=== PATIENT | female | born 1980 ===

== ENCOUNTER 2023-06-25 15:13 | Outpatient (AMB) | payer OTHER, SELFPAY ==
--- NOTE | 2023-06-25 15:15 | A.OFFVIS_ITS ---
Vital Signs 06/25/23 15:18 06/25/23 15:18 Height 5 ft 6 in 5 ft 6 in BP 106/74 Blood Pressure Location Rt brachial Position Sitting Pulse 99 Pulse Source Pulse Oximeter Pulse Oximetry (%) 100 Oxygen Delivery Method Room Air Intake Visit Reasons: ENP-Chronic Migraines-CONF Intake Note: Patient for chronic migraines. Patient has migraines every day she takes rizatriptan it goes away but headache comes back later on. Allergies penicillin V Allergy (Unknown, Verified 06/25/23 15:20) Rash Sulfa (Sulfonamide Antibiotics) Allergy (Unknown, Verified 06/25/23 15:20) Rash Medication List - Last Reconciled 06/25/23 by ESTELLA Moreno carisoprodol 350 mg PO BID-TID PRN cholecalciferol (vitamin D3) (Vitamin D3) 25 mcg PO DAILY cyanocobalamin (vitamin B-12) 1,000 mcg PO DAILY diclofenac sodium 1.5% 30 drps topical TID escitalopram oxalate mg PO ibuprofen (IBU) 800 mg PO TID linaclotide (Linzess) 145 mcg PO DAILY loratadine 10 mg PO DAILY lorazepam 1 mg PO BID oxycodone ER (OxyContin) 20 mg PO BID pregabalin 200 mg PO BID HPI Comments Details: Right handed 42-yr-old female presents for new pt evaluation of headache disorder. Pt reports she has a h/o migraine in [id number], which eventually subsided for years. Then after she had her 2nd Covid-19 infection in Feb 2020 which resulted in primarily neurological s/s including cognitive difficulties and excessive daytime sleepiness w/ long-hauler COVID 19 symptoms (1st Covid-19 May w/ resp s/s), the migraines returned. She wakes up every day with a migraine, which responds to Rizatriptan 1/2 - 1 tab but then the headache returns later in the day. Pt also endorses:? Musculoskeletal disorders or injury: 2009 spinal fusion d/t scoliosis. Has handed neck tightness. BUE right greater than left pins and needles and weakness and swelling anytime she wakes up even after a short nap. Has done OT has not helped. Cramps: leg cramps at rest Mood d/o: Anxiety, Depression Sleep d/o: sleep diff, patient states she is diagnosed herself with narcolepsy. Respiratory d/o: Asthma Clotting or hematology d/o: RUE DVT in 2021, s/p Eliquis x's 6 months. She did see her assistant manager pt at [place]- Dr Vogt. History of seizure, syncope, or drop attacks: She has passed out quite often - states d/t hypotension, not eating. GI d/o: IBS- Constipation. Pertinent denials include: History of concussion/head injury, Respiratory d/o, CV disease, Family history of migraine or other headache disorder Headache questionnaire:? Typical headache characteristics: Prodrome symptoms: none Aura: No preceding aura. During headache may have blurry vision, halos, flashing lights, weekly lines, floaters, difficulty focusing eyes. Difficulty speaking, stuttering speech, word-finding difficulty. Pain intensity: Severe Location, quality, characteristics: Throbbing in bilateral but more left-sided temples and frontal region, can also be on top of head. Associated symptoms? Severe photophobia, severe phonophobia, osmophobia, nausea and vomiting, severe dizziness, difficulty concentrating, teary eye, fatigue. Activity intolerance. Hand and finger weakness and tingling, occurs with and without headache, often upon waking up. Postdrome: Lingering headache Triggers: Poor sleep, strong smells from food, waking up from sleep and nap, skipping meals, stress. Standing up and bending over worsens headache. Menstrual triggers: headaches are worse. Time of day: No specific time of day Duration and Frequency: 2-3 days per week. With acute analgesic, her request hours. Without medication lasts all day. How does headache impact your life? Can not do daily activities. Current acute medication use/interventions: On carisoprodol, ibuprofen, OxyContin for chronic pain syndrome Current preventative medication use: None Non-pharmacological interventions: Rest Lifestyle considerations: Sleep routine: Bedtime: 3-6am. Wake-up time: 2-3 hours after falling asleep. Sleep difficulties: Endorses: Snoring- if very tired, Excessive daytime sleepiness, Fatigue, Leg Cramps- at rest. Extreme emotion- has caused dizziness where she has to sit down. Vivid dreams- and within seem very real upon awakenin g. No family h/o narcolepsy s/s. Caffeine use: None Substance use: None Exercise:? Stretching Employment:? On disability d/t chronic back pain Family planning: No current plans. [facility] Medical History (Updated 07/08/23 @ 07:43 by ESTELLA Moreno) Superficial venous thrombosis of right upper extremity Major depressive disorder Reactive airway disease Hematuria Fibromyalgia Fibroadenoma Esophageal dysmotility GODWIN (generalized anxiety disorder) Dry eye syndrome Chronic back pain Anemia Surgical History H/O lumbosacral spine surgery Family History Mother HTN (hypertension) Social History Patient Tobacco Use Status: Never used Tobacco Physical Exam Vital Signs: Last Vital Signs Pulse 99 06/25/23 15:18 BP 106/74 06/25/23 15:18 Pulse Ox 100 06/25/23 15:18 Oxygen Delivery Method Room Air 06/25/23 15:18 Const Orientation/consciousness: patient oriented x3 HEENT Other: No palpable scalp tenderness. Head: Yes normocephalic Resp Effort & Inspection: normal respiratory effort and able to speak in complete sentences Neuro Other: Photophobia Bilateral cervical tightness. General: patient oriented x3 Cranial nerves: Yes CN's II-XII intact bilaterally Cognition (Neuro): normal cognition Gait exam (Neuro): Normal gait present Deep tendon reflexes (DTR's): Right triceps reflex intensity grade: 2+, Left triceps reflex intensity grade: 2+, Rt Biceps (C5, C6): 2+, Left biceps reflex intensity grade: 2+, Right brachioradialis reflex intensity grade: 2+, Left brachioradialis reflex intensity grade: 2+, Right patellar reflex intensity grade: 2+ and Left patellar reflex intensity grade: 2+ Coordination: [id number] test normal and Romberg test negative Pupils: Normal pupillary reactivity/response: bilateral Psych Appearance: grossly normal Mental Status: mental status grossly normal Speech and movement: Normal speech and movement present Affect: normal affect Attitude: cooperative Thought process: Normal thought process present Results Reviewed Results Reviewed: 07/30/23, Brain MRI w/wo: COMPARISON: CT scan of the head 08/09/2017 FINDINGS: The visualized cervical marrow is mildly diminished in signal on the sagittal T1-weighted images. This may be due to red marrow transformation, which can be correlated with CBC. The ventricles are normal in size. The cervicomedullary junction and midline structures are unremarkable. There is no mass effect or extra-axial fluid collection. The flow voids through the muscogee of [place] are maintained, and there is no diffusion abnormality or abnormal susceptibility artifact. The brain parenchyma is normal in signal. The major dural venous sinuses are patent. No abnormal intracranial enhancement. The visualized extracranial soft tissues and orbital structures are unremarkable. IMPRESSION: 1. Unremarkable MRI examination of the brain with and without contrast. 2. The visualized the visualized cervical marrow is mildly diminished in signal on the sagittal T1-weighted images, which may be due to red marrow transformation. , CT Head Venogram COMPARISONS: CT head 08/09/2017. FINDINGS: The superior sagittal sinus and bilateral transverse sinuses, sigmoid sinuses, and jugular bulbs are patent and normal in caliber. The right transverse and sigmoid sinuses are dominant. The internal cerebral veins, basal veins of Vilma, vein of [place], and straight sinus are patent. Cavernous sinuses demonstrate symmetric contour and enhancement. No filling defect or occlusion in the visualized major cortical veins. Other findings: Major intracranial arteries are patent. Visualized intracranial structures are unremarkable. Extracranial soft tissues and bones are unremarkable. Paranasal sinuses and mastoids are clear. IMPRESSION: Normal CT venogram of head. No evidence of dural venous sinus thrombosis. 05/21/23, C-spine MRI w/o, COMPARISON: Cervical spine MRI performed 11/24/2018. FINDINGS: ALIGNMENT, VERTEBRAE, MARROW, AND DISCS: Cervical alignment is normal. Partially imaged thoracic scoliosis. Vertebral body heights are preserved. There is no significant marrow signal abnormality. Intervertebral disc heights are maintained. There is partially imaged artifact from upper thoracic posterior fusion hardware. POSTERIOR FOSSA AND CORD: Visualized posterior fossa is normal. The cervical cord is normal in signal and caliber. PARASPINAL TISSUES: Soft tissues of the neck are unremarkable. Major cervical flow voids are present. DETAILED FINDINGS BY LEVEL: C2-C3: Small right paracentral disc protrusion. No significant canal stenosis or neural foraminal narrowing. C3-C4: Small central disc protrusion. No significant canal stenosis or neural foraminal narrowing. C4-C5: Mild right neural foraminal narrowing due to uncovertebral joint spurring, new. No significant canal stenosis or neural foraminal narrowing. C5-C6: Uncovertebral joint spurring again resulting in mild right neural foraminal narrowing. No significant canal stenosis or left neural foraminal narrowing. C6-C7: There is again uncovertebral joint spurring causing mild right neural foraminal narrowing. No significant canal stenosis or left neural foraminal narrowing. C7-T1: No significant canal stenosis or neural foraminal narrowing. IMPRESSION: Mild degenerative changes of the cervical spine as described above. In addition to the existing mild neural foraminal stenosis on the right at C5-C6 and C6-C7, there is now also mild right neural foraminal narrowing at C4-C5 due to uncovertebral joint spurring. Assessment & Plan Assessment & Plan (1) Morning headache: Code(s): R51.9 - Headache, unspecified Category: Medical (2) Snoring: Code(s): R06.83 - Snoring Category: Medical (3) Excessive daytime sleepiness: Code(s): G47.19 - Other hypersomnia Category: Medical (4) Parasomnia: Code(s): G47.50 - Parasomnia, unspecified Category: Medical (5) Cervicalgia: Code(s): M54.2 - Cervicalgia Category: Medical (6) Insomnia: Code(s): G47.00 - Insomnia, unspecified Category: Medical (7) Migraine with aura: Code(s): G43.109 - Migraine with aura, not intractable, without status migrainosus Category: Medical Plan Pt advised to undergo: In-lab PSG to assess for sleep apnea, PLMS. In-lab PSG requested as patient is chronic opioid therapy. Will request previous EMG and had spine imaging. For overall headache management: Optimize good self-care, including but not limited to maintaining a healthy diet , adequate fluid intake, adequate sleep, and engaging in regular physical activity. For headache triggers: Track headaches, especially after any treatment regimen changes. [employer] is one of many headache tracking apps. Light sensitivity tips: Patient may try blue light filtering glasses, green glasses, green light therapy. Avoid wearing sunglasses inside. For acute headache treatment: Discussed importance of taking acute medications at the first sign of headache, however stressed importance of avoiding acute medication overuse (especially with combined headache medications). Trial Ubrogepant (Ubrelvy) 100mg tab, 1/2 - 1 tab (50-100mg) at onset of headache, may repeat in 2 hours. Max of 2 tabs (200mg) per 24 hours. May adjunct with OTC Tylenol 650mg q 4 hours, Ibuprofen 600mg q 6 hours, or Naproxen 440mg q 12 hrs prn. May continue rizatriptan 10 mg p.r.n., may take with Ubrelvy. Potential adverse effects of gepants, including but not limited to fatigue, nausea, dry mouth, constipation. Previous acute migraine medication trials: Sumatriptan- ineffective, drowsy. Zolmitriptan- ineffective. Acute migraine medication contraindications: None at this time For headache prevention medication: Preventative medications should be taken routinely as prescribed for best effect, it may take several weeks for full effect to take effect. Start Riboflavin 400mg qam Continue Magnesium 400-500mg qhs Start Emgality 240 mg subcu x1, followed by 120 mg subcu q.month. Potential adverse effects of Emgality, including but not limited to injection site reactions. Previous migraine prevention medication trials: Amitriptyline and Nortriptyline: not tolerated, Duloxetine- caused hallucinations, Venlafaxine- not tolerated, Indomethacin- unsure Migraine prevention medication contraindications: BBs and ant-HTN tx's d/t low BP and h/o syncope. f/b Dr Aguilera- PS&S. Information also given on non-pharmacological interventions, such as Cefaly or Nerivio neuromodulation devices. Case discussed with Dr Cintia Lua. Pt to follow-up in 2-3 months or sooner prn. Orders: Orders RT PSG in-lab sleep study 06/25/23 R51.9 - Headache, unspecified, R06.83 - Snoring, G47.19 - Other hypersomnia, G47.50 - Parasomnia, unspecified, F11.90 - Opioid use, unspecified, uncomplicated Medications: New ubrogepant (Ubrelvy) take at onset of migraine, may repeat in 2hrs 50 - 100 mg (0.5 - 1 x 100 mg) PO ONCE PRN 16 tabs 3RF migraine headache 30 days riboflavin (vitamin B2) 400 mg PO DAILY 30 tabs 6RF 30 days galcanezumab-gnlm (Emgality Pen) Loading dose: 120 mg subcu injection x2 in alternate sites (total 240 mg). To be followed by maintenance dose of 120 mg subcu q.month. 240 mg (2 mL) subcut ONCE 2 mL 0RF 30 days Coding Level of Care Code New Pt Level 4 (02669) Diagnoses Morning headache R51.9 Snoring R06.83 Excessive daytime sleepiness G47.19 Parasomnia G47.50 Cervicalgia M54.2 Insomnia G47.00 Migraine with aura G43.109 Miracle Sleepiness Scale Questions Sitting and reading: high chance of dozing Watching TV: high chance of dozing Sitting inactive in a theater, movie etc.: high chance of dozing As a passenger in a car for an hour without break: high chance of dozing Lying down in the afternoon when circumstances permit: high chance of dozing Sitting and talking to someone: slight chance of dozing Sitting quietly after lunch without alcohol: high chance of dozing In a car, while stopped for a few minutes in the traffic: slight chance of dozing ESS < 10: normal, ESS > 12: pathologic: 20
[2023-06-25 15:18] VITALS: BP 106/74; PULSE 99; O2SAT 100
== END 2023-06-25 16:30 | disposition home or self-care (01) ==
PROVIDERS: PCP Internal Medicine; Visit Provider Nurse Practitioner Family
DX: R51.9 Headache, unspecified (principal); R06.83 Snoring; G47.19 Other hypersomnia; G47.50 Parasomnia, unspecified; M54.2 Cervicalgia; G47.00 Insomnia, unspecified; G43.109 Migraine with aura, not intractable, without status migrainosus
CPT/HCPCS: 99204

== ENCOUNTER → 2023-06-25 15:13 | Outpatient (BNVA) | payer OTHER, SELFPAY | PROVIDERS: PCP Internal Medicine; Visit Provider Nurse Practitioner Family | DX: G47.50 Parasomnia, unspecified (principal); G47.19 Other hypersomnia; G47.00 Insomnia, unspecified; G43.109 Migraine with aura, not intractable, without status migrainosus; M54.2 Cervicalgia; R06.83 Snoring; Z79.891 Long term (current) use of opiate analgesic | CPT/HCPCS: 99202 ==

== ENCOUNTER → 2023-08-11 20:30 | Outpatient (REF) | payer OTHER, SELFPAY | LOC: HO.SL 20:30 | PROVIDERS: PCP Nurse Practitioner; Visit Provider Nurse Practitioner Family | DX: G47.19 Other hypersomnia (principal); G47.50 Parasomnia, unspecified; R06.83 Snoring; R51.9 Headache, unspecified | CPT/HCPCS: 95810 ==

== ENCOUNTER → 2023-08-11 22:04 | Outpatient (BNV) | payer OTHER, SELFPAY | PROVIDERS: PCP Nurse Practitioner; Visit Provider Psychiatry & Neurology Neurology | DX: R06.83 Snoring (principal) | CPT/HCPCS: 95810 ==

== ENCOUNTER 2023-09-29 07:32 | Outpatient (AMB) | payer OTHER, SELFPAY ==
--- NOTE | 2023-09-29 07:32 | MHC.OFFVIS ---
Intake Visit Reasons: 3 mo f/u Intake Note: Pt presents for 4 months via telehealth for follow up for migraines. Pt states she has seen slight improvement. Program Clinician Required: No Allergies penicillin V Allergy (Unknown, Verified 09/29/23 07:34) Rash Sulfa (Sulfonamide Antibiotics) Allergy (Unknown, Verified 09/29/23 07:34) Rash Medication List - Last Reconciled 09/29/23 by ESTELLA Moreno carisoprodol 350 mg PO BID-TID PRN cholecalciferol (vitamin D3) (Vitamin D3) 25 mcg PO DAILY cyanocobalamin (vitamin B-12) 1,000 mcg PO DAILY diclofenac sodium 1.5% 30 drps topical TID escitalopram oxalate mg PO galcanezumab-gnlm (Emgality Pen) 240 mg (2 mL) subcut ONCE 30 days ibuprofen (IBU) 800 mg PO TID linaclotide (Linzess) 145 mcg PO DAILY loratadine 10 mg PO DAILY lorazepam 1 mg PO BID modafinil 100 mg PO DAILY 30 days naloxegol (Movantik) 12.5 mg PO QAM oxycodone ER (OxyContin) 20 mg PO BID pregabalin 200 mg PO BID riboflavin (vitamin B2) 400 mg PO DAILY 30 days ubrogepant (Ubrelvy) 50 - 100 mg (0.5 - 1 x 100 mg) PO ONCE PRN 30 days HPI Comments Details: 43-yr-old female presents for f/u televisit via [employer]. Pt reports she had an interval steroid cervical injection, which has has helped a little. She has also been having increased constipation- working w/ GI. She states she is not having a daily headache, but she continues to have 1-2 migraines days per week. Notes that her migraines are typically better when the wetaher is warmer, and worse when the weather is colder. She is currently using Rizatriptan prn- takes the edge off and causes sleepiness. The Ubrelvy has not yet been approved or denied. Her Emgality was just approved by her insurance in late August. Unfortunately, she picked the Emgality up and did not refrigerate it- states the pharmacy did not tell her to refrigerate it. And she was nervous to take it so has not used it yet. Baseline headache characteristics: Aura: No preceding aura. During headache may have blurry vision, halos, flashing lights, weekly lines, floaters, difficulty focusing eyes. Difficulty speaking, stuttering speech, word-finding difficulty. Pain intensity: Severe Location, quality, characteristics: Throbbing in bilateral but more left-sided temples and frontal region, can also be on top of head. Associated symptoms? Severe photophobia, severe phonophobia, osmophobia, nausea and vomiting, severe dizziness, difficulty concentrating, teary eye, fatigue. Activity intolerance. Hand and finger weakness and tingling, occurs with and without headache, often upon waking up. Postdrome: Lingering headache The in-lab sleep study did not show any evidence of sleep apnea or PLMS. She continues to have excessive daytime. She states she has felt light headed- like she would fall over if she did not grab onto something- when laughing. She was tried on Methylphenidate a few years ago- when in school to help with her focus- which was helpful. COUNT INCLUDES THE [facility] Medical History (Updated 09/29/23 @ 18:17 by ESTELLA Moreno) Superficial venous thrombosis of right upper extremity Major depressive disorder Reactive airway disease Hematuria Fibromyalgia Fibroadenoma Esophageal dysmotility GODWIN (generalized anxiety disorder) Dry eye syndrome Chronic back pain Anemia Surgical History H/O lumbosacral spine surgery Family History Mother HTN (hypertension) Social History Patient Tobacco Use Status: Never used Tobacco Physical Exam Const General: cooperative and no acute distress Orientation/consciousness: patient oriented x3 Resp Effort & Inspection: normal respiratory effort and able to speak in complete sentences Neuro General: patient oriented x3 Cognition (Neuro): normal cognition Psych Appearance: grossly normal Mental Status: mental status grossly normal Speech and movement: Clear speech present Affect: normal affect Attitude: cooperative Telehealth Telehealth Telehealth Platform: [facility] Location of provider rendering services: practice address Location of patient: address on file Patient Identification confirmed using: Name, : Yes Telehealth method: video Patient verbally consented to treatment: Yes Patient verbally consented to billing insurance company: Yes Patient informed of any privacy concerns related to visit: Yes Minutes spent on Phone/Video with Pt.: 29 Assessment & Plan Assessment & Plan (1) Migraine with aura: Code(s): G43.109 - Migraine with aura, not intractable, without status migrainosus Category: Medical (2) Hypersomnia: Code(s): G47.10 - Hypersomnia, unspecified Category: Medical Plan For excessive daytime sleepiness/hypersomnia. Reviewed In-lab PSG- no evidence for sleep apnea or PLMS. Discussed f/u tetsing- in-lab PSG w/ MSLT- however pt would need to hold her lorazepam, escitalopram, pregbablin- and she is not currently comfortable doing this. I am not confident that pt's episode of lightheadedness is actually a catpley symptom, and pt is not comfortable undergoing LP to obtain CSF Orexin level. Thus, will pt w/ low dose Modafinil 100mg qam - in hope sthis helps her EDS/hypersomnia s/s. Will forward my note to Dr Aguilera- her pain managmenet provide. ? ? For overall headache management: Optimize good self-care, including but not limited to maintaining a healthy diet, adequate fluid intake, adequate sleep, and engaging in regular physical activity. ? For acute headache treatment: Discussed importance of taking acute medications at the first sign of headache, however stressed importance of avoiding acute medication overuse (especially with combined headache medications). Will f/u on prior auth status of Ubrelvy. When available, start Ubrogepant (Ubrelvy) 100mg tab, 1/2 - 1 tab (50-100mg) at onset of headache, may repeat in 2 hours. Max of 2 tabs (200mg) per 24 hours. May adjunct with OTC Tylenol 650mg q 4 hours, Ibuprofen 600mg q 6 hours, or Naproxen 440mg q 12 hrs prn. May continue rizatriptan 10 mg p.r.n., may take with Ubrelvy. Potential adverse effects of gepants, including but not limited to fatigue, nausea, dry mouth, constipation. Previous acute migraine medication trials: Sumatriptan- ineffective, drowsy. Zolmitriptan- ineffective. Acute migraine medication contraindications: None at this time ? For headache prevention medication: Preventative medications should be taken routinely as prescribed for best effect, it may take several weeks for full effect to take effect. Start Riboflavin 400mg qam Continue Magnesium 400-500mg qhs Again start Emgality 240 mg subcu x1, followed by 120 mg subcu q.month. Will arrange injection training appt w/ our RN- will provide a sample to replace the Emgality loading dose. Potential adverse effects of Emgality, including but not limited to injection site reactions. Previous migraine prevention medication trials: Amitriptyline and Nortriptyline: not tolerated, Duloxetine- caused hallucinations, Venlafaxine- not tolerated, Indomethacin- unsure Migraine prevention medication contraindications: BBs and ant-HTN tx's d/t low BP and h/o syncope. Caution w/ aimovig or qulipta as pt has constipation. ? ? Pt to follow-up in 3-6 months or sooner prn. Addendum- Pharmacy called- concenred that Modafinil would reduce effectiveness of pain medication, thus order for low dose methylphenidate was placed instead. Medications: New modafinil 100 mg PO DAILY 30 days 30 tabs 1RF Coding Level of Care Code Tele Est Pt Level 4 (42380) Diagnoses Migraine with aura G43.109 Hypersomnia G47.10
== END 2023-09-29 11:10 | disposition home or self-care (01) ==
LOC: HO.HSMS 07:32
PROVIDERS: PCP Internal Medicine; Visit Provider Nurse Practitioner Family
DX: G43.109 Migraine with aura, not intractable, without status migrainosus (principal); G47.10 Hypersomnia, unspecified
CPT/HCPCS: 99214

== ENCOUNTER → 2023-09-29 07:32 | Outpatient (BNVA) | payer OTHER, SELFPAY | PROVIDERS: PCP Internal Medicine; Visit Provider Nurse Practitioner Family ==

== ENCOUNTER → 2023-10-01 15:07 | Outpatient (BNVA) | payer OTHER, SELFPAY | PROVIDERS: PCP Internal Medicine; Visit Provider Nurse Practitioner Family ==

== ENCOUNTER → 2023-11-02 15:18 | Outpatient (BNVA) | payer OTHER, SELFPAY | PROVIDERS: PCP Internal Medicine; Visit Provider Nurse Practitioner Family ==

== ENCOUNTER → 2023-12-06 15:44 | Outpatient (BNVA) | payer OTHER, SELFPAY | PROVIDERS: PCP Internal Medicine; Visit Provider Nurse Practitioner Family ==

== ENCOUNTER → 2024-01-13 14:44 | Outpatient (BNVA) | payer OTHER, SELFPAY | PROVIDERS: PCP Internal Medicine; Visit Provider Nurse Practitioner Family ==

== ENCOUNTER → 2024-02-17 14:41 | Outpatient (BNVA) | payer OTHER, SELFPAY | PROVIDERS: PCP Internal Medicine; Visit Provider Nurse Practitioner Family ==

== ENCOUNTER 2024-04-18 14:09 | Outpatient (AMB) | payer OTHER, SELFPAY ==
--- NOTE | 2024-04-18 14:30 | MHC.OFFVIS ---
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 Patient reports, she was diagnosed with Left upper arm venous thrombosis approx 1-2 weeks ago. She was restarted on Eliquis. She previously took Eliquis for a RUE superficial thrombosis. She is f/b Dr Whitehead at [facility] heme/onc. Also states she was told she has a atypical form of anemia. Pt reports today she is most bothered by her BUE hand and finger dull aching pain and weakness. States this pain is triggered by anytime she falls asleep, and then lasts for hours. Her hand grasp feels weak. She continues to have neck pain and stiffness- states her last cervical nerve block was not helpful. Her PCP gave her a steroid course 2 weeks ago, which helped but no she is a not continue this for long. She recently saw [facility] rheumatology, where she had normal hand x-rays, and did not offer new treatment options. In the past, she did OT, wrist splints in the past, which did not help. Had a right elbow injection once, years ago, but caused right 1st finger numbness. She notes hse has joint pain and stiffness everywhere. 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 Pt reports the Emgality is helpful, but it wears off 7-10 days before her next dose is due. She is using Rizatriptan when home, as its onset is quicker but makes her sleepy. And uses Ubrelvy when outside of the home, as it helps but does not cause as much sleepiness. She states she is not having a daily headache, but she continues to have 1-2 migraines days per week. Notes that her migraines are typically better when the wetaher is warmer, and worse when the weather is colder. She is currently using Rizatriptan prn- takes the edge off and causes sleepiness. The Ubrelvy has not yet been approved or denied. Her Emgality was just approved by her insurance in late August. Unfortunately, she picked the Emgality up and did not refrigerate it- states the pharmacy did not tell her to refrigerate it. And she was nervous to take it so has not used it yet. Baseline headache characteristics: Aura: No preceding aura. During headache may have blurry vision, halos, flashing lights, weekly lines, floaters, difficulty focusing eyes. Difficulty speaking, stuttering speech, word-finding difficulty. Pain intensity: Severe Location, quality, characteristics: Throbbing in bilateral but more left-sided temples and frontal region, can also be on top of head. Associated symptoms? Severe photophobia, severe phonophobia, osmophobia, nausea and vomiting, severe dizziness, difficulty concentrating, teary eye, fatigue. Activity intolerance. Hand and finger weakness and tingling, occurs with and without headache, often upon waking up. Postdrome: Lingering headache The in-lab sleep study did not show any evidence of sleep apnea or PLMS. She continues to have excessive daytime. [facility] Medical History (Updated 04/18/24 @ 16:58 by ESTELLA Moreno) Superficial venous thrombosis of right upper extremity Major depressive disorder Reactive airway disease Hematuria Fibromyalgia Fibroadenoma Esophageal dysmotility GODWIN (generalized anxiety disorder) Dry eye syndrome Chronic back pain Anemia Surgical History H/O lumbosacral spine surgery Family History Mother HTN (hypertension) Social History Patient Tobacco Use Status: Never used Tobacco Physical Exam Vital Signs: Last Vital Signs BP 130/80 04/18/24 14:40 Const General: cooperative and no acute distress Orientation/consciousness: patient oriented x3 Resp Effort & Inspection: normal respiratory effort and able to speak in complete sentences Neuro Other: Photophobia BLE negative Tinel, Phalen, medial compression test. BLE we, symmetric hand grasp. General: patient oriented x3 Cognition (Neuro): normal cognition Psych Appearance: grossly normal Mental Status: mental status grossly normal Speech and movement: Clear speech present Affect: normal affect Attitude: cooperative Assessment & Plan Assessment & Plan (1) Migraine with aura: Code(s): G43.109 - Migraine with aura, not intractable, without status migrainosus Category: Medical (2) Hypersomnia: Code(s): G47.10 - Hypersomnia, unspecified Category: Medical (3) Stiffness of joint: Code(s): M25.60 - Stiffness of unspecified joint, not elsewhere classified Category: Medical Plan For hand and body pain, predominantly stiffness: We will request hematology notes and labs from Dr. Whitehead at [facility]. Upon review, consider additional lab work such as nutritional studies, autoimmune panel, anti godwin Ab. For excessive daytime sleepiness/hypersomnia. Previous In-lab PSG- no evidence for sleep apnea or PLMS. Continue methylphenidate 10 mg p.o. b.i.d. Patient can not take modafinil due to concurrent oxycodone use. ? For overall headache management: Optimize good self-care, including but not limited to maintaining a healthy diet, adequate fluid intake, adequate sleep, and engaging in regular physical activity. ? For acute headache treatment: Continue Ubrogepant (Ubrelvy) 100mg tab, 1/2 - 1 tab (50-100mg) at onset of headache, may repeat in 2 hours. Max of 2 tabs (200mg) per 24 hours. May adjunct with OTC Tylenol 650mg q 4 hours, Ibuprofen 600mg q 6 hours, or Naproxen 440mg q 12 hrs prn. May use Ubrogepant daily during last week of Emgality cycle, to minimize wearing off effects. May continue rizatriptan 10 mg p.r.n., may take with Ubrelvy. Potential adverse effects of gepants, including but not limited to fatigue, nausea, dry mouth, constipation. Previous acute migraine medication trials: Sumatriptan- ineffective, drowsy. Zolmitriptan- ineffective. Acute migraine medication contraindications: None at this time ? For headache prevention medication: Continue Riboflavin 400mg qam Continue Magnesium 400-500mg qhs Continue Emgality 120 mg subcu q.month- as patient has had good clinical effect from use. Previous migraine prevention medication trials: Amitriptyline and Nortriptyline: not tolerated, Duloxetine- caused hallucinations, Venlafaxine- not tolerated, Indomethacin- unsure Migraine prevention medication contraindications: BBs and ant-HTN tx's d/t low BP and h/o syncope. Caution w/ aimovig or qulipta as pt has constipation. ? Will follow-up upon review of above and patient to follow-up in clinic in 6 months or sooner prn. Coding Level of Care Code Est Pt Level 4 (80596) Complex EM visit Add On G2211 Diagnoses Migraine with aura G43.109 Hypersomnia G47.10 Stiffness of joint M25.60
[2024-04-18 14:40] VITALS: BP 130/80
== END 2024-04-18 15:37 | disposition home or self-care (01) ==
PROVIDERS: PCP Internal Medicine; Visit Provider Nurse Practitioner Family
DX: G43.109 Migraine with aura, not intractable, without status migrainosus (principal); G47.10 Hypersomnia, unspecified; M25.60 Stiffness of unspecified joint, not elsewhere classified
CPT/HCPCS: 99214; G2211

== ENCOUNTER → 2024-04-18 14:09 | Outpatient (BNVA) | payer OTHER, SELFPAY | PROVIDERS: PCP Internal Medicine; Visit Provider Nurse Practitioner Family | DX: G43.109 Migraine with aura, not intractable, without status migrainosus (principal); G47.10 Hypersomnia, unspecified; M25.60 Stiffness of unspecified joint, not elsewhere classified; Z79.01 Long term (current) use of anticoagulants | CPT/HCPCS: 99212 ==

== ENCOUNTER 2024-05-16 09:41 | Outpatient (REF) | payer OTHER, SELFPAY ==
[2024-05-16 18:40] LABS: Basophils Percent Auto 0.5 % (0-2); Eosinophils Absolute Auto 0.1 X10*3/uL (0.0-0.4); Eosinophils Percent Auto 1.6 % (0-4); Hemoglobin 8.3 g/dl (12.0-16.0); Mean Platelet Volume 13.1 fL (9.4-12.3); Red Cell Distribution Width 13.2 % (11.0-16.0); SCAN SMEAR FLAG 1
[2024-05-16 18:42] LABS: Hematocrit 26.6 % (37.0-47.0); Imm Gran Abs Auto 0.01 X10*3/uL (0.00-0.03); Imm Gran Pct Auto 0.3 % (0.0-0.4); Lymphocytes Absolute Auto 1.7 X10*3/uL (1.2-4.9); Lymphocytes Percent Auto 46.3 % (20-40); MANUAL DIFF FLAG SCAN; Mean Corpuscular HGB Conc 31.2 g/dl (31.0-35.0); Mean Corpuscular Hemoglobin 29.9 pg (27.0-33.0); Mean Corpuscular Volume 95.7 fL (80.0-98.0); Monocytes Absolute Auto 0.3 X10*3/uL (0.1-1.2); Monocytes Percent Auto 9.1 % (2-11); Neutrophils Absolute Auto 1.6 x10*3/uL (2.0-8.3); Neutrophils Percent Auto 42.2 % (45-73); PLT CLUMP 1; Red Blood Count 2.78 X10*6/uL (4.20-5.50)
[2024-05-16 18:50] LABS: PLT ABN DIST 1
[2024-05-16 18:51] LABS: White Blood Count 3.7 X10*3/uL (4.8-10.8)
[2024-05-16 19:23] LABS: Rheumatoid Factor < 13.0 IU/mL (<15.0)
[2024-05-16 19:56] LABS: Alanine Aminotransferase 12 U/L (0-31); Albumin Level 3.6 g/dL (3.5-5.0); Alkaline Phosphatase 56 U/L (39-117); Anion Gap 9 (12-20); Aspartate Amino Transferase 20 U/L (5-31); Bilirubin Total 0.1 mg/dL (0.0-1.0); Blood Urea Nitrogen 14 mg/dL (9-16); Calcium 8.4 mg/dL (8.4-10.2); Carbon Dioxide 24 mmol/L (22-29); Chloride 113 mmol/L (96-108); Estimated Glomerular Filt Rate > 60; Glucose Random 86 mg/dL (60-115); Iron 23 mcg/dL (30-160); Magnesium 1.8 mg/dL (1.6-2.6); Percent Iron Saturation 8 % (15-50); Potassium 4.1 mmol/L (3.3-5.1); Sodium 142 mmol/L (135-145); Total Iron Binding Capacity 293 mcg/dL (228-428); Total Protein 6.7 g/dL (6.5-8.0); Unsaturated Iron Binding 270 ug/dL
[2024-05-16 19:59] LABS: Vitamin B12 > 2000 pg/mL (200-900)
[2024-05-16 20:03] LABS: Platelet Count 173 X10*3/uL (160-400); SLIDE REVIEW VERIFIED
[2024-05-16 20:04] LABS: Ferritin 8 ng/mL (10-250)
[2024-05-19 16:23] LABS: Anti Nuclear Antibody Screen NEGATIVE (NEGATIVE)
[2024-05-19 18:53] LABS: Methylmalonic Acid 92 nmol/L (55-335)
[2024-05-20 13:20] LABS: Vitamin D 25-OH, D2 <4 ng/mL; Vitamin D 25-OH, D3 28 ng/mL; Vitamin D 25-OH, Total 28 ng/mL (30-100)
[2024-05-20 16:28] LABS: Vitamin B6 29.1 ng/mL (2.1-21.7)
[2024-05-24 15:33] LABS: Vitamin B1 16 nmol/L (8-30)
== END 2024-05-16 09:42 | disposition home or self-care (01) ==
LOC: HO.HKASLDS 09:41
PROVIDERS: PCP Internal Medicine; Visit Provider Nurse Practitioner Family
DX: M25.60 Stiffness of unspecified joint, not elsewhere classified (principal); R61 Generalized hyperhidrosis; E53.8 Deficiency of other specified B group vitamins; R79.0 Abnormal level of blood mineral; D64.9 Anemia, unspecified
CPT/HCPCS: 36415; 80053; 82306; 82607; 82728; 82746; 83540; 83735; 83921; 84207; 84425; 85025; 86038; 86431

== ENCOUNTER 2024-05-26 16:37 | Outpatient (REF) | payer OTHER, SELFPAY | END 2024-05-26 16:38 | disposition home or self-care (01) | LOC: HO.LAB 16:37 | PROVIDERS: PCP Internal Medicine; Visit Provider Nurse Practitioner Family | DX: M25.60 Stiffness of unspecified joint, not elsewhere classified (principal) | CPT/HCPCS: 36415; 82180; 83090 ==

== ENCOUNTER 2024-08-18 09:44 | Outpatient (AMB) | payer OTHER, SELFPAY ==
--- NOTE | 2024-08-18 09:38 | MHC.OFFVIS ---
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 Accompanied by: Self / Same As Patient Allergies penicillin V Allergy (Unknown, Verified 08/18/24 09:39) Rash Sulfa (Sulfonamide Antibiotics) Allergy (Unknown, Verified 08/18/24 09:39) Rash Medication List - Last Reconciled 08/18/24 by ESTELLA Moreno apixaban (Eliquis) 5 mg PO BID carisoprodol 350 mg PO BID-TID PRN cholecalciferol (vitamin D3) 1,250 mcg PO QWEEK 12 weeks cyanocobalamin (vitamin B-12) 1,000 mcg PO DAILY diclofenac sodium 1.5% 30 drps topical TID galcanezumab-gnlm (Emgality Pen) 120 mg subcut ONCE 30 days ibuprofen (IBU) 800 mg PO TID loratadine 10 mg PO DAILY lorazepam 1 mg PO BID methylphenidate HCl 10 mg PO BID 30 days oxycodone ER (OxyContin) 20 mg PO BID pregabalin 200 mg PO BID riboflavin (vitamin B2) 400 mg PO DAILY 30 days rizatriptan 5 - 10 mg (0.5 - 1 x 10 mg) PO Q2H PRN 21 days sertraline 50 mg PO DAILY ubrogepant (Ubrelvy) 50 - 100 mg (0.5 - 1 x 100 mg) PO ONCE PRN 30 days HPI Comments Details: 43-yr-old female presents for f/u of migraine and hypersomnia. Pt reports she continues to struggle. She notes she now realizes that she is fernanda-menopausal. She was started on depo-provera- notes she cannot take estrogen d/t h/o recurrent blood clots. She also notes her lexapro was changed to zoloft, which she is tolerating better- not causing any residual sleepiness as most antidepressants have caused her sleepiness. She also reports she is undergoing a cervical spinal cord stimulator trial placement next week for treatment of ongoing cervicalgia and next stiffness- by Dr Nelson at [facility]. She continues to have chronic lumbar pain as well- however Dr. Nelson wanted to address the cervical symptoms 1st. She is hoping to eventually reduce her chronic opioid pain tx- d/t her concern for her general health and chronic constipation. August 2023 in-lab sleep study did not show any evidence of sleep apnea or PLMS. She continues to have excessive daytime sleepiness- though methylphenidate dose in the morning is helpful. She recently had a [id number] clinic evaluation in [place]. She states they primarily addressed her chronic STM difficulties, forgetfulness, poor recall of the time when she was sick with Covid-19. Pt reports she was advised that the cognitive difficulties would take time to resolve. Advised her to pace her activities, and to increase the NAC 600mg from qd to 1200mg tid. Offered dx- Myalgic Encephalomyelitis/Chronic Fatigue Syndrome. Patient reports, she has completed her course of Eliquis- as the last blood clot was considered superficial thought to be triggered by a blood draw. She is still f/b Dr Whitehead at [facility] heme/onc- and she can f/u w/ him prn for her h/o anemia. Interval lab results showed persistent anemia with 05/16/2024 H&H 8.3/26.6 low, iron 33 low, % saturation the low, ferritin 8 low vitamin B6 29 high, vitamin B12 greater than 2000, vitamin-D 28 low, folate 7 within normal limits, normal rheumatoid factor and NICO screen. She is scheduled for [facility] rheumatology consult in Oct. Pt reports today she is most bothered by her BUE hand and finger dull aching pain and weakness. States this pain is triggered by anytime she falls asleep- which is worse upon waking in the am but can also occur after she falls asleep unintentionally after her am methylphenidate wears off, and then lasts for hours. Her hand grasp feels weak. She does not have wrist splints. She continues to have neck pain and stiffness- states her last cervical nerve block was not helpful. Her PCP previously gave her a course of steroid course 2 weeks ago, which helped but no she is a not continue this for long. She recently saw [facility] rheumatology, where she had normal hand x-rays, and did not offer new treatment options. In the past, she did OT, wrist splints in the past, which did not help. Had a right elbow injection once, years ago, but caused right 1st finger numbness. In regards to her migraines, she reports the Emgality continues to be helpful, but does wear off some at the end of the injection cycle. She notes that the breakthrough migraine attacks are not as severe or debilitating- and is more responsive to her prn Ubrelvy. She is using Rizatriptan when home, as its onset is quicker but makes her sleepy. Baseline headache characteristics: Aura: No preceding aura. During headache may have blurry vision, halos, flashing lights, weekly lines, floaters, difficulty focusing eyes. Difficulty speaking, stuttering speech, word-finding difficulty. Pain intensity: Severe Location, quality, characteristics: Throbbing in bilateral but more left-sided temples and frontal region, can also be on top of head. Associated symptoms? Severe photophobia, severe phonophobia, osmophobia, nausea and vomiting, severe dizziness, difficulty concentrating, teary eye, fatigue. Activity intolerance. Hand and finger weakness and tingling, occurs with and without headache, often upon waking up. Postdrome: Lingering headache [facility]SH Medical History (Updated 08/18/24 @ 11:57 by ESTELLA Moreno) Superficial venous thrombosis of right upper extremity Major depressive disorder Reactive airway disease Hematuria Fibromyalgia Fibroadenoma Esophageal dysmotility GODWIN (generalized anxiety disorder) Dry eye syndrome Chronic back pain Anemia Surgical History H/O lumbosacral spine surgery Family History Mother HTN (hypertension) Social History Patient Tobacco Use Status: Never used Tobacco Physical Exam Const General: cooperative and no acute distress Orientation/consciousness: patient oriented x3 Resp Effort & Inspection: normal respiratory effort and able to speak in complete sentences Neuro Other: Patient is more alert today than this provider has previously seen. General: patient oriented x3 Cognition (Neuro): normal cognition Psych Appearance: grossly normal Mental Status: mental status grossly normal Speech and movement: Normal speech and movement present Affect: normal affect Attitude: cooperative Telehealth Telehealth Telehealth Platform: [facility] Location of provider rendering services: practice address Location of patient: address on file Patient Identification confirmed using: Name, : Yes Telehealth method: video Patient verbally consented to treatment: Yes Patient verbally consented to billing insurance company: Yes Patient informed of any privacy concerns related to visit: Yes Minutes spent on Phone/Video with Pt.: 39 Assessment & Plan Assessment & Plan (1) Stiffness of joint: Code(s): M25.60 - Stiffness of unspecified joint, not elsewhere classified Category: Medical (2) Paresthesia and pain of both upper extremities: Code(s): R20.2 - Paresthesia of skin; M79.601 - Pain in right arm; M79.602 - Pain in left arm Category: Medical (3) Stiffness of joint: Code(s): M25.60 - Stiffness of unspecified joint, not elsewhere classified Category: Medical (4) Muscle cramps: Code(s): R25.2 - Cramp and spasm Category: Medical (5) Anemia: Code(s): D64.9 - Anemia, unspecified Category: Medical (6) 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 Continue vitamin-D supplement for now. We will adjust/increase magnesium from magnesium oxide 400 mg daily at bedtime to magnesium glycinate 500 mg daily at bedtime. Trial bilateral carpal tunnel splints at night while sleeping- prescription written, patient may take prescription to a medical supply store of her choosing. We will recheck labs, including nutritional studies, anti godwin Ab. Advised to follow-up with Dr. Whitehead regarding ongoing anemia. Rheumatology consult as ordered. Future consideration additional autoimmune workup. For excessive daytime sleepiness/hypersomnia and cognitive symptoms: Previous In-lab PSG- no evidence for sleep apnea or PLMS. Continue methylphenidate 10 mg p.o. b.i.d. Concur with increasing NAC supplement to 1200 mg t.i.d.. We will request OT cognitive eval and treat. Patient can not take modafinil due to concurrent oxycodone use. Future considerations increasing methylphenidate or adjusting to a extended-release formula- however would hold until after her upcoming spinal pain stimulator trial. ? For overall headache management: Optimize good self-care, including but not limited to maintaining a healthy diet, adequate fluid intake, adequate sleep, and engaging in regular physical activity. ? For acute headache treatment: Continue Ubrogepant (Ubrelvy) 100mg tab, 1/2 - 1 tab (50-100mg) at onset of headache, may repeat in 2 hours. Max of 2 tabs (200mg) per 24 hours. May adjunct with OTC Tylenol 650mg q 4 hours, Ibuprofen 600mg q 6 hours, or Naproxen 440mg q 12 hrs prn. May use Ubrogepant daily during last week of Emgality cycle, to minimize wearing off effects. May continue rizatriptan 10 mg p.r.n., may take with Ubrelvy. Previous acute migraine medication trials: Sumatriptan- ineffective, drowsy. Zolmitriptan- ineffective. Acute migraine medication contraindications: None at this time ? For headache prevention medication: Continue Riboflavin 400mg qam As above, discontinue Magnesium 400-500mg qhs. Start magnesium glycinate 500 mg daily at bedtime Continue Emgality 120 mg subcu q.month- as patient has had good clinical effect from use- of greater than 30% reduction in monthly migraine days. Previous migraine prevention medication trials: Amitriptyline and Nortriptyline: not tolerated, Duloxetine- caused hallucinations, Venlafaxine- not tolerated, Indomethacin- unsure Migraine prevention medication contraindications: BBs and ant-HTN tx's d/t low BP and h/o syncope. Caution w/ aimovig or qulipta as pt has constipation. ? Will follow-up upon review of above and patient to follow-up in clinic in 6 months or sooner prn. Orders: Orders Complete Blood Count Auto Diff Today D64.9 - Anemia, unspecified IRON PROFILE Today D64.9 - Anemia, unspecified Erythrocyte Sedimentation Rate Today D64.9 - Anemia, unspecified OT Evaluation and Treatment Today F06.70 - Mild neurocognitive disorder due to known physiological condition without behavioral disturbance, G43.109 - Migraine with aura, not intractable, without status migrainosus Other Ref Test - Misc Today M25.60 - Stiffness of unspecified joint, not elsewhere classified, R25.2 - Cramp and spasm Comprehensive Met. Panel Today D64.9 - Anemia, unspecified Ferritin Today D64.9 - Anemia, unspecified C Reactive Protein Today D64.9 - Anemia, unspecified Medications: New [Bilateral cocked-up carpal tunnel wrist splint, apply nightly when sleeping.] As directed 2 ea 0RF M25.60 - Stiffness of unspecified joint, not elsewhere classified, M79.601 - Pain in right arm, M79.602 - Pain in left arm, R20.2 - Paresthesia of skin acetylcysteine (NAC) 1,200 mg PO TID magnesium glycinate 500 mg (5 x 100 mg magnesium) PO BEDTIME 90 days 450 caps 3RF Refilled ubrogepant (Ubrelvy) take at onset of migraine, may repeat in 2hrs 50 - 100 mg (0.5 - 1 x 100 mg) PO ONCE 30 days PRN 16 tabs 11RF migraine headache cholecalciferol (vitamin D3) 1,250 mcg PO QWEEK 12 weeks 12 caps 1RF E55.9 - Vitamin D deficiency, unspecified methylphenidate HCl Partial Fill upon patient request. Last dose by 3pm. 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
--- OUTSIDE RECORDS SUMMARY | 2024-08-18 10:14 | XMS_ITS | Clinical Summary ---
Author Organization [facility] Address [address] [place] [address] Phone Care Team Providers Care Eyeletter Name Role Phone Bryan Estrella MD Primary Care Provider [phone] Allergies Active Allergy Reactions Criticality Noted Date Comments Bee Pollen 07/31/2020 Fentanyl 06/20/2024 Other 09/07/2017 Penicillins 04/01/2010 Sulfa (Sulfonamide Antibiotics) Hives High 11/07 Medications hydrocortisone (ANUSOL-HC) 2.5 % rectal cream Apply 1 Applicator topically 3 times daily. 2 Active triamcinolone (KENALOG) 0.1 % cream Apply to affected area BID x 2 weeks 0 Active pregabalin (LYRICA) 150 mg capsule Take 200 mg by mouth 2 (two) times a day. Max Daily Amount: 400 mg 1 Active magnesium oxide (MAG-OX) 400 mg magnesium tablet Take 1 tablet (400 mg total) by mouth 1 (one) time each day. 2 Active cholecalciferol (VITAMIN D-3) 25 mcg (1,000 unit) tablet Take 1 tablet (1,000 Units total) by mouth 1 (one) time each day. 1 Active ibuprofen (ADVIL,MOTRIN) 800 mg tablet Take 1 tablet (800 mg total) by mouth every 8 (eight) hours if needed for moderate pain or mild pain. 2 Active loratadine (CLARITIN) 10 mg tablet Take 1 tablet (10 mg total) by mouth 2 (two) times a day. 2 Active lidocaine (LIDODERM) 5 % patch Place 1 Patch onto the skin every 24 hours. 2 Active albuterol 2.5 mg /3 mL (0.083 %) nebulizer solution Inhale 3 mL (2.5 mg total) by mouth every 4 (four) hours if needed for wheezing. 2 Active albuterol HFA (PROAIR HFA ; PROVENTIL HFA ; VENTOLIN HFA) 90 mcg/actuation inhaler Inhale 2 puffs by mouth every 4 (four) hours if needed for wheezing (Cough). 2 Active tretinoin (RETIN-A) 0.05 % cream Apply pea sized amount QHS 1 Active methylphenidate (RITALIN) 5 mg tablet TAKE ONE TABLET BY MOUTH IN THE MORNING AND ONE TABLET AT NOON 1 Active diclofenac (VOLTAREN) 1 % topical gel Apply 2 g topically 2 times daily. Do not take with ibuprofen 1 Active hydrocortisone (WESTCORT) 0.2 % cream Apply to affected areas sparingly BID as needed, avoid skin creases or face 1 Active omeprazole (PriLOSEC) [address] capsule Take 1 capsule (40 mg total) by mouth 1 (one) time each day in the morning. 1 Active azelastine (ASTELIN) 137 mcg (0.1 %) nasal spray daily. 1 Active vortioxetine (Trintellix) 20 mg tablet Take by mouth. 1 Active triamcinolone (NASACORT) 55 mcg nasal inhaler Administer 1 spray into affected nostril(s) 1 (one) time each day. 1 Active aluminum-magnesi um hydroxide 200-200 mg/5 mL suspension Take 5 mL by mouth every 6 (six) hours if needed for indigestion. up to 10 days 0 Active fluocinolone and shower cap 0.01 % oil Apply 5 Drops topically three times a week. Apply small amount to scalp at night 3 x week 0 Active lidocaine (Lidocaine Pain Relief) 4 % patch Apply 1 patch topically 1 (one) time each day. 0 Active buPROPion (WELLBUTRIN) 75 mg tablet Take 1 tablet (75 mg total) by mouth 2 (two) times a day. 0 Active reservoir inhalation (INSPIREASE) device Use with inhalers 0 Active TENS unit electrodes 2X2 pad 2 Each by Does not apply route daily. 0 Active heating pads pad 1 Each by Does not apply route daily. Large heating pad for back 0 Active oxyCODONE (OxyCONTIN) 20 mg 12 hr abuse-deterrent tablet 1 Tab daily. 9 Active clonazePAM (KlonoPIN) 0.5 mg tablet Take 1 tablet (0.5 mg total) by mouth 2 (two) times a day if needed. Active carisoprodoL (SOMA) 350 mg tablet Take 1 tablet (350 mg total) by mouth at bedtime. 8 Active white petrolatum-pension examiner al oiL (Refresh P.M.) 57.3-42.5 % ointment apply 0.5 Inches to the eye at bedtime. Apply 0.5 inches to lower cul de sac 8 Active lifitegrast (Xiidra) 5 % dropperette 1 Drop 2 times daily. 8 Active biotin 1 mg capsule Take 1 Cap by mouth daily. 8 Active fluticasone propionate (FLONASE) 50 mcg/actuation nasal spray 2 sprays to each nostril daily 7 Active benzoyl peroxide 5 % gel Apply small amount to affected areas, daily in the morning 7 Active oxyCODONE (ROXICODONE) 30 mg immediate release tablet Take 30 mg by mouth 3 times daily. Active tiZANidine (ZANAFLEX) 4 mg tablet Take 1 Tab by mouth every 6 hours as needed for Muscle spasms. 7 Active polyethylene glycol (PEG) 17 gram/dose oral powder Take 17 g by mouth every 48 hours as needed for Constipation. May repeat dose as needed 4 Active peg 400-hypromellose -glycerin 1-0.2-0.2 % drops Place 1 Drop into both eyes as needed (when irritated). 4 Active furosemide (LASIX) 20 mg tablet Take 1 tablet (20 mg total) by mouth 1 (one) time each day if needed (swelling). Active escitalopram (LEXAPRO) 10 mg tablet TAKE 1&1/2 TABLETS BY MOUTH ONCE DAILY 4 Active predniSONE (DELTASONE) 10 mg tablet 5 Active Ubrelvy 100 mg tablet TAKE 1/2 ONE-HALF) OR 1 WHOLETABLET AT ONSET OF MIGRAINE. MAY REPEAT IN 2 HOURS 4 Active w-ualfff-ivdbkos e (NAC) 600 mg capsule Take 1 capsule (600 mg total) by mouth. 4 Active ammonium lactate (AMLACTIN) 12 % cream APPLY TO ARMS, TRUNK AND LEGS TWICE DAILY 5 Active ARIPiprazole (ABILIFY) 2 mg tablet Take 1 tablet (2 mg total) by mouth 1 (one) time each day. 5 Active cyanocobalamin (VITAMIN B-12) 1,000 mcg tablet Take 1 tablet (1,000 mcg total) by mouth 1 (one) time each day. 5 Active Emgality Pen 120 mg/mL injection pen INJECT CONTENTS OF 1 PEN UNDER THE SKIN ONCE MONTHLY 4 Active Emgality Pen 120 mg/mL injection pen INJECT CONTENTS OF 1 PEN UNDER THE SKIN ONCE MONTHLY 5 Active glucosamine aviles 2KCl-chondroit 500-400 mg tablet Take 1 tablet by mouth. 5 Active LORazepam (ATIVAN) 1 mg tablet Take 1 tablet (1 mg total) by mouth 2 (two) times a day if needed for anxiety. 5 Active lubiprostone (AMITIZA) 8 mcg capsule Take 1 capsule (8 mcg total) by mouth 2 (two) times a day. 4 Active lubiprostone (AMITIZA) 8 mcg capsule Take 1 capsule (8 mcg total) by mouth 2 (two) times a day. 5 Active GaviLyte-G 236-22.74-6.74 -5.86 gram solution USE DIRECTED BY GI 4 Active riboflavin (VITAMIN B2) 400 mg tablet Take 1 tablet (400 mg total) by mouth 1 (one) time each day. 5 Active rizatriptan (MAXALT) 10 mg tablet TAKE 1/2 TO 1 TABLET BY MOUTH AT ONSET OF MIGRAINE. MAY REPEAT DOSE IN 2 HOURS NEEDED FOR MIGRAINE HEADACHE. MAX 2 TABLETS PER DAY OR 4 T 5 Active terbinafine (LamISIL) 250 mg tablet Take 1 tablet (250 mg total) by mouth 1 (one) time each day. 4 Active fluconazole (DIFLUCAN) 150 mg tablet Take 1 tab by mouth now. May repeat in 72 hours if still symptomatic. 2 tablet 5 Active clotrimazole-bet amethasone (LOTRISONE) 1-0.05 % cream Apply 2 times daily for 5-7 days as needed for itching 15 g 1 5 Active sertraline (ZOLOFT) 50 mg tablet TAKE 1 TABLET BY MOUTH ONCE DAILY. STOP ESCITALOPRAM) 5 Active Drysol Dab-O-Matic 20 % external solution APPLY TOPICALLY DIRECTED ONCE DAILY AT BEDTIME IF NEEDED FOR EXCESSIVE SWEATING 5 Active fezolinetant 45 mg tabletIndication s:Menopausal vasomotor syndrome Take 45 mg by mouth 1 (one) time each day. 90 tablet 1 5 02/06/20 25 Active medroxyPROGESTER one 150 mg/mL injection Inject 1 mL (150 mg total) into the shoulder, thigh, or buttocks once every twelve (12) weeks. 1 mL 3 5 Active Hospital, Clinic, or Other Facility Administered Medication Ordered Dose Route Frequency Start Date End Date Status medroxyPROGESTERone (DEPO-PROVERA) injection 150 mgIndications:Surveill ance of contraceptive injection 150 mg IM Every 3 months 08/14/2024 2025 Active Active Problems Problem Noted Date Diagnosed Date Eczema 08/04/2024 Protein S deficiency (CMS/HCC V24) 08/04/2024 Breast fibroadenoma, left 06/22/2024 Overview (06/22/2024): 2022 LEFT BREAST, 2 O'CLOCK, RIBBON CLIP, CORE BIOPSY: - FIBROEPITHELIAL PROLIFERATION THE DIFFERENTIAL DIAGNOSIS INCLUDES THE EDGE OF A FIBROADENOMA, FIBROADENOMATOID HYPERPLASIA, AND A BENIGN PHYLLODES TUMOR. CLINICA Anemia 06/20/2024 Chronic constipation 06/20/2024 Chronic pain of left knee 06/20/2024 Dry eye syndrome 06/20/2024 Fibroadenoma of breast 06/20/2024 Generalized anxiety disorder 06/20/2024 Superficial venous thrombosis of right upper ext remity 06/20/2024 Overview (08/12/2024): 03/2024 OCCLUSIVE THROMBUS IN THE BASILIC VEIN Hand pain 03/17/2024 Right-sided chest pain 03/17/2024 Dysphagia 01/31/2024 Esophageal dysmotility 01/31/2024 GERD (gastroesophageal reflux disease) Superficial thrombophlebitis 02/26/2022 Personal history of suicidal behavior 02/04/2022 Overview (06/20/2024): Followed by weekly therapist and psychiatry for med review takes Paxil Hematuria 07/06/2021 Post viral syndrome 05/22/2021 Overview (01/31/2024): [facility] Memory problem 09/12/2020 Chronic cough 08/03/2020 Overview (01/31/2024): Dr Avila Reactive airway disease without complication Attention deficit 06/04/2019 Vitamin D deficiency 01/28/2019 Insomnia 12/28/2017 Myopia with astigmatism, bilateral 08/17/2017 Tear film insufficiency, bilateral 08/17/2017 Anemia 12/05/2015 Overview (06/20/2024): Dr Whitehead. 09/25 normal [place]/EGD. Iron infusions. Periodic CBC to be checked by PCP Weak urinary stream 02/27/2014 Fibromyalgia 03/21/2013 Chronic daily headache 10/26/2010 Overview (01/31/2024): Dr Pierre; Dr Angeles Dermoid 10/09/2010 Overview (01/31/2024): Stable in size from 2009 to 2014 Major depressive disorder 07/23/2010 Overview (01/31/2024): Abilify caused side effects. Psychiatry prescribing, [address] Migraines 07/23/2010 Anxiety 07/13/2008 Chronic back pain 07/13/2008 Overview (01/31/2024): Surgery- Dr. Barillas 07/25/09; justin [facility] Encounters Date Type Department Care Team Description 08/14/2024 1:00 PM EDT Clinical Support Obstetrics & Gynecology [address] [phone] Surveillance of contraceptive injection (Primary Dx) 2024 3:45 PM EDT Consult Obstetrics & [address] [phone] Mirta Sampson CNM Menopausal vasomotor syndrome (Primary Dx); Irregular menstrual cycle; Superficial venous thrombosis of right upper extremity 06/26/2024 3:00 PM EDT Office Visit [facility] Hematology Oncology [address] [place] [phone] Heath Whitehead MD History of thrombosis of axillary vein (Primary Dx); Protein S deficiency (CMS/HCC V24) 06/22/2024 2:30 PM EDT Office Visit Obstetrics & Gynecology [address] [phone] Mirta Sampson CNM Encounter for well woman exam with routine gynecological exam (Primary Dx); Screening breast examination; Screening for malignant neoplasm of cervix; Vagina itching; Screen for STD (sexually transmitted disease); Breast fibroadenoma, left 05/18/2024 11:00 AM EDT Office Visit [facility] Hematology Oncology [address] [place] [phone] Heath Whitehead MD Protein S deficiency (CMS/HCC V24) (Primary Dx); Coagulopathy (CMS/HCC V24); Anemia, unspecified type from Last 3 Months Immunizations Name Administration Dates Next Due HPV, Quadrivalent 04/06/2006,02/05/2006 Influenza Quadravalent, MDCK , 0.5ml, with preservative (Flucelvax) 6mo and older 11/17/2017,01/13/2017 Influenza trivalent, 0.5mL, preservative free (Fluarix; FluLaval; Fluzone) ages 6mo and older (Afluria) 3 years and older 03/17/2024,03/18/2016,02/07/2014,2012,01/12/2011 Influenza trivalent, with preservative (Fluzone; Afluria) 6mo and older 11/17/2017,03/18/2016,02/07/2014,2012,01/12/2011 Moderna SARS-CoV-2 COVID-19, mRNA, LNP-S, preservative free 01/06/2021,07/11/2020,06/13/2020 Tdap Tetanus diptheria acell ular pertussis (Boostrix; Adacel) 7yo and older 01/13/2017 Surgical History Surgery Date Site/Laterality Comments FLEXIBLE SIGMOIDOSCOPY 07/23/2008 PROCEDURE: [place] SIGMOIDOSCOPY FLX DX W/COLLJ SPEC BR/WA IF PFRMD; COMMENT: Normal to 70 cm ESOPHAGOGASTRODUODENOSCOPY 07/23/2008 PROCEDURE: NV EGD TRANSORAL BIOPSY SINGLE/MULTIPLE; COMMENT: Visually normal, duodenal bx: Normal. BACK SURGERY 07/25/2009 PROCEDURE: HISTORICAL BACK SURGERY; COMMENT: Dr. Barillas COLONOSCOPY 09/05/2020 PROCEDURE: HISTORICAL COLONOSCOPY; COMMENT: negative ESOPHAGOGASTRODUODENOSCOPY 09/05/2020 PROCEDURE: NV EGD TRANSORAL BIOPSY SINGLE/MULTIPLE; COMMENT: negative, biopsy pending OTHER SURGICAL HISTORY 10/15/2022 Left PROCEDURE: NV BX BREAST W/DEVICE 1ST LESION STEREOTACTIC GUID Medical History Medical History Date Comments Other abnormal Papanicolaou smear of cervix and cervical HPV(795.09) DX:Other abnormal Papa nicolaou smear of cervix and cervical HPV(795.09); COMMENT: 06/2004 NGA I Viral illness DX:Viral illness Dysphagia DX:Dysphagia GERD (gastroesophageal reflux disease) DX:GERD (gastroesophageal reflux disease) Esophageal dysmotility DX:Esopha geal dysmotility Anemia 12/05/2015 DX:Anemia; COMME NT: Dr Whitehead. 09/25 normal [place]/EGD. Iron infusions. Periodic CBC to be checked by PCP Attention deficit 06/04/2019 DX:Attention d eficit Chronic back pain 07/13/2008 DX:Chronic nura k pain; COMMENT: Surgery- Dr. Barillas 07/25/09; Dr Kruse, then [facility] Chronic cough 08/03/2020 DX:Chronic cough ; COMMENT: Dr Avila Chronic daily headache 10/26/2010 DX:Chroni c daily headache; COMMENT: Dr Pierre; Dr Angeles Dermoid 10/09/2010 DX:Dermoid; COMM ENT: Stable in size from 2009 to 2014 Environmental allergies 11/30/2019 DX:Envir onmental allergies Fibromyalgia 03/21/2013 DX:Fibromyalgia Hemorrhoids, external 02/27/2021 DX:Hemorrh oids, external Insomnia 12/28/2017 DX:Insomnia Memory problem 09/12/2020 DX:Memory proble m Migraines 07/23/2010 DX:Migraines Myopia with astigmatism, bilateral 08/17/2017 DX:Myopia with astigmatism, bilateral Reactive airway disease with out complication 11/30/2019 DX:Reactive airway disease w ithout complication Tear film insufficiency, bilateral 08/17/2017 DX:Tear film insufficiency, bilateral Vitamin D deficiency 01/28/2019 DX:Vitamin D deficiency Weak urinary stream 02/27/2014 DX:Weak urin sukhdev stream Vomiting 07/17/2009 DX:Vomiting; COM MENT: 05/15- egd nad.seeing dr man,seen by Dr beasley here. Thought to have IBS with possible rectal dysf(x) and plan si for rectal manometry per Dr Man Anxiety 07/13/2008 DX:Anxiety Major depressive disorder 07/23/2010 DX:Darrell or depressive disorder; COMMENT: Abilify caused side effects. Psychiatry prescribing, [facility] Vomiting 07/17/2009 DX:Vomiting; COM MENT: 05/15- egd nad.seeing dr man,seen by Dr beasley here. Thought to have IBS with possible rectal dysf(x) and plan si for rectal manometry per Dr Man Reactive airway disease with out complication 11/30/2019 Superficial thrombophlebitis 202 5 Family History Medical History Relation Name Comments Breast cancer Aunt m maternal aunt >50 Hypertension Mother Brain cancer Sister sister brain ca , cleared Blindness Neg Hx Cataracts Neg Hx Colon cancer Neg Hx Glaucoma Neg Hx Macular degeneration Neg Hx Strabismus Neg Hx Relation Name Status Comments Aunt m Alive Brother Alive 3,healthy 1 bro ther in [place] Father Alive healthy; llives in [place] Mother Alive Sister Alive 1,healthy, live s [place] Social History Tobacco Use Types Packs/Day Years Used Date Smoking Tobacco: Never Smokeless Tobacco: Never Alcohol Use Standard Drinks/Week Comments Yes 0 (1 standard drink = 0.6 oz pur e alcohol) Comments No Sex and Gender Information Value Date Recorded Sex Assigned at Not on file Legal Sex Female 9:32 AM EST Gender Identity Not on file Sexual Orientation Not on file Occupation Industry Job Start Date Job End Date disabled Not on file Not on file Not on file Obstetrics History Para Term AB IAB SAB Ectopic Multiple Livin g Live Births 0 0 0 0 0 0 0 0 0 0 0 Last Filed Vital Signs Vital Sign Reading Time Taken Comments Blood Pressure 101/67 08/14/2024 1:43 PM EDT Pulse 107 08/14/2024 1:43 PM EDT Temperature 36.7 ??C (98.1 ??F) 06/26/2024 3:11 PM ED T Respiratory Rate - - Oxygen Saturation 100% 06/26/2024 3:11 PM EDT Inhaled Oxygen Concentration - - Weight 55.8 kg (123 lb) 08/14/2024 1:43 PM EDT Height 167.6 cm (5' 6 ) 08/14/2024 1:43 PM EDT Body Mass Index 19.85 08/14/2024 1:43 PM EDT Plan of Treatment Upcoming Encounters Date Type Department Care Team (Late st Contact Info) Description 09/05/2024 2:45 PM EDT Consult General Surgery - [facility] [address] [phone] María Lowe MD 175 [facility] [place] [address] [place] [address] 10/18/2024 3:00 PM EDT Appointment Radiology Department [address] [phone] 10/18/2024 3:20 PM EDT Appointment Radiology Department [address] [phone] 11/08/2024 1:00 PM EDT Clinical Support Obstetrics & Gynecology - [address] [phone] Health Maintenance Due Date Last Done Comments Hepatitis B Vaccines (1 of 3 - 19+ 3-dose series) 08/08/1998 Pneumococcal Vaccine: Pediatrics (0 to 5 Years) and At-Risk Patients (6 to 64 Years) (1 of 2 - PCV) 08/08/1998 HPV Vaccines (3 - Risk 3-dose series) 08/06/2006 04/06/2006, 02/05/2006 Colorectal Cancer Screening: Colonoscopy 02/14/2022 Depression Screening 02/14/2022 Social Influencers of Health Screening 02/14/2022 COVID-19 Vaccine ( season) 2023 02/25/2021, 01/06/2021, 07/11/2020, Additional history exists Breast Cancer Screening 10/13/2025 10/14/19 24, 10/14/2023, 10/15/2022, Additional history exists DTaP,Tdap,and Td Vaccines (2 - Td or Tdap) 01/13/2027 01/13/2017 Cervical Cancer Screening: HPV 06/22/2029 06/22/2024, 08/23/2020 Influenza Vaccine Completed 03/17/2024, , 11/17/2017, Additional history exists HIV Screening Completed 06/22/2024, 08/23/2020 Hepatitis C Screening Completed 06/22/2024, 021 HIB Vaccines Aged Out No longer eligi ble based on patient's age to complete this topic Hepatitis A Vaccines Aged Out No long er eligible based on patient's age to complete this topic IPV Vaccines Aged Out No longer eligi ble based on patient's age to complete this topic MMR Vaccines Aged Out No longer eligi ble based on patient's age to complete this topic Meningococcal ACWY Vaccine Aged Out N o longer eligible based on patient's age to complete this topic Meningococcal B Vaccine Aged Out No l onger eligible based on patient's age to complete this topic RSV Immunization Patients Under 20 months Aged Out No longer eligible based on patient's age to complete this topic Varicella Vaccines Aged Out No longer eligible based on patient's age to complete this topic Procedures Procedure Name Priority Date/Time Associated Diagnosis Comments POC , URINE DIAGNOSTIC Routine 2024 4:06 PM EDT Irregular menstrual cycle CBC WITH AUTO DIFFERENTIAL Routine 06/26/2024 3:29 PM EDT Coagulopathy ([facility] V24) Anemia, unspecified type PROTEIN S ACTIVITY Routine 06/26/2024 3: 29 PM EDT Coagulopathy (CMS/HCC V24) Anemia, unspecified type HAPTOGLOBIN Routine 06/26/2024 3:29 PM EDT Coagulopathy ([facility]/HCC V24) Anemia, unspecified type RETICULOCYTE COUNT Routine 06/26/2024 3: 29 PM EDT Coagulopathy (CMS/HCC V24) Anemia, unspecified type VITAMIN B12 AND FOLATE Routine 3:29 PM EDT Coagulopathy (CMS/HCC V24) Anemia, unspecified type IRON AND TIBC Routine 06/26/2024 3:29 PM EDT Coagulopathy (CMS/HCC V24) Anemia, unspecified type FERRITIN Routine 06/26/2024 3:29 PM EDT Coagulopathy (CMS/HCC V24) Anemia, unspecified type CBC AND DIFFERENTIAL Routine 06/26/2024 3:29 PM EDT Coagulopathy (CMS/HCC V24) Anemia, unspecified type HEPATITIS C ANTIBODY Routine 06/22/2024 3:46 PM EDT Encounter for well woman exam with routine gynecological exam Screen for STD (sexually transmitted disease) HIV 1, 2 ANTIBODY, P24 ANTIGEN WITH REFLEX TO DIFFERENTIATION Routine 06/22/2024 3:46 PM EDT Encounter for well woman exam with routine gynecological exam Screen for STD (sexually transmitted disease) TREPONEMA PALLIDUM ANTIBODY WITH REFLEX TO RPR AND PARTICLE AGGLUTINATION Routine 06/22/2024 3:46 PM EDT Encounter for well woman exam with routine gynecological exam Screen for STD (sexually transmitted disease) PAP SMEAR Routine 06/22/2024 3:01 PM EDT Encounter for well woman exam with routine gynecological exam Screening for malignant neoplasm of cervix HPV WITH REFLEX GENOTYPE Routine 06/22/2024 3:01 PM EDT Encounter for well woman exam with routine gynecological exam Screening for malignant neoplasm of cervix TRICHOMONAS VAGINALIS ANTIGEN Routine 06/22/2024 3:01 PM EDT Encounter for well woman exam with routine gynecological exam Vagina itching Screen for STD (sexually transmitted disease) CHLAMYDIA TRACHOMATIS AND NEISSERIA GONORRHOEAE PCR Routine 06/22/2024 3:01 PM EDT Encounter for well woman exam with routine gynecological exam Screen for STD (sexually transmitted disease) WET PREP, GENITAL Routine 06/22/2024 3:0 1 PM EDT Encounter for well woman exam with routine gynecological exam Vagina itching Screen for STD (sexually transmitted disease) DIAGNOSTIC MAMMOGRAPHY INCLUDING CAD BILATERAL Routine 10/14/2023 3:38 PM EDT Encounter for screening mammogram for malignant neoplasm of breast from Last 3 Months or Most Recently Relevant to Health Maintenance Results * POC , urine manually resulted (2024 4:06 PM EDT) HCG, Ur POC Negative Negative POC hCG Int QC Pass? Yes Yes Urine Urine specimen obtained by clean catch procedure / Unknown 2024 4:06 PM EDT Mirta Sampson CNM POINT OF CARE TEST ENTER/EDIT ORDERABLES Final Result * (ABNORMAL) Vitamin B12 and folate (06/26/2024 3:29 PM EDT) [facility] Vitamin B-12 >2,000(H) 250 - 900 pcg/mL LAB CHEMISTRY METHOD 06/26/2024 7:40 PM EDT [facility] Folate 9.1 2.8 - 17.0 ng/ml LAB CHEMISTRY METHOD 06/26/2024 7:40 PM EDT [facility] Blood Venous blood specimen / Unknown Venipuncture / Unknown 06/26/2024 3:29 PM EDT 06/26/2024 4:44 PM EDT us Heath Whitehead MD LAB BLOOD ORDERABLES Final R esult [facility] [address] [place] [address], [place] [phone] * (ABNORMAL) CBC auto differential (06/26/2024 3:29 PM EDT) [facility] WBC 3.6(L) 4.8 - 10.8 K/mcL LAB HEMETOLOGY METHOD 06/26/2024 5:08 PM EDT [facility] RBC 3.10(L) 3.80 - 4.80 M/mcL LAB HEMETOLOGY METHOD 06/26/2024 5:08 PM [facility] Hemoglobin 9.0(L) 11.5 - 16.0 g/dL LAB HEMETOLOGY METHOD 06/26/2024 5:08 PM EDT [facility] Hematocrit 29.6(L) 35.0 - 47.0 % LAB HEMETOLOGY METHOD 06/26/2024 5:08 PM EDT [facility] MCV 95.5 79.0 - 98.0 FL LAB HEMETOLOGY METHOD 06/26/2024 5:08 PM [facility] MCH 29.0 27.0 - 32.0 pcg LAB HEMETOLOGY [facility] MCHC 30.4(L) 32.0 - 37.0 g/dL LAB HEMETOLOGY METHOD 06/26/2024 5:08 PM [facility] RDW 13.5 11.0 - 15.0 % LAB HEMETOLOGY METHOD 06/26/2024 5:08 PM [facility] Platelets 149 130 - 400 K/mcL LAB HEMETOLOGY METHOD 06/26/2024 5:08 PM [facility] MPV 13.1(H) 7.0 - 11.0 FL LAB HEMETOLOGY METHOD 06/26/2024 5:08 PM [facility] NRBC 0.0 <1.0 % LAB HEMETOLOGY METHOD 06/26/2024 5:08 PM [facility] NRBC Absolute 0.00 <0.10 K/mcL LAB HEMETOLOGY METHOD 06/26/2024 5:08 PM [facility] Neutrophils Relative 46.6 % LAB HEMETOLOGY METHOD 06/26/2024 5:08 PM [facility] Lymphocytes Relative 42.7 % LAB HEMETOLOGY METHOD 06/26/2024 5:08 PM [facility] Monocytes Relative 8.7 % LAB HEMETOLOGY METHOD 06/26/2024 5:08 PM [facility] Eosinophils Relative 1.1 % LAB HEMETOLOGY METHOD 06/26/2024 5:08 PM [facility] Basophils Relative 0.6 % LAB HEMETOLOGY METHOD 06/26/2024 5:08 PM [facility] Immature Granulocytes Relative 0.3 % LAB HEMETOLOGY METHOD 06/26/2024 5:08 PM [facility] Neutrophils Absolute 1.67 1.50 - 7.00 K/mcL LAB HEMETOLOGY METHOD 06/26/2024 5:08 PM EDT [facility] Lymphocytes Absolute 1.53 1.00 - 5.00 K/mcL LAB HEMETOLOGY METHOD 06/26/2024 5:08 PM EDT [facility] Monocytes Absolute 0.31 0.20 - 1.00 K/mcL LAB HEMETOLOGY METHOD 06/26/2024 5:08 PM EDT [facility] Eosinophils Absolute 0.04 0.00 - 0.50 K/[facility] LAB HEMETOLOGY METHOD 06/26/2024 5:08 PM EDT [facility] Basophils Absolute 0.02 0.00 - 0.20 K/[facility] LAB HEMETOLOGY METHOD 06/26/2024 5:08 PM EDT [facility] Immature Granulocytes Absolute 0.01 0.00 - 0.03 K/mcL LAB HEMETOLOGY METHOD 06/26/2024 5:08 PM EDT [facility] Blood Venous blood specimen / Unknown Venipuncture / Unknown 06/26/2024 3:29 PM EDT 06/26/2024 4:45 PM EDT us Heath Whitehead MD LAB BLOOD ORDERABLES Final R esult [facility] [address] [place] [address], * (ABNORMAL) Iron and TIBC (06/26/2024 3:29 PM EDT) Iron 47 40 - 150 mcg/dL LAB CHEMISTRY METHOD 06/26/2024 7:14 PM EDT [facility] TIBC 373 250 - 450 mcg/dL LAB CHEMISTRY METHOD 06/26/2024 7:14 PM EDT [facility] Iron Saturation 13(L) 15 - 50 % LAB CHEMISTRY METHOD 06/26/2024 7:14 PM EDT [facility] Blood Venous blood specimen / Unknown Venipuncture / Unknown 06/26/2024 3:29 PM EDT 06/26/2024 4:44 PM EDT Heath Whitehead MD LAB BLOOD ORDERABLES Final R esult Performing Organization Address [facility]/ZIP Co de Phone Number [facility] [address] [place] [address], [place] [phone] * (ABNORMAL) Protein S activity (06/26/2024 3:29 PM EDT) [facility] Protein S Activity 43(L) 65 - 140 % 2024 12:30 PM EDT [facility] Comment: Heparin levels up to 1 IU/mL do not affect test results; higher levels may cause false elevation. ??Thrombin inhibitors and direct oral anticoagulants may lead to over-estimation of proein S level by this assay. Note that measurement of protein S or free protein S antigen levels would be less affected by medication. Test performed at [facility], [address] [place], [place] ??[address] ? [phone] Minda Marti MD, PhD - Community Health Advisor Blood Venous blood specimen / Unknown Venipuncture / Unknown 06/26/2024 3:29 PM EDT 06/26/2024 4:44 PM EDT Heath Whitehead MD LAB BLOOD ORDERABLES Final R esult Performing Organization Address City/[facility]/ZIP Co de Phone Number [facility] [address] [place] [address] * (ABNORMAL) Reticulocyte count (06/26/2024 3:29 PM EDT) Retic Ct Abs 0.030 0.030 - 0.090 M/mcL LAB HEMETOLOGY METHOD 06/26/2024 5:08 PM EDT [facility] Retic Ct Pct 1.1 0.7 - 1.7 % LAB HEMETOLOGY METHOD 06/26/2024 5:08 PM EDT [facility] Immature Retic Fract 17.2(H) 2.3 - 15.9 % LAB HEMETOLOGY METHOD 06/26/2024 5:08 PM EDT [facility] Reticulocyte Hemoglobin 29.7 >29.0 pcg LAB HEMETOLOGY METHOD 06/26/2024 5:08 PM EDT [facility] Blood Venous blood specimen / Unknown Venipuncture / Unknown 06/26/2024 3:29 PM EDT 06/26/2024 4:45 PM EDT us Heath Whitehead MD LAB BLOOD ORDERABLES Final R esult Performing Organization Address City/[facility]/ZIP Co de Phone Number [facility] [address] [place] [address], [place] [phone] * Haptoglobin (06/26/2024 3:29 PM EDT) Haptoglobin 70 16 - 200 mg/dL LAB CHEMISTRY METHOD 06/26/2024 7:14 PM EDT [facility] Blood Venous blood specimen / Unknown Venipuncture / Unknown 06/26/2024 3:29 PM EDT 06/26/2024 4:44 PM EDT us Heath Whitehead MD LAB BLOOD ORDERABLES Final R esult [facility] [address] [place] [address], [place] [phone] * (ABNORMAL) Ferritin (06/26/2024 3:29 PM EDT) Ferritin 7(L) 8 - 252 ng/mL LAB CHEMISTRY METHOD 06/26/2024 7:44 PM EDT [facility] Blood Venous blood specimen / Unknown Venipuncture / Unknown 06/26/2024 3:29 PM EDT 06/26/2024 4:44 PM EDT Heath Whitehead MD LAB BLOOD ORDERABLES Final R esult Performing Organization Address City/[facility]/ZIP Co de Phone Number [facility] [address] [place] [address], [place] [phone] * Hepatitis C antibody (06/22/2024 3:46 PM EDT) Pathologist [facility] Hepatitis C Antibody Negative Negative LAB CHEMISTRY METHOD 06/22/2024 5:39 PM EDT [facility] Blood Venous blood specimen / Unknown Venipuncture / Unknown 06/22/2024 3:46 PM EDT 06/22/2024 4:11 PM EDT Mirta Sampson CNM LAB BLOOD ORDERABLES Final Re sult Performing Organization Address [facility]/ZIP Co de Phone Number [facility] [address] [place] [address], [place] [phone] * HIV 1,2 antibody, p24 antigen with reflex to differentiation (06/22/2024 3:46 PM EDT) [facility] HIV Combo AB/AG Negative Negative LAB CHEMISTRY METHOD 06/22/2024 5:40 PM EDT [facility] Blood Venous blood specimen / Unknown Venipuncture / Unknown 06/22/2024 3:46 PM EDT 06/22/2024 4:11 PM EDT Narrative [facility] - 06/22/2024 5:40 PM EDT This assay is a 4th generation assay allowing for earlier detection of HIV infection by detecting the presence of the HIV-1 p24 antigen as well as the traditional antibodies to HIV type 1 (including group O) and type 2. ??Use of a 4th generation assay is the current CDC recommendation for HIV screening. Mirta ROJAS LAB BLOOD ORDERABLES Final Re sult Performing Organization Address [facility]/ZIP Co de Phone Number [facility] [address] [place] [address], [place] [phone] * Treponema pallidum antibody with reflex to RPR and particle agglutination (06/22/2024 3:46 PM EDT) T. Pallidum Antibodies Negative Negative LAB CHEMISTRY METHOD 06/22/2024 7:06 PM EDT [facility] Blood Venous blood specimen / Unknown Venipuncture / Unknown 06/22/2024 3:46 PM EDT 06/22/2024 4:11 PM EDT Mirta Sampson [facility] BLOOD ORDERABLES Final Re sult Performing Organization Address [facility] Co de Phone Number [facility] [address] [place] [address], [place] [phone] * HPV with reflex genotype (06/22/2024 3:01 PM EDT) HPV Negative Negative LAB MICROBIOLOGY METHOD 06/23/2024 1:21 PM EDT [facility] Brushing/Spatula Cervix uteri structure / Unknown 06/22/2024 3:01 PM EDT 06/23/2024 4:55 AM EDT Mirta Sampson [facility] MOLECULAR DIAGNOSTICS ORD ERABLES Final Result Performing Organization Address [facility]/ZIP Co de Phone Number [facility] [address] [place] [address], [place] [phone] * Trichomonas vaginalis antigen (06/22/2024 3:01 PM EDT) Trichomonas vaginalis Negative Negative 06/22/2024 5:28 PM EDT [facility] Swab Vaginal structure / Unknown Non-blood Collection / Unknown 06/22/2024 3:01 PM EDT 06/22/2024 4:36 PM EDT [facility] - GENERAL OR DERABLES Final Result Performing Organization Address [facility]/ZIP Co de Phone Number [facility] [address] [place] [address], [place] [phone] * Chlamydia trachomatis and Neisseria gonorrhoeae molecular study (06/22/2024 3:01 PM EDT) Neisseria gonorrhoeae PCR Negative Negative LAB MOLECULAR DIAGNOSTICS METHOD 06/23/2024 10:04 AM EDT [facility] Chlamydia trachomatis PCR Negative Negative LAB MOLECULAR DIAGNOSTICS METHOD 06/23/2024 10:04 AM EDT [facility] Swab Cervix uteri structure / Unknown Non-blood Collection / Unknown 06/22/2024 3:01 PM EDT 06/22/2024 4:36 PM EDT [facility] MICROBIOLOGY - GENERAL OR DERABLES Final Result Performing Organization Address City/[facility]/ZIP Co de Phone Number [facility] [address] [place] [address], [place] [phone] * (ABNORMAL) Wet prep, genital (06/22/2024 3:01 PM EDT) Clue Cells, Wet Prep Positive(A) Negative 06/22/2024 5:16 PM EDT [facility] Yeast, Wet Prep Positive(A) Negative 06/22/2024 5:16 PM EDT [facility] Trichomonas, Wet Prep Indeterminate Negative 06/22/2024 5:16 PM EDT [facility] Comment:Refer to Trichomonas antigen. Swab Vaginal structure / Unknown Non-blood Collection / Unknown 06/22/2024 3:01 PM EDT 06/22/2024 4:36 PM EDT Mirta Sampson [facility] MICROBIOLOGY - GENERAL OR DERABLES Final Result [facility] [address] [place] [address], * Pap smear (06/22/2024 3:01 PM EDT) Interpretation Negative for intraepithelial lesion or malignancy 06/26/2024 2:15 PM EDT [facility] General Categorization Negative 06/26/2024 2:15 PM EDT [facility] Other Findings Fungal organisms morphologically consistent with Carolyn spp 06/26/2024 2:15 PM EDT [facility] LMP 04/10/2024 06/26/2024 2:15 PM EDT [facility] Specimen Adequacy Satisfactory for evaluation, endocervical/alba sformation zone component absent 06/26/2024 2:15 PM EDT [facility] Pap Methodology Liquid Based Pap Test 06/26/2024 2:15 PM EDT [facility] Disclaimer The Pap test is a screening test which carries an inherent false negative rate. These test results should be correlated with the patient's clinical findings and history. This Pap test was processed using an automated screening system. Technical cytopathology services provided by [facility], at [address] [place] [address] (CLIA # [id number]/Wilver Sorenson MD, Community Health Advisor.) 06/26/2024 2:15 PM EDT [facility] Console Pap Interpretation Reported 06/26/2024 2:15 PM T [facility] Brushing/Spatula Cervix uteri structure / Unknown 06/22/2024 3:01 PM EDT 06/23/2024 4:55 AM EDT Mirta Sampson [facility] CYTOLOGY ORDERABLES Final Result [facility] [address] [place] [address], * DIAGNOSTIC MAMMOGRAPHY INCLUDING CAD BILATERAL (10/14/2023 3:38 PM EDT) Anatomical Region Laterality Modality Mammography 09/18/2022 4:28 PM EDT Narrative 10/14/2023 4:22 PM EDT This is a summary report. The complete report is available in the patient's medical record. If you cannot access the medical record, please contact the sending organization for a detailed fax or copy. History: Patient is status post left breast ultrasound-guided needle core biopsy on October 15, 2022. ??The addended pathology report describes fibroepithelial proliferation, with differential diagnosis including fibroadenoma, fibroadenomatoid hyperplasia and a benign phyllodes tumor. ??A 6-month left breast ultrasound was recommended. ??Patient returns to the Radiology service today. Studies: 1. ??Bilateral diagnostic mammography with tomosynthesis and CAD 2. ??Targeted ultrasound of the left breast Technique: Bilateral full-field digital diagnostic mammography is obtained and read in conjunction with computer aided detection. ??Tomosynthesis as well as 2D C- View imaging were obtained. Comparison: Comparison made to multiple priors, most recent postprocedure left mammogram on October 15, 2022, and most remote September 10, 2020. The breast tissue is extremely dense, which lowers the sensitivity of mammography. Right breast: No suspicious masses, suspicious calcifications or other abnormalities are seen. Left breast: The mass associated with the tissue marker measures about 0.7 cm and is located in the upper breast at 5.5 cm, best seen on the MLO view ; this is unchanged from October 2022. ??No new masses, suspicious calcifications or other abnormalities are seen. Targeted ultrasound of the left breast was performed at the location of the previously biopsied sonographic finding. ??The survey shows a 0.7 x 0.5 x 0.6 cm hypoechoic solid mass at 2 o'clock position at 5 cm from the nipple. ??Prior measurements in October 2022 were 0.8 x 0.4 x 0.7 cm. ??No internal vascularity demonstrated with color or power Doppler evaluation. IMPRESSION: Impression: Right breast: Negative, no specific mammographic evidence of malignancy. ??Normal interval follow-up is recommended in 12 months. Left breast: The size and imaging appearance of the previously biopsied mass at 2 o'clock position is unchanged from October 2022. ??Benign, no specific evidence of malignancy. ??However, given the pathology results, a 12-month follow-up diagnostic mammogram and left breast ultrasound is recommended. ??If everything remains stable at that point, patient may return to routine screening mammogram. BI-RADS: Category 2: Benign Findings and recommendations discussed with the patient at completion of the studies. Procedure Note Maribell Bell MD - 01/31/2024 This is a summary report. The complete report is available in thepatient's medical record. If you cannot access the medical record, pleasecontact the sending organization for a detailed fax or copy. History: Patient is status post left breast ultrasound-guided needle corebiopsy on October 15, 2022. The addended pathology report describesfibroepithelial proliferation, with differential diagnosis includingfibroadenoma, fibroadenomatoid hyperplasia and a benign phyllodes tumor.A 6-month left breast ultrasound was recommended. Patient returns to theRadiology service today. Studies: 1. Bilateral diagnostic mammography with tomosynthesis and CAD 2. Targeted ultrasound of the left breast Technique: Bilateral full-field digital diagnostic mammography is obtainedand read in conjunction with computer aided detection. Tomosynthesis aswell as 2D C-View imaging were obtained. Comparison: Comparison made to multiple priors, most recent postprocedureleft mammogram on October 15, 2022, and most remote September 10, 2020. The breast tissue is extremely dense, which lowers the sensitivity ofmammography. Right breast: No suspicious masses, suspicious calcifications or otherabnormalities are seen. Left breast: The mass associated with the tissue marker measures about 0.7cm and is located in the upper breast at 5.5 cm, best seen on the MLO view15/53; this is unchanged from October 2022. No new masses, suspiciouscalcifications or other abnormalities are seen. Targeted ultrasound of the left breast was performed at the location ofthe previously biopsied sonographic finding. The survey shows a 0.7 x 0.5x 0.6 cm hypoechoic solid mass at 2 o'clock position at 5 cm from thenipple. Prior measurements in October 2022 were 0.8 x 0.4 x 0.7 cm. Nointernal vascularity demonstrated with color or power Dopplerevaluation. IMPRESSION: Impression: Right breast: Negative, no specific mammographic evidence of malignancy.Normal interval follow-up is recommended in 12 months. Left breast: The size and imaging appearance of the previously biopsiedmass at 2 o'clock position is unchanged from October 2022. Benign, nospecific evidence of malignancy. However, given the pathology results, [id number] follow-up diagnostic mammogram and left breast ultrasound isrecommended. If everything remains stable at that point, patient mayreturn to routine screening mammogram. BI-RADS: Category 2: Benign Findings and recommendations discussed with the patient at completion ofthe studies. Jazz Amador CN IMG BI PROCEDURES F inal Result from Last 3 Months or Most Recently Relevant to Health Maintenance Insurance [employer] [address] [place] [address] Care Teams Eyeletter Relationship Specialty Start Date End Date Bryan Estrella MD [address] [place] [address] PCP - General Internal Medicine 01/20/24
== END 2024-08-18 14:46 | disposition home or self-care (01) ==
PROVIDERS: PCP Internal Medicine; Visit Provider Nurse Practitioner Family
DX: M25.60 Stiffness of unspecified joint, not elsewhere classified (principal); R20.2 Paresthesia of skin; M79.601 Pain in right arm; M79.602 Pain in left arm; R25.2 Cramp and spasm; D64.9 Anemia, unspecified; F06.70 Mild neurocognitive disorder due to known physiological condition without behavioral disturbance; G43.109 Migraine with aura, not intractable, without status migrainosus; G47.10 Hypersomnia, unspecified
CPT/HCPCS: 99214; G2211

== ENCOUNTER 2024-10-04 08:17 | Outpatient (REF) | payer OTHER, SELFPAY ==
--- OUTSIDE RECORDS SUMMARY | 2024-10-04 08:22 | XMS_ITS | Clinical Summary ---
Author Organization [facility] Address [address] [place] [address] Care Team Providers Care Enrollment Processor Name Role Phone Bryan Estrella MD Primary Care Provider [phone] Allergies Active Allergy Reactions Criticality Noted Date Comments Dust 07/31/2020 Penicillins 07/31/2020 Pollen Extract 07/31/2020 Sulfa Antibiotics 07/31/2020 Medications Medication Sig Dispensed Refills Start Date End Date Status omeprazole (PriLOSEC) 20 MG capsule Take 1 capsule (20 mg total) by mouth daily. 0 Active Azelastine HCl 137 MCG/SPRAY SOLN spray or apply inside Nose. 0 Active fluticasone (FLOVENT HFA) 110 MCG/ACT inhaler Inhale 1 puff into the lungs 2 (two) times a day. 0 Active magnesium oxide 400 (241.3 Mg) MG TABS tablet Take 1 tablet (400 mg total) by mouth 2 (two) times a day. 0 Active carisoprodol (SOMA) 350 MG tablet Take 1 tablet (350 mg total) by mouth every night at bedtime. 0 11/17/2017 Active vitamin D3 (VITAMIN D3) 25 MCG (1000 UT) tablet TAKE ONE TABLET BY MOUTH EVERY DAY 0 07/17/2020 Active clonazePAM (KlonoPIN) 0.5 MG tablet Take 1 tablet (0.5 mg total) by mouth 2 (two) times a day. 0 07/29/2020 Active Diclofenac Sodium 1 % GEL Apply small amount (2g) to affected area on skin twice daily as needed for pain. Do not take with ibuprofen 0 06/22/2019 Active fluticasone (FLONASE) 50 MCG/ACT nasal spray spray/apply 2 sprays in each nostril daily. 0 01/13/2017 Active oxyCODONE (ROXICODONE) 30 MG immediate release tablet TAKE ONE TABLET BY MOUTH THREE TIMES A DAY NEEDED FOR PAIN 0 07/18/2020 Active OxyCONTIN 20 MG T12A controlled release tablet Take 1 tablet (20 mg total) by mouth 2 (two) times a day. 0 07/15/2020 Active pregabalin (LYRICA) capsule 150 mg Take 1 capsule (150 mg total) by mouth 2 (two) times a day. 0 07/18/2020 Active tretinoin (RETIN-A) 0.05 % cream APPLY A PEA SIZED AMOUNT TOPICALLY ONCE DAILY AT BEDTIME 0 06/18/2020 Active triamcinolone (KENALOG) 0.1 % cream Apply to affected area BID x 2 weeks 0 09/20/2019 Active lidocaine (LIDODERM) 5 % APPLY ONE PATCH EXTERNALLY TO AREA OF MOST PAIN EVERY DAY FOR 12 HOURS ON AND 12 HOURS OFF 0 06/18/2020 Active albuterol 108 (90 Base) MCG/ACT inhaler Inhale 2 puffs into the lungs every 6 (six) hours as needed for wheezing. 0 Active Dextran 70-Hypromellose (Artificial Tears) 0.1-0.3 % SOLN Apply to eye. 0 Active apixaban (ELIQUIS) 5 MG TABS tablet Take by mouth every 12 (twelve) hours. 0 Active furosemide (LASIX) 20 MG tablet Take 1 tablet (20 mg total) by mouth 2 (two) times a day. 0 Active methylphenidate (RITALIN) 5 MG tablet Take 1 tablet (5 mg total) by mouth 2 (two) times a day. 0 Active PARoxetine (PAXIL) 20 MG tablet Take 1 tablet (20 mg total) by mouth every morning. 0 Active QUEtiapine (SEROquel) 25 MG tablet Take 1 tablet (25 mg total) by mouth every night at bedtime. 0 Active apixaban (ELIQUIS) 2.5 MG TABS tablet Take 1 tablet (2.5 mg total) by mouth every 12 (twelve) hours. 60 tablet 0 03/17/2022 Active Active Problems No known active problems Family History Medical History Relation Name Comments Hypertension Mother Cancer Sister Brain Cancer Relation Name Status Comments Mother Sister Social History Tobacco Use Types Packs/Day Years Used Date Smoking Tobacco: Never Smokeless Tobacco: Never Alcohol Use Standard Drinks/Week Comments Yes 0 (1 standard drink = 0.6 oz pur e alcohol) occassional Sex and Gender Information Value Date Recorded Sex Assigned at Not on file Gender Identity Not on file Sexual Orientation Not on file Job Start Date Occupation Industry Not on file Not on file Not on file Last Filed Vital Signs Vital Sign Reading Time Taken Comments Blood Pressure 120/69 03/17/2022 9:07 AM EST Pulse 92 03/17/2022 9:07 AM EST Temperature 36.9 C (98.4 F) 03/17/2022 9:07 AM EST Respiratory Rate - - Oxygen Saturation 96% 03/17/2022 9:07 AM EST Inhaled Oxygen Concentration - - Weight 59.4 kg (131 lb) 07/31/2020 1:48 PM EDT Height 167.6 cm (5' 6 ) 01/20/2021 3:16 PM EST Body Mass Index 21.14 07/31/2020 1:48 PM EDT Plan of Treatment Health Maintenance Due Date Last Done Comments Hepatitis B Vaccines (1 of 3 - 3-dose series) 1979 Hepatitis C Screening 1979 COVID-19 Vaccine (#1) 02/08/1980 Depression Screening 1991 Preventative Health Evaluation 08/08/1997 Cervical Cancer Screening (Pap Smear) 08/08/2000 Colon Cancer Screening (Colonoscopy) 08/08/2024 Influenza Vaccine (#1) 2024 8, 11/17/2017, 01/13/2017, Additional history exists DTap / Tdap / Td (2 - Td or Tdap) 01/13/2027 01/13/2017 Pneumococcal Vaccine Aged Out No long er eligible based on patient's age to complete this topic RSV Ped < 20 months Aged Out No longe r eligible based on patient's age to complete this topic Care Teams Enrollment Processor Relationship Specialty Start Date End Date Bryan Estrella MD [address] [place] [address] PCP - General Internal Medicine 07/31/20
--- OUTSIDE RECORDS SUMMARY | 2024-10-04 08:22 | XMS_ITS | Clinical Summary ---
Author Organization [facility] Address [address] [place] [address] Care Team Providers Care Credit Administration Manager Name Role Phone Bryan Estrella MD Primary Care Provider [phone] Social History Tobacco Use Types Packs/Day Years Used Date Smoking Tobacco: Never Assessed Comments Unknown Sex and Gender Information Value Date Recorded Sex Assigned at Not on file Legal Sex Female 12:26 PM EST Gender Identity Not on file Sexual Orientation Not on file Plan of Treatment Scheduled Referrals Name Type Priority Associated Diagnoses Order Schedule Ambulatory referral to Rheumatology Outpatient Referral Routine Seronegative arthritis Expected: 03/21/2024, Expires: 03/21/2025 Health Maintenance Due Date Last Done Comments CT Colonography 1979 Colonoscopy 1979 Colorectal Cancer Screening 1979 FIT-DNA 1979 FIT 1979 FOBT 1979 Hepatitis C Screening 1979 Mammogram 1979 Sigmoidoscopy 1979 Annual Physical Exam 08/08/1997 Pap Smear 08/08/2000 HPV Vaccines (3 - 3-dose series) 08/06/2006 04/06/2006, 02/05/2006 Cervical Cancer Screening 08/08/2009 HPV/Cotest 08/08/2009 COVID-19 Vaccine ( season) 2023 02/25/2021, 01/06/2021, 07/11/2020, Additional history exists Influenza Vaccine (#1) 2024 , 11/17/2017, 01/13/2017, Additional history exists Tdap and Td Vaccines Adult 01/13/2027 01/13/2017 HIB Vaccines Aged Out No longer eligi ble based on patient's age to complete this topic Hepatitis A Vaccines Aged Out No long er eligible based on patient's age to complete this topic IPV Vaccines Aged Out No longer eligi ble based on patient's age to complete this topic Meningococcal Vaccine Aged Out No emili sundeep eligible based on patient's age to complete this topic Pneumococcal Vaccine: Peds (0 to 5 Yrs) and At-Risk Pts (6 to 49 Yrs) Aged Out No longer eligible based on patient's age to complete this topic RSV <20 Months Aged Out No longer leonidas gible based on patient's age to complete this topic Insurance Care Teams Credit Administration Manager Relationship Specialty Start Date End Date Bryan Estrella MD [address] [place] [address] PCP - General 03/20/24
--- OUTSIDE RECORDS SUMMARY | 2024-10-04 08:22 | XMS_ITS | Clinical Summary ---
Author Organization [facility] Address [address] [place] [address] Phone Care Team Providers Care Director Web Name Role Phone Bryan Estrella MD Primary Care Provider [phone] Allergies Active Allergy Reactions Criticality Noted Date [...] by mouth at bedtime. 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 09/25 normal [place]/EGD. Iron infusions. Periodic CBC to be checked by PCP Weak urinary stream 02/27/2014 Fibromyalgia 03/21/2013 Chronic daily headache 10/26/2010 Overview (01/31/2024): Dr Pierre; Dr Angeles Dermoid 10/09/2010 Overview (01/31/2024): Stable in size from 2009 to 2014 Major depressive disorder 07/23/2010 Overview (01/31/2024): Abilify caused side effects. [facility] Migraines 07/23/2010 Anxiety 07/13/2008 Chronic back pain 07/13/2008 Overview (01/31/2024): Surgery- Dr. Barillas 07/25/09; justin Ty [facility] Encounters Date Type Department Care Team Description 10/04/2024 Billing Patient Not Present Gastroenterology - [address] [phone] Shaji Benavides MD 09/21/2024 Telephone Gastroenterology - [address] [phone] Lui Hardy MD 09/14/2024 Telephone Obstetrics & Gynecology [address] [phone] Mirta Sampson CNM prior auth 08/14/2024 1:00 PM EDT Clinical Support Obstetrics & Gynecology [address] [phone] Surveillance of contraceptive injection (Primary Dx) 2024 3:45 PM EDT Consult Obstetrics & Gynecology [address] [phone] Mirta Sampson CNM Menopausal vasomotor syndrome (Primary Dx); Irregular menstrual cycle; Superficial venous thrombosis of right upper extremity from Last 3 Months Immunizations Name Administration [...] Date Site/Laterality Comments FLEXIBLE SIGMOIDOSCOPY 07/23/2008 PROCEDURE: MO SIGMOIDOSCOPY FLX DX W/COLLJ SPEC BR/WA IF PFRMD; COMMENT: Normal to 70 cm ESOPHAGOGASTRODUODENOSCOPY 07/23/2008 PROCEDURE: MO EGD TRANSORAL BIOPSY SINGLE/MULTIPLE; COMMENT: Visually normal, duodenal bx: Normal. BACK SURGERY 07/25/2009 PROCEDURE: HISTORICAL BACK SURGERY; COMMENT: Dr. Barillas COLONOSCOPY 09/05/2020 PROCEDURE: HISTORICAL COLONOSCOPY; COMMENT: negative ESOPHAGOGASTRODUODENOSCOPY 09/05/2020 PROCEDURE: MO EGD TRANSORAL BIOPSY SINGLE/MULTIPLE; COMMENT: negative, biopsy pending OTHER SURGICAL HISTORY 10/15/2022 Left PROCEDURE: MO BX BREAST W/DEVICE 1ST LESION STEREOTACTIC GUID [...] DX:Anemia; COMME NT: Dr Whitehead. 09/25 normal [place]/EGD. Iron infusions. Periodic CBC to be checked by PCP Attention deficit 06/04/2019 DX:Attention d eficit Chronic back pain 07/13/2008 DX:Chronic nura k pain; COMMENT: Surgery- Dr. Barillas 07/25/09; Dr Kruse, then [facility] Chronic cough 08/03/2020 DX:Chronic cough ; COMMENT: Dr Avila Chronic daily headache 10/26/2010 DX:Chroni c daily headache; COMMENT: Dr Pierre; Dr Karthik Leavittoid 10/09/2010 DX:Dermoid; COMM ENT: Stable in size [...] COMMENT: Abilify caused side effects. 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 Industry [...] 107 08/14/2024 1:43 PM EDT Temperature 36.7 C (98.1 F) 06/26/2024 3:11 PM EDT Respiratory Rate - - Oxygen Saturation 100% 06/26/2024 3:11 PM EDT Inhaled Oxygen Concentration - - Weight 55.8 kg (123 lb) 08/14/2024 1:43 PM EDT Height 167.6 cm (5' 6 ) 08/14/2024 1:43 PM EDT Body Mass Index 19.85 08/14/2024 1:43 PM EDT Plan of Treatment Upcoming Encounters Date Type Department Care Team (Late st Contact Info) Description 10/18/2024 3:00 PM EDT Appointment Radiology Department - [address] [phone] 10/18/2024 3:20 PM EDT Appointment Radiology Department - [address] [phone] 11/08/2024 1:00 PM EDT Clinical Support Obstetrics & Gynecology - [address] [phone] Health Maintenance Due Date Last Done Comments Hepatitis B Vaccines (1 of 3 - 19+ 3-dose series) 08/08/1998 Pneumococcal Vaccine: Pediatrics (0 to 5 Years) and At-Risk Patients (6 to 49 Years) (1 of 2 - PCV) 08/08/1998 HPV Vaccines (3 - Risk 3-dose series) 08/06/2006 04/06/2006, 02/05/2006 Colorectal Cancer Screening: Colonoscopy 02/14/2022 Social Influencers of Health Screening 02/14/2022 COVID-19 Vaccine ( season) 2023 02/25/2021, 01/06/2021, 07/11/2020, Additional history exists Depression Screening 03/08/2024 Influenza Vaccine (#1) 2024 5, 11/17/2017, 11/17/2017, Additional history exists Breast Cancer Screening 10/13/2025 10/14/19 24, 10/14/2023, 10/15/2022, Additional history exists DTaP,Tdap,and Td Vaccines (2 - Td or Tdap) 01/13/2027 01/13/2017 Cervical Cancer Screening: HPV 06/22/2029 06/22/2024, 08/23/2020 HIV Screening Completed 06/22/2024, 08/23/2020 Hepatitis C [...] 2024 4:06 PM EDT Irregular menstrual cycle HEPATITIS C ANTIBODY Routine 06/22/2024 3:46 PM EDT Encounter for well woman exam with routine gynecological exam Screen for STD (sexually transmitted disease) HIV 1, 2 ANTIBODY, P24 ANTIGEN WITH REFLEX TO DIFFERENTIATION Routine 06/22/2024 3:46 PM EDT Encounter for well woman exam with routine gynecological exam Screen for STD (sexually transmitted disease) HPV WITH REFLEX GENOTYPE Routine 06/22/2024 3:01 PM EDT Encounter for well woman exam with routine gynecological exam Screening for malignant neoplasm of cervix DIAGNOSTIC MAMMOGRAPHY INCLUDING CAD BILATERAL Routine 10/14/2023 [...] Unknown 2024 4:06 PM EDT Mirta Sampson [facility] POINT OF CARE TEST ENTER/EDIT ORDERABLES Final Result * Hepatitis C antibody (06/22/2024 3:46 PM EDT) [facility] Hepatitis C Antibody Negative Negative LAB CHEMISTRY METHOD 06/22/2024 5:39 PM EDT [facility] Blood Venous blood specimen / Unknown Venipuncture / Unknown 06/22/2024 3:46 PM EDT 06/22/2024 4:11 PM EDT Mirta Sampson [facility] BLOOD ORDERABLES Final Re sult [facility] [address] [place] [address], [place] [phone] * HIV 1,2 antibody, p24 antigen with reflex to differentiation (06/22/2024 3:46 PM EDT) Pathologist [facility] HIV Combo AB/AG Negative Negative LAB CHEMISTRY METHOD 06/22/2024 5:40 PM EDT [facility] Blood Venous blood specimen / Unknown Venipuncture / Unknown 06/22/2024 3:46 PM EDT 06/22/2024 4:11 PM EDT Narrative [facility] - 06/22/2024 5:40 PM EDT This assay is a 4th generation assay allowing for earlier detection of HIV infection by detecting the presence of the HIV-1 p24 antigen as well as the traditional antibodies to HIV type 1 (including group O) and type 2. Use of a 4th generation assay is the current CDC recommendation for HIV screening. [facility] BLOOD ORDERABLES Final Re sult Performing Organization Address City/[facility]/ZIP Co de Phone Number [facility] [address] [place] [address], [place] [phone] * HPV with reflex genotype (06/22/2024 3:01 PM EDT) HPV Negative Negative LAB MICROBIOLOGY METHOD 06/23/2024 1:21 PM EDT [facility] Brushing/Spatula Cervix uteri structure / Unknown 06/22/2024 3:01 PM EDT 06/23/2024 4:55 AM EDT [facility] MOLECULAR DIAGNOSTICS ORD ERABLES Final Result Performing Organization Address [facility]/ZIP Co de Phone Number [facility] [address] [place] [address], [place] [phone] * DIAGNOSTIC MAMMOGRAPHY INCLUDING CAD BILATERAL (10/14/2023 [...] needle core biopsy on October 15, 2022. The addended pathology report describes fibroepithelial proliferation, with differential diagnosis including fibroadenoma, fibroadenomatoid hyperplasia and a benign phyllodes tumor. A 6-month left breast ultrasound was recommended. Patient returns to the Radiology service today. Studies: 1. Bilateral diagnostic mammography with tomosynthesis and CAD 2. Targeted ultrasound of the left breast Technique: Bilateral full-field digital diagnostic mammography is obtained and read in conjunction with computer aided detection. Tomosynthesis as well as 2D C-View imaging were obtained. Comparison: [...] ; this is unchanged from October 2022. No new masses, suspicious calcifications or other abnormalities are seen. Targeted ultrasound of the left breast was performed at the location of the previously biopsied sonographic finding. The survey shows a 0.7 x 0.5 x 0.6 cm hypoechoic solid mass at 2 o'clock position at 5 cm from the nipple. Prior measurements in October 2022 were 0.8 x 0.4 x 0.7 cm. No internal vascularity demonstrated with color or power Doppler evaluation. IMPRESSION: Impression: Right breast: Negative, no specific mammographic evidence of malignancy. Normal interval follow-up is recommended in 12 months. Left breast: The size and imaging appearance of the previously biopsied mass at 2 o'clock position is unchanged from October 2022. Benign, no specific evidence of malignancy. However, given the pathology results, a 12-month follow-up diagnostic mammogram and left breast ultrasound is recommended. If everything remains stable at that point, [...] of malignancy. However, given the pathology results, [id number] follow-up diagnostic mammogram and left breast ultrasound isrecommended. If everything remains stable at that point, patient mayreturn to routine screening mammogram. BI-RADS: Category 2: Benign Findings and recommendations discussed with the patient at completion ofthe studies. Jazz Amador CNM IMG BI PROCEDURES F inal Result from Last 3 Months or Most Recently Relevant to Health Maintenance Insurance [facility] MEDICA[employer] ADVANTAGE Care Teams Director Web Relationship Specialty Start Date End Date Bryan Estrella MD [id number] [place] [address] PCP - General Internal Medicine 01/20/24
--- OUTSIDE RECORDS SUMMARY | 2024-10-04 08:22 | XMS_ITS | Clinical Summary ---
Author Organization [address] Address [address] [place] [phone] Care Team Providers Care Service Associate Name Role Phone Bryan Estrella MD Primary Care Provider Allergies Active Allergy Reactions Criticality Noted Date Comments Amitriptyline Unknown Medium 08/10/2024 Urinary Retention Duloxetine Hallucinations Medium 08/10/2024 Fentanyl Arrhythmia High 08/10/2024 Active Problems Problem Noted Date Diagnosed Date COVID-19 long hauler 08/10/2024 Encounters Date Type Department Care Team Description 08/24/2024 Telephone [facility] [address] [place] [address] Hedy Pastrana MD Referral 08/11/2024 Scanned Document [facility] [address] [place] [address] Hedy Pastrana MD 08/11/2024 Social Work [facility] [address] [place] [address] Angela Ricketts LCSW 08/10/2024 3:00 PM EDT Office Visit [facility] at [address] [place] [address] Bryan Estrella MD Sanders, Lisa, MD COVID-19 long hauler manifesting chronic concentration deficit (Primary Dx); COVID-19 long hauler manifesting chronic decreased mobility and endurance; 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; Abnormal loss of weight; Appetite absent; Cognitive changes 08/10/2024 2:00 PM EDT - 08/10/2024 11:59 PM EDT Hospital Encounter [facility] at [address] [facility] [address] [place] [address] Bryan Estrella MD Sanders, Lisa, MD Discharge Disposition: Home or Self Care 08/03/2024 [facility] at [address] [facility] [address] [place] [address] Deanne Akins LCSW from Last 3 Months Social History Tobacco Use Types Packs/Day Years Used Date Smoking Tobacco: Never Smokeless Tobacco: Never Tobacco Cessation:Counseling Given: Not Answered Alcohol Use Standard Drinks/Week Comments Never 0 (1 standard drink = 0.6 oz pur e alcohol) [facility] Utilities Answer Date Recorded In the past 12 months has th e electric, gas, oil, or water company threatened to shut off services in your home? No 08/11/2024 PHQ-2 Answer Date Recorded PHQ-2 Total Score 0 08/10/2024 Hunger Vital Sign Answer Date Recorded Within the past 12 months, y ou worried that your food would run out before you got the money to buy more. Never true 08/12/19 25 Within the past 12 months, t he food you bought just didn't last and you didn't have money to get more. Never true 08/11/2024 PRAPARE - Transportation Answer Date Re corded In the past 12 months, has l ack of transportation kept you from medical appointments or from getting medications? No 08/2024 In the past 12 months, has l ack of transportation kept you from meetings, work, or from getting things needed for daily living? No 08/11/2024 Housing Stability Answer Date Recorded What is your living situation today? I have a [facility] place to live 08/11/2024 Housing Stability Not on file 08/11/2024 Interpersonal Safety Answer Date Record ed Is there anyone in your life that is hurting or threatening you in anyway? no 08/11/2024 Physical Indicators of Abuse No evidence of phys ical abuse 08/11/2024 Comments Unknown Sex and Gender Information Value Date Recorded Sex Assigned at Female 08/10/2024 2:42 PM EDT Legal Sex Female 5:36 AM EST Gender Identity Not on file Sexual Orientation Don't know 08/10/2024 2: 42 PM EDT Last Filed Vital Signs Vital Sign Reading Time Taken Comments Blood Pressure 108/72 08/10/2024 2:47 PM EDT Pulse 79 08/10/2024 2:47 PM EDT Temperature 35.9 C (96.7 F) 08/10/2024 2:47 PM EDT Respiratory Rate 14 08/10/2024 2:47 PM EDT Oxygen Saturation 100% 08/10/2024 2:47 PM EDT Inhaled Oxygen Concentration - - Weight 55.9 kg (123 lb 4.8 oz) 08/10/2024 2:47 P M EDT Height 167.6 cm (5' 6 ) 08/10/2024 2:47 PM EDT Body Mass Index 19.9 08/10/2024 2:47 PM EDT Plan of Treatment Upcoming Encounters Date Type Department Care Team ([facility] st Contact Info) Description 11/07/2024 3:00 PM EDT Follow Up [facility] at [address] [facility] [address] [place] [address] Junior Johnson PA [address] [facility] [address] [place] [address] Health Maintenance Due Date Last Done Comments Cervical cancer screening 08/08/2000 Breast cancer screening 2019 Lipid disorder screening 2019 Covid-19 vaccine series ( season) 2023 02/25/2021, 01/06/2021, 07/11/2020, Additional history exists Colon cancer screening, Colonoscopy 08/08/2024 Diabetes screening 08/08/2024 Influenza vaccine 11/06/2024 03/17/2024, , 01/13/2017, Additional history exists Tetanus adult (Td q 10,TDAP once) 01/13/2027 01/13/2017 RSV Immunization (1 - 1-dose 75+ series) 08/08/2054 HIV screening Completed 06/22/2024 Hepatitis C screening Completed 06/22/2024 Meningococcal Vaccine Aged Out No emili sundeep eligible based on patient's age to complete this topic Pneumococcal Vaccine (2 - 49 years) Aged Out No longer eligible based on patient's age to complete this topic Insurance [employer] Care Teams Service Associate Relationship Specialty Start Date End Date Brayn Estrella MD [address] [place] [address] PCP - General Internal Medicine 01/12/24
--- OUTSIDE RECORDS SUMMARY | 2024-10-04 08:22 | XMS_ITS ---
Author Name [facility] Organization Unknown Care Team Organization Name Specialty Phone Email Start Date End [facility] 04/06/2024 [facility] Liz Nuñez Primary [facility] 01/13/2022
== END 2024-10-04 08:18 | disposition home or self-care (01) ==
LOC: HO.HKASLDS 08:17
PROVIDERS: Visit Provider Nurse Practitioner Family
DX: Z13.89 Encounter for screening for other disorder (principal)

== ENCOUNTER 2024-10-12 10:56 | Outpatient (REF) | payer OTHER, SELFPAY ==
[2024-10-12 18:10] LABS: Alanine Aminotransferase 13 U/L (0-31); Aspartate Amino Transferase 24 U/L (5-31); Estimated Glomerular Filt Rate > 60
== END 2024-10-12 10:57 | disposition home or self-care (01) ==
LOC: HO.HKASLDS 10:56
PROVIDERS: PCP Internal Medicine; Visit Provider Internal Medicine Rheumatology
DX: M47.812 Spondylosis without myelopathy or radiculopathy, cervical region (principal); M62.81 Muscle weakness (generalized); M25.50 Pain in unspecified joint; Z79.899 Other long term (current) drug therapy
CPT/HCPCS: 36415; 82085; 82550; 82565; 84450; 84460; 85652; 86140; 99202

== ENCOUNTER 2024-10-12 10:56 | Outpatient (AMB) | payer OTHER, SELFPAY ==
--- NOTE | 2024-10-12 10:57 | MHC.OFFVIS ---
Vital Signs 10/12/24 10:58 Height 5 ft 6 in Weight 126 lb 1.671 oz BMI 20.4 BP 100/68 Blood Pressure Location Lt brachial Position Sitting Pulse 90 Pulse Source Pulse Oximeter Pulse Oximetry (%) 99 Oxygen Delivery Method Room Air Intake Visit Reasons: joint pain Intake Note: Patient presents for joint pain. Accompanied by: Self / Same As Patient Allergies penicillin V Allergy (Unknown, Verified 10/12/24 10:58) Rash Sulfa (Sulfonamide Antibiotics) Allergy (Unknown, Verified 10/12/24 10:58) Rash HPI HPI joint pain: Details: New patient evaluation for joint pain. She was a patient of Dr. Whitney who treated her pain related scoliosis. She eventually got a fusion and referred to pain management for further pain management when he left practice. Her body felt that is was degenerated after surgery. She feels stiff. MS throughout the day. She has swelling in hands and knees. R hand swelling, paresthesia, weakness started before COVID-19. Progressed to involve left hand. She has nocturnal paresthesia. Pain wakes her up. Unable to hold cellphone. Pain and swelling in knees. Worse in the winter requiring use of care. SHe also has pain in neck. SHe has stiff neck. Hard to rotate neck to left. Failed PT, facet injections. She had a spinal stimular trial with benefit at the end of the trial with improved movement in neck. Wakes up with 10/10. Spinal stimulator improved pain to 2/10. She gets neck spasms. Sees [facility] pain management Dr. Aguilera. She is on a regimen with oxycontin 20mg BID and oxycodone 30mg TID. Takes ibuprofen daily in AM. On lyrica. EMG on two occassions many years ago but patient reports the results were not indicative of a cause of her symptoms. She was prescribed wrist braces without benefit. She did OT for hands at [facility]. She started OT yesterday. Skin peels with scales and pruritus and was dx eczema by Dermatology. No rash. Denies PsO, iritis, IBD, miscarriages. Hx blood clot in bilateral upper arms in same vein. She was on OCP prior to first blood clot. She was told by timber surveyor the second blood clot that occurred in the last year was due to a blood draw. She was told by timber surveyor that her bone marrow does make enough blood cells with ?protein C deficiency. She receives infusions from Hematology Dr. Whitehead. No dysphagia. 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 Speech, skin, vision, appetite is affected. She recently had a consultation at [facility] and was diagnosed with chronic fatigue syndrome. No family hx rheumatological disease Pmx: narcolepsy, IBS, chronic fatigue syndrome Medical history reviewed in [facility] Medical list reviewed in [facility] Medical History Superficial venous thrombosis of right upper extremity Major depressive disorder Reactive airway disease Hematuria Fibromyalgia Fibroadenoma Esophageal dysmotility GODWIN (generalized anxiety disorder) Dry eye syndrome Chronic back pain Anemia Surgical History H/O lumbosacral spine surgery Family History Mother HTN (hypertension) Social History Patient Tobacco Use Status: Never used Tobacco Physical Exam Vital Signs: Last Vital Signs Pulse 90 10/12/24 10:58 BP 100/68 10/12/24 10:58 Pulse Ox 99 10/12/24 10:58 Oxygen Delivery Method Room Air 10/12/24 10:58 BMI result Body Mass Index 20.4 Const Other: General: Comfortable CVS: RRR Respiratory: clear to auscultation bilaterally. Good respiratory effort Skin: No lesions seen MSK: She does not have any joint tenderness of small joints in hands, wrists, elbows, feet, ankles, knees. Tender bilateral shoulders. No synovitis. Shoulder abduction 90 degrees actively, which increases to 160 on the right side and 130 on the left side. She has limited full internal and external rotation due to pain actively, which improves with passive range of motion limited by pain. Crepitus palpated bilateral shoulders. Upper extremity power 4/5 shoulder abductors and extensors, elbow extensors and flexors are 5/5 power. Lower extremity power exam 4/5 hip flexors with rest of lower extremity 5/5. She has tremors of the extremities being examined when power exam is being performed. No SI joint tenderness. Tenderness to palpate thoracic spinous process and lumbar spinous process. Negative SEDRICK. Limited lumbar flexion. She has limited cervical extension flexion and rotation to the left. Rotation of right cervical spine is 45 degrees. Results Reviewed Results Reviewed: MRI C-spine May 2023 reviewed. Assessment & Plan Assessment & Plan (1) Multiple joint pain: Comment: 44-year-old patient with narcolepsy, post COVID syndrome presents with chronic polyarthralgias with swelling of her hands and knees worse in the winter months, stiffness, limited range of motion of extremities, paraesthesia of bilateral hands and weakness, muscle spasms with exam remarkable for proximal muscle weakness of upper extremity and lower extremities with reduced range of motion of shoulders. She does not have tender joints or synovitis suggestive of inflammatory arthritis. Reduced range of motion of shoulders may be related to underlying osteoarthritis as she has crepitus on exam. Patient is on OxyContin 20 mg b.i.d. and oxycodone 30 mg q.i.d., which is likely confounding exam. Can consider idiopathic inflammatory myositis contributing to her symptoms of muscle weakness and inflammatory arthritis if she indeed has had episodes of joint swelling (rare but can occur in idiopathic inflammatory myositis). She has experienced post COVID syndrome and her polyarthralgias, which started after back surgery could have been heightened after COVID. Stiff man syndrome is in the differential diagnosis, which can contribute to her symptoms of muscle spasms and reduced range of motion/rigidity contributing to loss of function. Her prior workup has revealed negative NICO, SSA/SSB, rheumatoid factor, anti CCP antibody. Code(s): M25.50 - Pain in unspecified joint Category: Medical Plan: Labs ordered including Sm/FORMING TUBE SELECTOR, muscle enzymes and inflammatory markers I will consider ordering EMG of upper and lower extremities after lab results are back X-rays ordered of bilateral hands, feet, knees, C-spine, and L-spine to evaluate for radiographic changes of inflammatory arthritis versus degenerative joint disease She will continue to wear bilateral cock-up wrist braces at night for empiric treatment of carpal tunnel syndrome (prior to EMGs of upper extremities negative per patient in the past) PT ordered to improve range of motion and strengthening of extremities. I encouraged patient to be compliant with her home exercise program She will follow up with pain management for spinal stimulator Return to clinic in 1 month. She will try to hold off on taking her morning dose of OxyContin for exam (2) Muscle weakness: Code(s): M62.81 - Muscle weakness (generalized) Category: Medical Plan: See above (3) Cervical spondylosis: Comment: Limiting range of motion Code(s): M47.812 - Spondylosis without myelopathy or radiculopathy, cervical region Category: Medical Plan: Encouraged her to be compliant with home exercise program Orders: Orders XR hips KRISTIAN min 3V Today M25.50 - Pain in unspecified joint C Reactive Protein Today M25.50 - Pain in unspecified joint, M62.81 - Muscle weakness (generalized), Z79.899 - Other terminal system operator (current) drug therapy Creatinine Today M25.50 - Pain in unspecified joint, M62.81 - Muscle weakness (generalized) Creatine Kinase Total Today M25.50 - Pain in unspecified joint Aldolase Today M25.50 - Pain in unspecified joint XR Hand Bilat min 3v Today M25.50 - Pain in unspecified joint XR Foot Kristian 3V Today M25.50 - Pain in unspecified joint XR Shoulder Kristian min 2V Today M25.50 - Pain in unspecified joint XR cervical spine 3V Today M25.50 - Pain in unspecified joint XR lumbar spine 2-3V Today M25.50 - Pain in unspecified joint Erythrocyte Sedimentation Rate Today M25.50 - Pain in unspecified joint, M62.81 - Muscle weakness (generalized), Z79.899 - Other terminal system operator (current) drug therapy Alanine Aminotransferase Today M25.50 - Pain in unspecified joint, M62.81 - Muscle weakness (generalized) Aspartate Amino Transferase Today M25.50 - Pain in unspecified joint, M62.81 - Muscle weakness (generalized) PT Evaluation and Treatment Today M25.50 - Pain in unspecified joint, M62.81 - Muscle weakness (generalized) Sm Sm/FORMING TUBE SELECTOR Antibodies Today M25.50 - Pain in unspecified joint, M62.81 - Muscle weakness (generalized) Coding Level of Care Code New Pt Level 4 (83359) Complex EM visit Add On G2211 Diagnoses Multiple joint pain M25.50 Muscle weakness M62.81 Cervical spondylosis M47.812
[2024-10-12 10:58] VITALS: BP 100/68; PULSE 90; O2SAT 99; BMI 20.4
--- OUTSIDE RECORDS SUMMARY | 2024-10-12 11:37 | XMS_ITS | Clinical Summary ---
Author Organization [facility] Address [address] [place] [address] Care Team Providers Care Sequins Winder Name Role Phone Bryan Estrella MD Primary Care Provider [phone] Allergies Active Allergy Reactions Criticality Noted Date [...] age to complete this topic Care Teams Sequins Winder Relationship Specialty Start Date End Date Bryan Estrella MD [address] [place] [address] PCP - General Internal Medicine 07/31/20
--- OUTSIDE RECORDS SUMMARY | 2024-10-12 11:37 | XMS_ITS | Clinical Summary ---
Author Organization [facility] Address [address] [place] [address] Phone Care Team Providers Care Litigation Partner Name Role Phone Bryan Estrella MD Primary Care Provider [phone] Allergies Active Allergy Reactions Criticality Noted Date [...] by mouth at bedtime. 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 09/25 normal [place]/EGD. Iron infusions. Periodic CBC to be checked by PCP Weak urinary stream 02/27/2014 Fibromyalgia 03/21/2013 Chronic daily headache 10/26/2010 Overview (01/31/2024): Dr Pierre; Dr Angeles Dermoid 10/09/2010 Overview (01/31/2024): Stable in size from 2009 to 2014 Major depressive disorder 07/23/2010 Overview (01/31/2024): Abilify caused side effects. [facility] Migraines 07/23/2010 Anxiety 07/13/2008 Chronic back pain 07/13/2008 Overview (01/31/2024): Surgery- Dr. Barillas 07/25/09; justin Ty [facility]SS Encounters Date Type Department Care Team Description 10/04/2024 Billing Patient Not Present Gastroenterology - [address] [phone] Shaji Benavides MD Iron deficiency anemia due to chronic blood loss (Primary Dx) 09/21/2024 Telephone Gastroenterology - [address] [phone] Lui Hardy MD 09/14/2024 Telephone Obstetrics & Gynecology [address] [phone] Mirta Sampson CNM prior auth 08/14/2024 1:00 PM EDT Clinical Support Obstetrics & Gynecology [address] [phone] Surveillance of contraceptive injection (Primary Dx) 2024 3:45 PM EDT Consult Obstetrics & Gynecology [address] [phone] Mirta Sampson CNM Menopausal vasomotor syndrome (Primary [...] Date Site/Laterality Comments FLEXIBLE SIGMOIDOSCOPY 07/23/2008 PROCEDURE: CT SIGMOIDOSCOPY FLX DX W/COLLJ SPEC BR/WA IF PFRMD; COMMENT: Normal to 70 cm ESOPHAGOGASTRODUODENOSCOPY 07/23/2008 PROCEDURE: CT EGD TRANSORAL BIOPSY SINGLE/MULTIPLE; COMMENT: Visually normal, duodenal bx: Normal. BACK SURGERY 07/25/2009 PROCEDURE: HISTORICAL BACK SURGERY; COMMENT: Dr. Barillas COLONOSCOPY 09/05/2020 PROCEDURE: HISTORICAL COLONOSCOPY; COMMENT: negative ESOPHAGOGASTRODUODENOSCOPY 09/05/2020 PROCEDURE: CT EGD TRANSORAL BIOPSY SINGLE/MULTIPLE; COMMENT: negative, biopsy pending OTHER SURGICAL HISTORY 10/15/2022 Left PROCEDURE: CT BX BREAST W/DEVICE 1ST LESION STEREOTACTIC GUID [...] DX:Anemia; COMME NT: Dr Whitehead. 09/25 normal [place]/EGD. Iron infusions. Periodic CBC to be checked [...] COMMENT: Abilify caused side effects. Psychiatry prescribing, [facility] Vomiting 07/17/2009 DX:Vomiting; COM MENT: 05/15- egd [...] 3:00 PM EDT Appointment Radiology Department - [address] [phone] 10/18/2024 3:20 PM EDT Appointment Radiology Department - [address] [phone] 11/08/2024 1:00 PM EDT Clinical Support Obstetrics & Gynecology - [address] [phone] Health Maintenance Due Date Last [...] Procedure Name Priority Date/Time Associated Diagnosis Comments ENDOSCOPY, SMALL BOWEL Routine 3:13 PM EDT POC , URINE DIAGNOSTIC Routine 2024 4:06 [...] Recently Relevant to Health Maintenance Results * Endoscopy, small bowel with ileum (10/04/2024 3:13 PM EDT) Anatomical Region Laterality Modality Endoscopy Historical Provider GI~PROCEDURE ORDERABLES F inal Result * POC , urine manually resulted (2024 4:06 PM EDT) HCG, Ur POC Negative Negative POC hCG Int QC Pass? Yes Yes Urine Urine specimen obtained by clean catch procedure / Unknown 2024 4:06 PM EDT Mirta ROJAS POINT OF CARE TEST ENTER/EDIT ORDERABLES Final Result * Hepatitis C antibody (06/22/2024 3:46 PM EDT) Hepatitis C Antibody Negative Negative LAB CHEMISTRY METHOD 06/22/2024 5:39 PM EDT [facility] Blood Venous blood specimen / Unknown Venipuncture / Unknown 06/22/2024 3:46 PM EDT 06/22/2024 4:11 PM EDT Mirta ROJAS LAB BLOOD ORDERABLES Final Re sult [facility] [address] [place] [address], [place] [phone] * HIV 1,2 antibody, p24 antigen with reflex to differentiation (06/22/2024 3:46 PM EDT) HIV Combo AB/AG Negative Negative LAB CHEMISTRY METHOD 06/22/2024 5:40 PM EDT [facility] Blood Venous blood specimen / Unknown Venipuncture / Unknown 06/22/2024 3:46 PM EDT 06/22/2024 4:11 PM EDT Narrative [facility] - 06/22/2024 5:40 PM EDT This assay is a 4th generation assay allowing for earlier detection of HIV infection by detecting the presence of the HIV-1 p24 antigen as well as the traditional antibodies to HIV type 1 (including group O) and type 2. Use of a 4th generation assay is the current CDC recommendation for HIV screening. Mirta Sampson [facility] BLOOD ORDERABLES Final Re sult [facility] [address] [place] [address], [place] [phone] * HPV with reflex genotype (06/22/2024 3:01 PM EDT) Pathologist [facility] HPV Negative Negative LAB MICROBIOLOGY METHOD 06/23/2024 1:21 PM EDT [facility] Brushing/Spatula Cervix uteri structure / Unknown 06/22/2024 3:01 PM EDT 06/23/2024 4:55 AM EDT [facility] MOLECULAR DIAGNOSTICS ORD ERABLES Final Result [facility] [address] [place] [address], [place] [phone] * DIAGNOSTIC MAMMOGRAPHY INCLUDING CAD BILATERAL (10/14/2023 [...] of malignancy. However, given the pathology results, [id number] follow-up diagnostic mammogram and left breast ultrasound isrecommended. If everything remains stable at that point, patient mayreturn to routine screening mammogram. BI-RADS: Category 2: Benign Findings and recommendations discussed with the patient at completion ofthe studies. Jazz Amador CN IMG BI PROCEDURES F inal Result from Last 3 Months or Most Recently Relevant to Health Maintenance Insurance [facility] MEDICAID ADVANTAGE Care Teams Litigation Partner Relationship Specialty Start Date End Date Bryan Estrella MD [id number] [place] [address] PCP - General Internal Medicine 01/20/24
--- OUTSIDE RECORDS SUMMARY | 2024-10-12 11:37 | XMS_ITS | Clinical Summary ---
Author Organization [address] Address [address] [place] [phone] Care Team Providers Care Pastry Chef Name Role Phone Bryan Estrella MD Primary Care Provider Allergies Active Allergy Reactions Criticality Noted Date Comments Amitriptyline Unknown Medium 08/10/2024 Urinary Retention Duloxetine Hallucinations Medium 08/10/2024 Fentanyl Arrhythmia High 08/10/2024 Active Problems Problem Noted Date Diagnosed Date COVID-19 long hauler 08/10/2024 Encounters Date Type Department Care Team Description 08/24/2024 Telephone [facility] at [address] [place] [address] Hedy Pastrana MD Referral 08/11/2024 Scanned Document [facility] at [address] [place] [address] Hedy Pastrana MD 08/11/2024 Social Work [facility] at [address] [place] [address] Angela Ricketts LCSW 08/10/2024 3:00 PM EDT Office Visit [facility] at [address] [place] [address] Bryan Estrella MD Sanders, Lisa, MD COVID-19 long hauler manifesting chronic concentration deficit (Primary Dx); COVID-19 long hauler manifesting chronic decreased mobility and endurance; 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; Abnormal loss of weight; Appetite absent; Cognitive changes 08/10/2024 2:00 PM EDT - 08/10/2024 11:59 PM EDT Hospital Encounter Re[facility] [address] [facility] [address] [place] [address] Bryan Estrella MD Sanders, Lisa, MD Discharge Disposition: Home or Self Care 08/03/2024 [facility] at [address] [facility] [address] [place] [address] Deanne Akins LCSW from Last 3 Months Social History Tobacco Use Types Packs/Day Years Used Date Smoking Tobacco: Never Smokeless Tobacco: Never Tobacco Cessation:Counseling Given: Not Answered Alcohol Use Standard Drinks/Week Comments Never 0 (1 standard drink = 0.6 oz pur e alcohol) [facility] Utilities Answer Date Recorded In the past [...] your living situation today? I [facility] 08/11/2024 Housing Stability Not [...] Upcoming Encounters Date Type Department Care Team ([facility] st Contact Info) Description 11/07/2024 3:00 PM EDT Follow Up [facility] at [address] [facility] [address] [place] [address] Junior Johnson PA [address] [facility] [address] [place] [address] Health Maintenance Due Date Last Done Comments [...] GENERIC COMMERCIAL GENERIC COMMERCIAL GENERIC Care Teams Pastry Chef Relationship Specialty Start Date End Date Bryan Estrella MD [address] [place] [address] PCP - General Internal Medicine 01/12/24
--- OUTSIDE RECORDS SUMMARY | 2024-10-12 11:37 | XMS_ITS | Clinical Summary ---
Author Organization [facility] Address [address] [place] [address] Care Team Providers Care Military Aircraft Designer Name Role Phone Bryan Estrella MD Primary Care Provider [phone] Social History Tobacco Use Types Packs/Day Years [...] to complete this topic Insurance Care Teams Military Aircraft Designer Relationship Specialty Start Date End Date Bryan Estrella MD [address] [place] [address] PCP - General 03/20/24
== END 2024-10-12 11:55 | disposition home or self-care (01) ==
LOC: HO.RHES 10:56
PROVIDERS: PCP Internal Medicine; Visit Provider Internal Medicine Rheumatology
DX: M25.50 Pain in unspecified joint (principal); M62.81 Muscle weakness (generalized); M47.812 Spondylosis without myelopathy or radiculopathy, cervical region
CPT/HCPCS: 99204; G2211

== ENCOUNTER 2024-10-18 16:02 | Outpatient (REF) | payer OTHER, SELFPAY ==
--- NOTE | ~2024-10-18 | XR_ITS ---
EXAMINATION: XR LUMBAR SPINE 2-3 VIEWS HISTORY: M25.50 - Pain in unspecified joint COMPARISON: Comparison is made with the prior examination dated 06/07/2015. FINDINGS: AP, lateral, and coned down views of the lumbar spine are submitted. Osseous mineralization is normal. The patient is again noted to be status post posterior fusion of L1 and L2 with pedicle screws. Spinal stabilization rods extend from the thoracic spine to the L2 level. The proximal portion is excluded. Five nonrib-bearing lumbar vertebral bodies are identified, maintaining normal height without evidence of fracture or spondylolisthesis. There is slight levoscoliosis without change. The intervertebral disc spaces are preserved. The posterior elements are intact. The visualized paraspinal soft tissues are unremarkable. XR/XR lumbar spine 2-3V IMPRESSION: Slight levoscoliosis. Thoracolumbar fusion without change. Electronically signed by: Refugio Jeffrey MD 10/19/2024 07:28 AM EDT
--- NOTE | ~2024-10-18 | XR_ITS ---
EXAMINATION: XR HAND 3 VIEWS BILATERAL HISTORY: M25.50 - Pain in unspecified joint COMPARISON: There are no prior studies available for comparison. FINDINGS: Six views of the bilateral hands are submitted. There is diffuse periarticular osteopenia. There is no fracture or dislocation. There is mild to moderate narrowing of the DIP and PIP joints. No erosions are seen. The soft tissues are unremarkable. XR/XR Hand Bilat min 3v IMPRESSION: Diffuse periarticular osteopenia and narrowing of the DIP and PIP joints. Electronically signed by: Refugio Jeffrey MD 10/19/2024 07:32 AM EDT
--- NOTE | ~2024-10-18 | XR_ITS ---
EXAMINATION: XR SHOULDER 2 OR MORE VIEWS BILATERAL CLINICAL INFORMATION: M25.50 - Pain in unspecified joint COMPARISON: None available. TECHNIQUE: Two views of the right and left shoulder. FINDINGS: Right: No displaced fracture. Mild degenerative changes at the acromioclavicular joint. Glenohumeral joint is intact. No abnormal soft tissue calcification. Left: No displaced fracture. Acromioclavicular and glenohumeral joints are intact. No abnormal soft tissue calcification. XR/XR Shoulder Pascual min 2V IMPRESSION: Right: Mild degenerative changes at the acromioclavicular joint. Left: Unremarkable. Electronically signed by: Maribell Bell MD 10/19/2024 07:29 AM EDT
--- NOTE | ~2024-10-18 | XR_ITS ---
EXAMINATION: XR HIP 2 OR MORE VIEWS BILATERAL HISTORY: M25.50 - Pain in unspecified joint COMPARISON: There are no prior studies available for comparison. FINDINGS: Two views of each hip are submitted. Osseous mineralization is normal. There is no fracture or dislocation. There is mild to moderate narrowing of both hip joints, left greater than right. The soft tissues are unremarkable. XR/XR hips KRISTIAN min 3V IMPRESSION: Mild to moderate narrowing of both hip joints. Electronically signed by: Refugio Jeffrey MD 10/19/2024 07:20 AM EDT
--- NOTE | ~2024-10-18 | XR_ITS ---
EXAMINATION: XR FOOT 3 OR MORE VIEWS BILATERAL CLINICAL INFORMATION: M25.50 - Pain in unspecified joint COMPARISON: None available. TECHNIQUE: AP, lateral, and oblique views of the right and left foot. FINDINGS: Right: No subluxation. 3rd-5th toes are held in partial flexion. No acute fracture or destructive bone lesion. Joint spaces are preserved. Left: No subluxation. 3rd-5th toes are held in partial flexion. No acute fracture or destructive bone lesion. Joint spaces are preserved. XR/XR Foot Pascual 3V IMPRESSION: No significant arthritic changes. Electronically signed by: Maribell Bell MD 10/19/2024 07:40 AM EDT
--- NOTE | ~2024-10-18 | XR_ITS ---
EXAMINATION: XR CERVICAL SPINE CLINICAL INFORMATION: M25.50 - Pain in unspecified joint COMPARISON: None available. TECHNIQUE: 4 views of the cervical spine were obtained. FINDINGS: Mild retrolisthesis of C2 on C3, and C3 on C4. Minimal retrolisthesis of C4 on C5. No compression fracture. Mild disc space narrowing is more prominent at C5-C6. Odontoid process is well aligned with the lateral masses of C1. Partially included Roldan rods along the thoracic spine. XR/XR cervical spine 3V IMPRESSION: Retrolisthesis as described above. Minimal degenerative changes, more pronounced at C5-C6. Electronically signed by: Maribell Bell MD 10/19/2024 07:25 AM EDT
--- OUTSIDE RECORDS SUMMARY | 2024-10-18 16:04 | XMS_ITS | Clinical Summary ---
Author Organization [facility] [address] [facility] Address [address] [place] [phone] Phone Care Team Providers Care Summer Counselor Name Role Phone Bryan Estrella MD Primary Care Provider [phone] Allergies Active Allergy Reactions Criticality Noted Date [...] by mouth at bedtime. 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 09/25 normal [place]/EGD. Iron infusions. Periodic CBC to be checked [...] Encounters Date Type Department Care Team Description 10/18/2024 3:02 PM EDT Hospital Encounter Radiology Department - [address] [phone] Other abnormal and inconclusive findings on diagnostic imaging of breast 10/18/2024 3:00 PM EDT Hospital Encounter Radiology Department - [address] [phone] Encounter for screening mammogram for malignant neoplasm of breast 10/04/2024 Billing Patient Not Present Gastroenterology - [address] [place] [phone] Shaji Benavides MD Iron deficiency anemia due to chronic blood loss (Primary Dx) 09/21/2024 Telephone Gastroenterology - [address] [place] [phone] Lui Hardy MD 09/14/2024 Telephone Obstetrics & Gynecology [address] [phone] Mirta Sampson CNM prior auth 08/14/2024 1:00 PM EDT Clinical Support Obstetrics & Gynecology [address] [phone] Surveillance of contraceptive injection (Primary Dx) 2024 3:45 PM EDT Consult Obstetrics & Gynecology [address] [phone] Mirta Sampson CNM Menopausal vasomotor syndrome (Primary [...] Date Site/Laterality Comments FLEXIBLE SIGMOIDOSCOPY 07/23/2008 PROCEDURE: MT SIGMOIDOSCOPY FLX DX W/COLLJ SPEC BR/WA IF PFRMD; COMMENT: Normal to 70 cm ESOPHAGOGASTRODUODENOSCOPY 07/23/2008 PROCEDURE: MT EGD TRANSORAL BIOPSY SINGLE/MULTIPLE; COMMENT: Visually normal, duodenal bx: Normal. BACK SURGERY 07/25/2009 PROCEDURE: HISTORICAL BACK SURGERY; COMMENT: Dr. Barillas COLONOSCOPY 09/05/2020 PROCEDURE: HISTORICAL COLONOSCOPY; COMMENT: negative ESOPHAGOGASTRODUODENOSCOPY 09/05/2020 PROCEDURE: MT EGD TRANSORAL BIOPSY SINGLE/MULTIPLE; COMMENT: negative, biopsy pending OTHER SURGICAL HISTORY 10/15/2022 Left PROCEDURE: MT BX BREAST W/DEVICE 1ST LESION STEREOTACTIC GUID [...] DX:Anemia; COMME NT: Dr Whitehead. 09/25 normal [place]/EGD. Iron infusions. Periodic CBC to be checked [...] COMMENT: Abilify caused side effects. Psychiatry prescribing, [facility] Vomiting 07/17/2009 DX:Vomiting; COM MENT: [...] Care Team (Late st Contact Info) Description 11/08/2024 1:00 PM EDT Clinical Support Obstetrics & Gynecology - [address] [phone] Health Maintenance Due Date Last [...] Depression Screening 03/08/2024 Influenza Vaccine (#1) 2024 , 11/17/2017, 11/17/2017, Additional history exists Breast Cancer Screening 10/13/2025 10/19/19, 10/14/2023, 10/14/2023, Additional history exists DTaP,Tdap,and Td Vaccines (2 [...] Procedure Name Priority Date/Time Associated Diagnosis Comments US BREAST LIMITED LEFT Routine 3:27 PM EDT Other abnormal and inconclusive findings on diagnostic imaging of breast MG MAMMO DIGITAL DIAGNOSTIC W RAMO BILAT Routine 10/18/2024 3:20 PM EDT Encounter for screening mammogram for malignant neoplasm of breast ENDOSCOPY, SMALL BOWEL Routine 3:13 PM EDT [...] exam Screening for malignant neoplasm of cervix from Last 3 Months or Most Recently Relevant to Health Maintenance Results * US Breast Limited Left (10/18/2024 3:27 PM EDT) Anatomical Region Laterality Modality Breast Left Ultrasound 10/18/2024 3:23 PM EDT Impressions 10/18/2024 3:30 PM EDT 1. 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 Extremely dense breast parenchyma Findings and recommendations were conveyed to the patient. BI-RADS CATEGORY: 2 - BENIGN RECOMMENDATION: Return to annual mammography. Return to annual mammography. Mammo Location: [facility], [address] [place] [address], [id number], . 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 Typically benign parenchymal asymmetries are stable Left: No suspicious masses, microcalcifications or areas of architectural distortion. Typically benign parenchymal asymmetries are stable. Biopsy marker is grossly stable in appearance from prior exam. BREAST DENSITY: D - The breasts are extremely dense which lowers the sensitivity of mammography. EXAM: LEFT BREAST TARGETED ULTRASOUND EVALUATION HISTORY: Follow-up for biopsy-proven phyllodes tumor at 2:00 TECHNIQUE: Ultrasonographic examination is performed using a linear array transducer. Targeted left breast ultrasound at 2:00 for follow-up. FINDINGS: At 2:00, a hypoechoic solid mass is again identified measuring 0.6 x 0.4 x 0.6 cm which is decreased in size from prior examination and contains a biopsy clip. Procedure Note Moisés Dobson MD - 10/18/2024 BILATERALDIGITAL DIAGNOSTIC 3D MAMMOGRAPHY HISTORY: Follow-up for left breast biopsy-proven benign phyllodes tumor at2:00 COMPARISON: Mammograms dating back to 09/10/2020 and ultrasound breastfrom 10/15/2022 Technique: Bilateral CC and MLO full field views, bilateral exaggerated cc FINDINGS: Right: No suspicious masses, microcalcifications or areas of architecturaldistortion. Typically benign parenchymal asymmetries are stable Left: No suspicious masses, microcalcifications or areas of architecturaldistortion. Typically benign parenchymal asymmetries are stable. Biopsymarker is grossly stable in appearance from prior exam. BREAST DENSITY: D - The breasts are extremely dense which lowers thesensitivity of mammography. EXAM: LEFT BREAST TARGETED ULTRASOUND EVALUATION HISTORY: Follow-up for biopsy-proven phyllodes tumor at 2:00 TECHNIQUE: Ultrasonographic examination is performed using a linear arraytransducer. Targeted left breast ultrasound at 2:00 for follow-up. FINDINGS: At 2:00, a hypoechoic solid mass is again identified measuring 0.6 x 0.4 x0.6 cm which is decreased in size from prior examination and contains abiopsy clip. IMPRESSION: 1. 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 Extremely dense breast parenchyma Findings and recommendations were conveyed to the patient. BI-RADS CATEGORY: 2 - BENIGN RECOMMENDATION: Return to annual mammography. Return to annual mammography. Mammo Location: [facility], [address] [place] [address], [phone], . -------- FINAL REPORT -------- Dictated By: Moisés Dobson Dictated Date: 10/18/2024 15:23 ET Assigned Physician: Moisés Dobson Reviewed and Electronically Signed By: Moisés Dobson Signed Date: 10/18/2024 15:30 ET Workstation ID: [id number] Transcribed By: Self Edit Transcribed Date: 10/18/2024 15:28 ET us Dariana Marjorie CNM IMG US PROCEDURES F inal Result * MG Mammo Digital Diagnostic w Ramo bilat (10/18/2024 3:20 PM EDT) Anatomical Region Laterality Modality Breast Bilateral Mammography 10/18/2024 3:23 PM EDT Impressions 10/18/2024 3:30 PM EDT 1. 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 Extremely dense breast parenchyma Findings and recommendations were conveyed to the patient. BI-RADS CATEGORY: 2 - BENIGN RECOMMENDATION: Return to annual mammography. Return to annual mammography. Mammo Location: [facility], [address] [place] [address], [phone], . 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 Typically benign parenchymal asymmetries are stable Left: No suspicious masses, microcalcifications or areas of architectural distortion. Typically benign parenchymal asymmetries are stable. Biopsy marker is grossly stable in appearance from prior exam. BREAST DENSITY: D - The breasts are extremely dense which lowers the sensitivity of mammography. EXAM: LEFT BREAST TARGETED ULTRASOUND EVALUATION HISTORY: Follow-up for biopsy-proven phyllodes tumor at 2:00 TECHNIQUE: Ultrasonographic examination is performed using a linear array transducer. Targeted left breast ultrasound at 2:00 for follow-up. FINDINGS: At 2:00, a hypoechoic solid mass is again identified measuring 0.6 x 0.4 x 0.6 cm which is decreased in size from prior examination and contains a biopsy clip. Procedure Note Moisés Dobson MD - 10/18/2024 BILATERALDIGITAL DIAGNOSTIC 3D MAMMOGRAPHY HISTORY: Follow-up for left breast biopsy-proven benign phyllodes tumor at2:00 COMPARISON: Mammograms dating back to 09/10/2020 and ultrasound breastfrom 10/15/2022 Technique: Bilateral CC and MLO full field views, bilateral exaggerated cc FINDINGS: Right: No suspicious masses, microcalcifications or areas of architecturaldistortion. Typically benign parenchymal asymmetries are stable Left: No suspicious masses, microcalcifications or areas of architecturaldistortion. Typically benign parenchymal asymmetries are stable. Biopsymarker is grossly stable in appearance from prior exam. BREAST DENSITY: D - The breasts are extremely dense which lowers thesensitivity of mammography. EXAM: LEFT BREAST TARGETED ULTRASOUND EVALUATION HISTORY: Follow-up for biopsy-proven phyllodes tumor at 2:00 TECHNIQUE: Ultrasonographic examination is performed using a linear arraytransducer. Targeted left breast ultrasound at 2:00 for follow-up. FINDINGS: At 2:00, a hypoechoic solid mass is again identified measuring 0.6 x 0.4 x0.6 cm which is decreased in size from prior examination and contains abiopsy clip. IMPRESSION: 1. 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 Extremely dense breast parenchyma Findings and recommendations were conveyed to the patient. BI-RADS CATEGORY: 2 - BENIGN RECOMMENDATION: Return to annual mammography. Return to annual mammography. Mammo Location: [facility], [address] [place] [address], [phone], . -------- FINAL REPORT -------- Dictated By: Moisés Dobson Dictated Date: 10/18/2024 15:23 ET Assigned Physician: Moisés Dobson Reviewed and Electronically Signed By: Moisés Dobson Signed Date: 10/18/2024 15:30 ET Workstation ID: [id number] Transcribed By: Self Edit Transcribed Date: 10/18/2024 15:28 ET Jazz Amador CNM IMG BI PROCEDURES F inal Result * Endoscopy, small bowel with ileum (10/04/2024 3:13 PM EDT) Anatomical Region Laterality Modality Endoscopy Historical Provider GI~PROCEDURE ORDERABLES F inal Result * POC , urine manually resulted (2024 4:06 PM EDT) Pathologist [facility] HCG, Ur POC Negative Negative POC hCG Int QC Pass? Yes Yes Urine Urine specimen obtained by clean catch procedure / Unknown 2024 4:06 PM EDT Mirta Sampson CNM POINT OF CARE TEST ENTER/EDIT ORDERABLES Final Result * Hepatitis C antibody (06/22/2024 3:46 PM EDT) Pathologist [facility] Hepatitis C Antibody Negative Negative LAB CHEMISTRY METHOD 06/22/2024 5:39 PM EDT [facility] Blood Venous blood specimen / Unknown Venipuncture / Unknown 06/22/2024 3:46 PM EDT 06/22/2024 4:11 PM EDT [facility] LAB BLOOD ORDERABLES Final Re sult Performing Organization Address City/[facility]/ZIP Co de Phone Number [facility] [address] [place] [address], [place] [phone] * HIV 1,2 antibody, p24 antigen with reflex to differentiation (06/22/2024 3:46 PM EDT) HIV Combo AB/AG Negative Negative LAB CHEMISTRY METHOD 06/22/2024 5:40 PM EDT [facility] Blood Venous blood specimen / Unknown Venipuncture / Unknown 06/22/2024 3:46 PM EDT 06/22/2024 4:11 PM EDT Narrative [facility] - 06/22/2024 5:40 PM EDT This assay is a 4th generation assay allowing for earlier detection of HIV infection by detecting the presence of the HIV-1 p24 antigen as well as the traditional antibodies to HIV type 1 (including group O) and type 2. Use of a 4th generation assay is the current CDC recommendation for HIV screening. [facility] BLOOD ORDERABLES Final Re sult Performing Organization Address [facility] Co de Phone Number [facility] [address] [place] [address], [place] [phone] * HPV with reflex genotype (06/22/2024 3:01 PM EDT) [facility] Signature HPV Negative Negative LAB MICROBIOLOGY METHOD 06/23/2024 1:21 PM EDT [facility] Brushing/Spatula Cervix uteri structure / Unknown 06/22/2024 3:01 PM EDT 06/23/2024 4:55 AM EDT [facility] MOLECULAR DIAGNOSTICS ORD ERABLES Final Result Performing Organization Address City/[facility]/ZIP Co de Phone Number [facility] [address] [place] [address], [place] [phone] from Last 3 Months or Most Recently Relevant to Health Maintenance Insurance [employer] [address] [place] [address] Care Teams Summer Counselor Relationship Specialty Start Date End Date Bryan Estrella MD [address] [place] [address] PCP - General Internal Medicine 01/20/24
--- OUTSIDE RECORDS SUMMARY | 2024-10-18 16:04 | XMS_ITS | Clinical Summary ---
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
--- OUTSIDE RECORDS SUMMARY | 2024-10-18 16:04 | XMS_ITS | Clinical Summary ---
Author Organization [facility] Address [address] [place] [address] Care Team Providers Care Research Project Coordinator Name Role Phone Bryan Estrella MD Primary Care Provider [phone] Allergies Active Allergy Reactions Criticality Noted Date [...] age to complete this topic Care Teams Research Project Coordinator Relationship Specialty Start Date End Date Bryan Estrella MD [address] [place] [phone] PCP - General Internal Medicine 07/31/20
--- OUTSIDE RECORDS SUMMARY | 2024-10-18 16:04 | XMS_ITS | Clinical Summary ---
Author Organization [address] Address [address] [place] [phone] Care Team Providers Care Fringe Weaver Name Role Phone Bryan Estrella MD Primary Care Provider Allergies Active Allergy Reactions Criticality Noted Date Comments Amitriptyline Unknown Medium 08/10/2024 Urinary Retention Duloxetine Hallucinations Medium 08/10/2024 Fentanyl Arrhythmia High 08/10/2024 Active Problems Problem Noted Date Diagnosed Date COVID-19 long hauler 08/10/2024 Encounters Date Type Department Care Team Description 08/24/2024 Telephone [facility] at [address] [place] [address] Hedy Pastrana MD Referral 08/11/2024 Scanned Document [facility] at [address] [place] [address] Hedy Pastrana MD 08/11/[address] [facility] at [address] [place] [address] Angela Ricketts LCSW 08/10/2024 3:00 PM EDT Office Visit [facility] at [address] [place] [address] Bryan Estrella MD Sanders, Lisa, MD COVID-19 long hauler manifesting chronic concentration deficit (Primary Dx); COVID-19 long hauler manifesting chronic decreased mobility and endurance; 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; Abnormal loss of weight; Appetite absent; Cognitive changes 08/10/2024 2:00 PM EDT - 08/10/2024 11:59 PM EDT Hospital Encounter [facility] [address] [facility] [address] [place] [address] Bryan Estrella MD Sanders, Lisa, MD Discharge Disposition: Home or Self Care 08/03/2024 [facility] at [address] [facility] [address] [place] [address] Deanne Akins LCSW from Last 3 Months Social History Tobacco Use Types Packs/Day Years Used Date Smoking Tobacco: Never Smokeless Tobacco: Never Tobacco Cessation:Counseling Given: Not Answered Alcohol Use Standard Drinks/Week Comments Never 0 (1 standard drink = 0.6 oz pur e alcohol) [facility] Utilities Answer Date Recorded In the [...] your living situation today? I have a [facility] place to live 08/11/2024 Housing Stability Not [...] Upcoming Encounters Date Type Department Care Team ([facility] st Contact Info) Description 11/07/2024 3:00 PM EDT Follow Up [facility] at [address] [facility] [address] [place] [address] Junior Johnson PA [address] [facility] [address] [place] [address] Health Maintenance Due Date Last Done Comments [...] GENERIC COMMERCIAL GENERIC COMMERCIAL GENERIC Care Teams Fringe Weaver Relationship Specialty Start Date End Date Bryan Estrella MD [address] [place] [phone] PCP - General Internal Medicine 01/12/24
== END 2024-10-18 16:03 | disposition home or self-care (01) ==
LOC: HO.HMGCX 16:02
PROVIDERS: PCP Internal Medicine; Visit Provider Internal Medicine Rheumatology
DX: M54.2 Cervicalgia (principal); M54.50 Low back pain, unspecified; M25.511 Pain in right shoulder; M25.512 Pain in left shoulder; M79.671 Pain in right foot; M79.672 Pain in left foot; M79.641 Pain in right hand; M79.642 Pain in left hand; M25.551 Pain in right hip; M25.552 Pain in left hip
CPT/HCPCS: 72040; 72100; 73030; 73130; 73522; 73630

== ENCOUNTER → 2024-10-18 16:05 | Outpatient (BNV) | payer OTHER, SELFPAY | PROVIDERS: PCP Internal Medicine; Visit Provider Radiology Diagnostic Radiology | DX: M16.0 Bilateral primary osteoarthritis of hip (principal); M43.12 Spondylolisthesis, cervical region; M41.126 Adolescent idiopathic scoliosis, lumbar region; M19.011 Primary osteoarthritis, right shoulder; M25.841 Other specified joint disorders, right hand; M79.673 Pain in unspecified foot | CPT/HCPCS: 72040; 72100; 73030; 73130; 73522; 73630 ==

== ENCOUNTER 2024-11-09 08:07 | Outpatient (AMB) | payer OTHER, SELFPAY ==
--- OUTSIDE RECORDS SUMMARY | 2024-11-07 15:00 | XMS_ITS | Encounter Summary ---
Author Organization [facility] Address [address] [place] [id number] Care Team Providers Care Merchandise Stocker Name Role Phone Bryan Estrella MD Primary Care Provider [phone] Reason for Visit * Reason Comments Follow-up Encounter Details Date Type Department Care Team ([facility] st Contact Info) Description 11/07/2024 3:00 PM EDT Follow Up [facility] 200 [facility] [address] [place], [place] [phone] Hedy Pastrana MD 200 [facility] [address] [place] [phone] Junior Johnson PA 200 [facility] [address] [place] [address] 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 [facility] 08/11/2024 Housing Stability Not on file 08/11/2024 Interpersonal Safety Answer Date Record ed Is there anyone in your life that is hurting or threatening you in anyway? no 11/07/2024 Physical Indicators of Abuse No evidence of phys ical abuse 11/07/2024 Comments Unknown Sex and Gender Information Value Date Recorded Sex Assigned at Female 08/10/2024 2:42 PM EDT Legal Sex Female 5:36 AM EST Gender Identity Not on file Sexual Orientation Don't know 08/10/2024 2: 42 PM EDT documented as of this encounter Last Filed Vital Signs Vital Sign Reading Time Taken Comments Blood Pressure 111/70 11/07/2024 2:41 PM EDT Pulse 98 11/07/2024 2:41 PM EDT Temperature 36.7 C (98.1 F) 11/07/2024 2:41 PM EDT Respiratory Rate 16 11/07/2024 2:41 PM EDT Oxygen Saturation 100% 11/07/2024 2:41 PM EDT Inhaled Oxygen Concentration - - Weight 58.7 kg (129 lb 4.8 oz) 11/07/2024 2:41 P M EDT Height 167.6 cm (5' 6 ) 11/07/2024 2:41 PM EDT Body Mass Index 20.87 11/07/2024 2:41 PM EDT documented in this encounter Plan of Treatment Upcoming Encounters Date Type Department Care Team (Late st Contact Info) Description 03/19/2025 3:00 PM EST Follow Up [facility] at 200 [facility] [address] [place] [address] Hedy Pastrana MD 200 [facility] [address] [place] [phone] documented as of this encounter Visit Diagnoses Diagnosis Post-acute sequelae of COVID-19 (PASC)- Primary Abnormal loss of weight Loss of weight 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
--- OUTSIDE RECORDS SUMMARY | 2024-11-07 15:30 | XMS_ITS | Encounter Summary ---
Demographics Address [address] [place] [address] Mobile Phone Email Address Preferred Language Greenlandic Marital Status Unknown Christian Affiliation Unknown Race Unknown Ethnic Group Not or Lati no Author Organization [facility] Address [address] [place] [phone] Care Team Providers Care Journalism Professor Name Role Phone Bryan Estrella MD Primary Care Provider Encounter Details Date Type Department Care Team (Late st Contact Info) Description 11/07/2024 3:30 PM EDT Social Work Mark [facility] at 200 [facility] 200 [place], [place] [phone] Hedy Pastrana MD 200 [facility] 204 [place] [address] Social History Tobacco Use Types Packs/Day Years Used Date Smoking Tobacco: Never Smokeless Tobacco: Never Alcohol Use Standard Drinks/Week Comments Never 0 (1 standard drink = 0.6 oz pur e alcohol) [facility] Utilities Answer Date Recorded In the [...] your living situation today? I have a [facility] to live 08/11/2024 Housing Stability Not [...] PM EDT documented as of this encounter Progress Notes * Angela Ricketts LCSW - 11/07/2024 3:30 PM EDT Images from the original note were not included. SOCIAL WORK NOTE Patient Name: Chely Guerrero Date of : 1980 Medical Social Work Follow Up Flowsheet Row Most Recent Value Admission Information Document Type Progress Note (For Inpatient/ED Only) Prior psychosocial assessment has been documented within this hospitalization No (For Inpatient/ED Only) Prior psychosocial assessment has been documented within 30 days of this hospitalization No Reason for Current Social Work Involvement Support/Coping Source of Information Patient, Medical Team Medical Team Comment Junior ARIZA Record Reviewed Yes Level of Care Ambulatory What medium(s) of communication were used with patient/family/caregiver? [id number] / In-Person Psychosocial issues requiring intervention Folow up emotional support Psychosocial interventions 30 minutes spent face to face with Ms. Guerrero . I had been asked to meet with her by Junior ARIZA as Ms. Guerrero was very tearful after her follow up visit today . Ms. Guerrerois known to me from her first visit at [facility] . Today Ms. Guerrero was very tearful stating I want my brain back . I provided empathy , emotional support and validation as Ms. Guerrero expressed her sadness and grief re her current inability to do the things she used to do . She had been in graduate school but had to stop due to her cognitive impairment . She also said that she gets angry at people who think she is just lazy . I provided strategies for her to manage people , in particular her mother , who lack knowledge re how debilitating long vika can be. I reiterated that as she has been approved for SSD that speaks to the level of her disability . I also validated her griefat not being who she used to be while also exploring that it is still unknown how much more progress more she will make in the future . Ms. Guerrero verbalizes that she has no purpose or meaning in her life now . I explored any SI or plan and she stated that she has no current SI or plan . I did briefly explore that there are ways to find meaning and purpose in her life when she is ready . Ms. Guerrerohas a therapist who she sees weekly . I asked Ms. Guerrero if I could speak with her therapist as I was concerned that she is depressed and Ms. Guerrero gave me verbal permission to call her therapist , Betty Gaviria ([phone] ) at [facility]. I also discussed with Ms. Guerrero attending the Long Covid Support Group . Ms. Guerrero stated that she was interested and I rpovide her with the information re the next meeting which is November 16 at 6 pm via Zoom . Collaborations Discussed with ANNITA Johnson Specific referrals to enhance community supports (include existing and new resources) Long Covid Support Group Handoff Required? No Social Work will take lead to arrange post-acute care services and continue work with the care teamas patient progresses towards discharge No Next Steps/Plan (including hand-off): Will speak with Ms. Guerrero's therapist Betty Gaviria when she returns my call. Social work intervention completed . Was the authorized person (conservator, legal guardian, and/or healthcare insurance follow up representative) notified?-- [N/A] Signature: Angela Ricketts LCSW Contact Information: [phone] documented in this encounter Plan of Treatment Upcoming Encounters Date Type Department Care Team ([facility] Contact Info) Description 03/19/2025 3:00 PM EST Follow Up [facility] 200 [facility] 200 [place], [place] [phone] Hedy Pastrana MD 200 [facility] [address] [place] [phone] documented as of this encounter Visit Diagnoses Not on filedocumented in this encounter Care Teams Journalism Professor Relationship Specialty Start Date End Date Bryan Estrella MD [address] [place] [phone] PCP - General Internal Medicine 01/12/24 documented as of this encounter
--- OUTSIDE RECORDS SUMMARY | 2024-11-08 13:00 | XMS_ITS | Encounter Summary ---
Author Organization [facility] Address [address] [place] [address] Care Team Providers Care Sewer Pipe Press Operator Name Role Phone Bryan Estrella MD Primary Care Provider [phone] Reason for Visit * Reason Comments Injections DEPO Encounter Details Date Type Department Care Team ([facility] st Contact Info) Description 11/08/2024 1:00 PM EDT Office Visit Obstetrics & Gynecology - [address] [phone] Kiersten Denton, [facility] [address] [place] [phone] Surveillance of contraceptive injection (Primary Dx) Social History Tobacco Use Types Packs/Day Years [...] file Not on file Not on file documented as of this encounter Last Filed Vital Signs Vital Sign Reading Time Taken Comments Blood Pressure 117/62 11/08/2024 1:35 PM EDT Pulse 91 11/08/2024 1:35 PM EDT Temperature - - Respiratory Rate - - Oxygen Saturation - - Inhaled Oxygen Concentration - - Weight 54.2 kg (119 lb 6.4 oz) 11/08/2024 1:35 P M EDT Height 167.6 cm (5' 6 ) 11/08/2024 1:35 PM EDT Body Mass Index 19.27 11/08/2024 1:35 PM EDT documented in this encounter Progress Notes * Juanjose Peralta MA - 11/08/2024 1:00 PM EDT PT HERE FOR DEPO Depo-Provera administered. Medication is: Patient supplied-LEFT ARM No problems noted Signs and symptoms of adverse reactions discussed. Patient instructed to call back with any concerns. Patient instructed when to return for next visit. 02/05/25 documented in this encounter Plan of Treatment Upcoming Encounters Date Type Department Care Team (Late st Contact Info) Description 11/14/2024 2:30 PM EDT Appointment [facility] [address] [place] [phone] 02/05/2025 1:00 PM EST Clinical Support Obstetrics & Gynecology - [address] [phone] 02/06/2025 3:00 PM EST Office Visit [facility] Hematology Oncology [address] [place] [phone] Heath Whitehead MD [address] [place] [phone] documented as of this encounter Visit Diagnoses Diagnosis Surveillance of contraceptive injection- Primary documented in this encounter Administered Medications Active Administered Medications - up to 3 most recent administrations Medication Order MAR Action Action Date Dose Rate Site medroxyPROGESTERone (DEPO-PROVERA) injection 150 mg 150 mg, intramuscular, Every 3 months, First dose on Wed08/14/24 at 1400, For 4 doses, SHAKE WELL HAZARDOUS Drug Precautions - Low Risk (Category A/NIOSH Group 3) Reproductive Risk Only: - Double pair of ASTM standard D6978 certified chemotherapy gloves - Eye protection (goggles or face shield) required only with a potential for facial contact (i.e. concern for spitting or vomiting of the dose during or after administration) - Staff at reproductive risk (actively trying to conceive, or may be become , and ): Chemotherapy gownIndications:Surveillance of contraceptive injection Given 11/08/2024 1:25 PM EDT 150 mg Left Deltoid Given 08/14/2024 1:45 PM EDT 150 mg Le ft Deltoid documented in this encounter Care Teams Sewer Pipe Press Operator Relationship Specialty Start Date End Date Bryan Estrella MD [address] [place] [address] PCP - General Internal Medicine 01/20/24 documented as of this encounter
--- NOTE | 2024-11-09 08:10 | A.OFFVIS_ITS ---
Vital Signs 11/09/24 08:11 Height 5 ft 6 in Weight 129 lb BMI 20.8 BP 100/80 Blood Pressure Location Lt brachial Position Sitting Pulse 96 Pulse Source Pulse Oximeter Pulse Oximetry (%) 97 Oxygen Delivery Method Room Air Intake Visit Reasons: 1 month Intake Note: Patient presents for joint pain. Accompanied by: Self / Same As Patient Allergies penicillin V Allergy (Unknown, Verified 11/09/24 08:11) Rash Sulfa (Sulfonamide Antibiotics) Allergy (Unknown, Verified 11/09/24 08:11) Rash HPI HPI 1 month: Details: Worse pain in the morning in all her joints. She took oxycodone 15mg (half of normal morning dose). Morning stiffness is all day. Worse pain is in her hands, neck and her knees. She has difficulty walking. She has been experiencing paraesthesia in her bilateral hands and feet for 5 years. Progressively worsening. She has thyroid testing done by primary care and reports that it has been negative. She does not recall having testing for diabetes. She has had EMG of upper extremities prior to pandemic. Hx narcolepsy. She wakes up 2-3 times at night. Sometimes she gets up. She naps for 2 hours during the day. [facility] Medical History Superficial venous thrombosis of right upper extremity Major depressive disorder Reactive airway disease Hematuria Fibromyalgia Fibroadenoma Esophageal dysmotility GODWIN (generalized anxiety disorder) Dry eye syndrome Chronic back pain Anemia Surgical History H/O lumbosacral spine surgery Family History Mother HTN (hypertension) Social History Patient Tobacco Use Status: Never used Tobacco Physical Exam Vital Signs: Last Vital Signs Pulse 96 11/09/24 08:11 BP 100/80 11/09/24 08:11 Pulse Ox 97 11/09/24 08:11 Oxygen Delivery Method Room Air 11/09/24 08:11 BMI result Body Mass Index 20.8 Const Other: General: Comfortable CVS: RRR Respiratory: clear to auscultation bilaterally. Good respiratory effort Skin: No lesions seen MSK: Tender right 5th MCP, IP, bilateral PIP, left wrist, bilateral shoulders, knees, ankles, MTPs. She has synovitis right 3rd PIP. She has enthesitis with tenderness of bilateral prepatellar region, trochanteric bursa, and Achilles tendons., Shoulder abduction bilateral 90 degrees with limited internal external rotation. Crepitus palpated bilateral shoulders. Limited rotation of bilateral hips and flexion of bilateral knees due to pain. Assessment & Plan Assessment & Plan (1) Multiple joint pain: Comment: 44-year-old patient with narcolepsy, post COVID syndrome presents with chronic polyarthralgias with swelling of her hands and knees worse in the winter months, stiffness, limited range of motion of extremities, paraesthesia of bilateral hands and feet, muscle spasms, proximal muscle weakness of upper extremities and lower extremities with reduced range of motion presents for follow-up for workup. On exam she has multiple tender joints and enthesitis with synovitis of right 3rd PIP. Workup has revealed degenerative arthritis of C-spine, right AC joint, bilateral hips, bilateral hands with interesting findings of periarticular osteopenia suggestive of inflammatory arthritis radiographically. Negative rheumatoid factor/anti CCP antibody/inflammatory markers/muscle enzymes. 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 MRI bilateral hands was ordered for further evaluation of inflammatory arthritis in her hands as x-ray shows both degenerative arthritis and radiographic findings of possible inflammatory arthritis. It was denied. I have a peer to peer schedule at noon. If MRI reveals subclinical inflammatory arthritis, it will electronic data interchange specialist with addition of DMARD therapy. Code(s): M25.50 - Pain in unspecified joint Category: Medical Plan: Appealing MRI denial hands Labs ordered with inflammatory markers, CBC, HLA B27 Bilateral upper extremity and lower extremity EMG is ordered for further evaluation of weakness and neuropathy. I have also ordered a lab workup to evaluate her for metabolic neuropathy Bilateral knee x-rays ordered Continue occupational therapy for hand strengthening Start PT November 24 for strengthening of extremities and to improve neck range of motion Return to clinic in 1-2 months to review results (2) Neuropathy involving both lower extremities: Code(s): G57.93 - Unspecified mononeuropathy of bilateral lower limbs Category: Medical Plan: See above (3) Knee pain, bilateral: Code(s): M25.561 - Pain in right knee; M25.562 - Pain in left knee Category: Medical Qualifiers: Chronicity: chronic Qualified Code(s): M25.561 - Pain in right knee; M25.562 - Pain in left knee; G89.29 - Other chronic pain Plan: See above Orders: Orders Erythrocyte Sedimentation Rate Today M25.50 - Pain in unspecified joint NE electromyogram (EMG) Today G57.93 - Unspecified mononeuropathy of bilateral lower limbs, M62.81 - Muscle weakness (generalized), M79.601 - Pain in right arm, M79.602 - Pain in left arm, R20.2 - Paresthesia of skin C Reactive Protein Today M25.50 - Pain in unspecified joint TSH reflex Free T4 Today G57.93 - Unspecified mononeuropathy of bilateral lower limbs Hemoglobin A1c Today G57.93 - Unspecified mononeuropathy of bilateral lower limbs XR Knee Pascual 3V Today M25.561 - Pain in right knee, M25.562 - Pain in left knee NE nerve conduction velocity Today G57.93 - Unspecified mononeuropathy of bilateral lower limbs, M62.81 - Muscle weakness (generalized), M79.601 - Pain in right arm, M79.602 - Pain in left arm, R20.2 - Paresthesia of skin Medications: New meloxicam With food 15 mg PO DAILY 30 tabs 2RF Coding Level of Care Code Est Pt Level 4 (67521) Complex EM visit Add On G2211 Diagnoses Multiple joint pain M25.50 Neuropathy involving both lower extremities G57.93 Chronic pain of both knees M25.561; M25.562; G89.29 Chronicity: chronic
[2024-11-09 08:11] VITALS: BP 100/80; PULSE 96; O2SAT 97; BMI 20.8
--- OUTSIDE RECORDS SUMMARY | 2024-11-09 08:24 | XMS_ITS | Clinical Summary ---
Author Organization [facility] Address [address] [place] [phone] Care Team Providers Care Mixing Pan Tender Name Role Phone Bryan Estrella MD Primary [...] to complete this topic Insurance Care Teams Mixing Pan Tender Relationship Specialty Start Date End Date Bryan Estrella MD [address] [place] [address] PCP - General 03/20/24
--- OUTSIDE RECORDS SUMMARY | 2024-11-09 08:24 | XMS_ITS | Encounter Summary ---
Author Organization [facility] Address [address] [place], [place] [phone] Care Team Providers Care Director Stars Name Role Phone Bryan Estrella MD Primary Care Provider Encounter Details Date Type Department Care Team ([facility] Contact Info) Description 03/20/2024 Scanned Document [facility] Rheumatology [address] [address] Clemente Atkinson, DO [address] [address] Social History Tobacco Use Types Packs/Day Years Used Date Smoking Tobacco: Never Assessed Comments Unknown Sex and Gender Information Value Date Recorded Sex Assigned at Not on file Legal Sex Female 12:26 PM EST Gender Identity Not on file Sexual Orientation Not on file documented as of this encounter Plan of Treatment Not on file documented as of this encounter Visit Diagnoses Not on filedocumented in this encounter Care Teams Director Stars Relationship Specialty Start Date End Date Bryan Estrella MD [address] [place] [phone] PCP - General 03/20/24 documented as of this encounter
--- OUTSIDE RECORDS SUMMARY | 2024-11-09 08:24 | XMS_ITS | Clinical Summary ---
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); Abnormal loss of weight; 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; COVID-19 long hauler manifesting chronic decreased mobility and endurance; COVID-19 long hauler manifesting chronic concentration deficit 11/02/2024 [facility] [address] [place] [address] [place] [address] Angela Ricketts LCSW 08/24/2024 Telephone [facility] at [address] [facility] 200 [place] [address] Hedy Pastrana MD Referral 08/11/2024 Scanned Document [facility] at [address] [place] [address] 200 [place] [address] Hedy Pastrana MD 08/11/2024 Social Work [facility] at [address] [place] [address] [address] [place] [address] Angela Ricketts LCSW 08/10/2024 3:00 PM EDT Office Visit [facility] at [address] [facility] 200 [place] [address] Bryan Estrella MD Sanders, Lisa, MD COVID-19 long hauler manifesting chronic concentration deficit (Primary Dx); COVID-19 long hauler manifesting chronic decreased mobility and endurance; 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; Abnormal loss of weight; Appetite absent; Cognitive changes 08/10/2024 2:00 PM EDT - 08/10/2024 11:59 PM EDT Hospital Encounter [facility] at [address] [facility] 200 [place] [address] Bryan Estrella MD Sanders, Lisa, MD Discharge Disposition: Home or Self Care from Last 3 Months Social History Tobacco Use Types Packs/Day Years Used Date Smoking Tobacco: Never Smokeless Tobacco: Never Tobacco Cessation:Counseling Given: Not Answered Alcohol Use Standard Drinks/Week Comments Never 0 (1 standard drink = 0.6 oz pur e alcohol) [facility] Utilities Answer Date Recorded In the [...] your living situation today? [facility] 08/11/2024 Housing Stability Not [...] Mass Index 20.87 11/07/2024 2:41 PM EDT Plan of Treatment Upcoming Encounters Date Type Department Care Team (Late st Contact Info) Description 03/19/2025 3:00 PM EST Follow Up [facility] at [address] [facility] 200 [place] [address] Hedy Pastrana MD 200 [facility] 204 [place] [address] Health Maintenance Due Date Last Done Comments Cervical cancer screening 08/08/2000 Lipid disorder screening 2019 Colon cancer screening, Colonoscopy 08/08/2024 Diabetes screening 08/08/2024 Covid-19 vaccine series ( season) 2024 02/25/2021, 01/06/2021, 07/11/2020, Additional history exists Influenza vaccine 11/06/2024 03/17/2024, , 01/13/2017, Additional history exists Breast cancer screening 10/18/2026 10/18/2024, 10/18 Tetanus adult (Td q 10,TDAP once) 01/13/2027 01/13/2017 RSV Immunization (1 - 1-dose 75+ series) 08/08/2054 HIV screening Completed 06/22/2024 Hepatitis C screening Completed 06/22/2024 Meningococcal B Vaccine Aged Out No l onger eligible based on patient's age to complete this topic Meningococcal Vaccine Aged Out No emili sundeep eligible based on patient's age to complete this topic Pneumococcal Vaccine (2 - 49 years) Aged Out No longer eligible based on patient's age to complete this topic Insurance COMM[employer]CIAL [employer]IC COMMERCIAL GENERIC * Guarantor: Chely Guerrero Account Type Relation to Patient Date of Phone Billing Address Personal/Family Self 1980 [address] [place] [address] [employer] Care Teams Gun Tester Relationship Specialty Start Date End Date Bryan Estrella MD [address] [phone] PCP - General Internal Medicine 01/12/24
--- OUTSIDE RECORDS SUMMARY | 2024-11-09 08:24 | XMS_ITS | Encounter Summary ---
Demographics Address [address] [place] [address] [address] [place] [address] Mobile Phone Email Address Preferred Language Korean Marital Status Unknown Anabaptism Affiliation Unknown Race Unknown Ethnic Group Not or Lati no Author Organization [facility] Address [address] [place] [phone] Care Team Providers Care Accounts Receivable Manager Name Role Phone Bryan Estrella MD Primary Care Provider [phone] Encounter Details Date Type Department Care Team (Late st Contact Info) Description 08/11/2024 Scanned Document [facility] at [address] [facility] 200 [place] [address] Hedy Pastrana MD 200 [facility] 204 [place] [address] Social History Tobacco Use Types Packs/Day Years Used Date Smoking Tobacco: Never Smokeless Tobacco: Never Alcohol Use Standard Drinks/Week Comments Never 0 (1 standard drink = 0.6 oz pur e alcohol) [facility] Utilities Answer Date Recorded In the past [...] your living situation today? I have a [facility]ine place to live 08/11/2024 Housing Stability [...] PM EDT documented as of this encounter Plan of Treatment Upcoming Encounters Date Type Department Care Team (Late st Contact Info) Description 03/19/2025 3:00 PM EST Follow Up [facility] at [address] [facility] 200 [place] [address] Hedy Pastrana MD 200 [facility] 204 [place] [id number] documented as of this encounter Visit Diagnoses Not on filedocumented in this encounter Care Teams Accounts Receivable Manager Relationship Specialty Start Date End Date Bryan Estrella MD [address] [place] [phone] PCP - General Internal Medicine 01/12/24 documented as of this encounter
--- OUTSIDE RECORDS SUMMARY | 2024-11-09 08:24 | XMS_ITS | Clinical Summary ---
Author Organization [facility] Address [address] [place] [phone] Phone Care Team Providers Care Ship'S Engineer Name Role Phone Bryan Estrella MD Primary Care Provider [phone] Allergies Active Allergy Reactions Criticality Noted Date Comments Bee Pollen 07/31/2020 Fentanyl 06/20/2024 Other 09/07/2017 Penicillins 04/01/2010 Sulfa (Sulfonamide Antibiotics) Hives High 11/07 Medications hydrocortisone (ANUSOL-HC) 2.5 % rectal cream Apply 1 Applicator topically 3 times daily. 12/06/19 22 Active triamcinolone (KENALOG) 0.1 % cream Apply to affected area BID x 2 weeks 09/20/19 20 Active pregabalin (LYRICA) 150 mg capsule Take 200 mg by mouth 2 (two) times a day. Max Daily Amount: 400 mg 07/19/19 21 Active magnesium oxide (MAG-OX) 400 mg magnesium tablet Take 1 tablet (400 mg total) by mouth 1 (one) time each day. 04/16/19 22 Active cholecalciferol (VITAMIN D-3) 25 mcg (1,000 unit) tablet Take 1 tablet (1,000 Units total) by mouth 1 (one) time each day. 07/18/19 21 Active ibuprofen (ADVIL,MOTRIN) 800 mg tablet Take 1 tablet (800 mg total) by mouth every 8 (eight) hours if needed for moderate pain or mild pain. 04/16/19 22 Active loratadine (CLARITIN) 10 mg tablet Take 1 tablet (10 mg total) by mouth 2 (two) times a day. 04/16/19 22 Active lidocaine (LIDODERM) 5 % patch Place 1 Patch onto the skin every 24 hours. 04/16/19 22 Active albuterol 2.5 mg /3 mL (0.083 %) nebulizer solution Inhale 3 mL (2.5 mg total) by mouth every 4 (four) hours if needed for wheezing. 03/21/19 22 Active albuterol HFA (PROAIR HFA ; PROVENTIL HFA ; VENTOLIN HFA) 90 mcg/actuation inhaler Inhale 2 puffs by mouth every 4 (four) hours if needed for wheezing (Cough). 03/21/19 22 Active tretinoin (RETIN-A) 0.05 % cream Apply pea sized amount QHS 06/19/19 21 Active methylphenidate (RITALIN) 5 mg tablet TAKE ONE TABLET BY MOUTH IN THE MORNING AND ONE TABLET AT NOON 02/05/20 21 Active diclofenac (VOLTAREN) 1 % topical gel Apply 2 g topically 2 times daily. Do not take with ibuprofen 11/21/19 21 Active hydrocortisone (WESTCORT) 0.2 % cream Apply to affected areas sparingly BID as needed, avoid skin creases or face 10/26/19 21 Active omeprazole (PriLOSEC) [address] capsule Take 1 capsule (40 mg total) by mouth 1 (one) time each day in the morning. 07/11/19 21 Active azelastine (ASTELIN) 137 mcg (0.1 %) nasal spray daily. 07/11/19 21 Active vortioxetine (Trintellix) 20 mg tablet Take by mouth. 07/11/19 21 Active triamcinolone (NASACORT) 55 mcg nasal inhaler Administer 1 spray into affected nostril(s) 1 (one) time each day. 04/24/19 21 Active aluminum-magnes ium hydroxide 200-200 mg/5 mL suspension Take 5 mL by mouth every 6 (six) hours if needed for indigestion. up to 10 days 02/29/20 20 Active fluocinolone and shower cap 0.01 % oil Apply 5 Drops topically three times a week. Apply small amount to scalp at night 3 x week 12/27/19 20 Active lidocaine (Lidocaine Pain Relief) 4 % patch Apply 1 patch topically 1 (one) time each day. 11/28/19 20 Active buPROPion (WELLBUTRIN) 75 mg tablet Take 1 tablet (75 mg total) by mouth 2 (two) times a day. 11/28/19 20 Active reservoir inhalation (INSPIREASE) device Use with inhalers 07/11/19 20 Active TENS unit electrodes 2X2 pad 2 Each by Does not apply route daily. 04/14/19 20 Active heating pads pad 1 Each by Does not apply route daily. Large heating pad for back 04/14/19 20 Active oxyCODONE (OxyCONTIN) 20 mg 12 hr abuse-deterrent tablet 1 Tab daily. 04/01/19 19 Active clonazePAM (KlonoPIN) 0.5 mg tablet Take 1 tablet (0.5 mg total) by mouth 2 (two) times a day if needed. Active carisoprodoL (SOMA) 350 mg tablet Take 1 tablet (350 mg total) by mouth at bedtime. 11/18/19 18 Active white petrolatum-mine ral oiL (Refresh P.M.) 57.3-42.5 % ointment apply 0.5 Inches to the eye at bedtime. Apply 0.5 inches to lower cul de sac 08/18/19 18 Active lifitegrast (Xiidra) 5 % dropperette 1 Drop 2 times daily. 04/07/19 18 Active biotin 1 mg capsule Take 1 Cap by mouth daily. 03/19/19 18 Active fluticasone propionate (FLONASE) 50 mcg/actuation nasal spray 2 sprays to each nostril daily 01/14/20 17 Active benzoyl peroxide 5 % gel Apply small amount to affected areas, daily in the morning 01/14/20 17 Active oxyCODONE (ROXICODONE) 30 mg immediate release tablet Take 30 mg by mouth 3 times daily. Active tiZANidine (ZANAFLEX) 4 mg tablet Take 1 Tab by mouth every 6 hours as needed for Muscle spasms. 11/18/19 17 Active polyethylene glycol (PEG) 17 gram/dose oral powder Take 17 g by mouth every 48 hours as needed for Constipation. May repeat dose as needed 12/06/19 14 Active peg 400-hypromellos e-glycerin 1-0.2-0.2 % drops Place 1 Drop into both eyes as needed (when irritated). 06/21/19 14 Active furosemide (LASIX) 20 mg tablet Take 1 tablet (20 mg total) by mouth 1 (one) time each day if needed (swelling). Active escitalopram (LEXAPRO) 10 mg tablet TAKE 1&1/2 TABLETS BY MOUTH ONCE DAILY 12/28/19 24 Active predniSONE (DELTASONE) 10 mg tablet 03/17/19 25 Active Ubrelvy 100 mg tablet TAKE 1/2 ONE-HALF) OR 1 WHOLETABLET AT ONSET OF MIGRAINE. MAY REPEAT IN 2 HOURS 01/21/20 24 Active c-qmgfef-goyfgk ne (NAC) 600 mg capsule Take 1 capsule (600 mg total) by mouth. 12/24/19 24 Active ammonium lactate (AMLACTIN) 12 % cream APPLY TO ARMS, TRUNK AND LEGS TWICE DAILY 04/28/19 25 Active cyanocobalamin (VITAMIN B-12) 1,000 mcg tablet Take 1 tablet (1,000 mcg total) by mouth 1 (one) time each day. 03/10/19 25 Active Emgality Pen 120 mg/mL injection pen INJECT CONTENTS OF 1 PEN UNDER THE SKIN ONCE MONTHLY 02/16/20 24 Active Emgality Pen 120 mg/mL injection pen INJECT CONTENTS OF 1 PEN UNDER THE SKIN ONCE MONTHLY 05/13/19 25 Active glucosamine aviles 2KCl-chondroit 500-400 mg tablet Take 1 tablet by mouth. 04/10/19 25 Active LORazepam (ATIVAN) 1 mg tablet Take 1 tablet (1 mg total) by mouth 2 (two) times a day if needed for anxiety. 05/09/19 25 Active lubiprostone (AMITIZA) 8 mcg capsule Take 1 capsule (8 mcg total) by mouth 2 (two) times a day. 02/16/20 24 Active lubiprostone (AMITIZA) 8 mcg capsule Take 1 capsule (8 mcg total) by mouth 2 (two) times a day. 04/18/19 25 Active GaviLyte-G 236-22.74-6.74 -5.86 gram solution USE DIRECTED BY GI 02/08/20 24 Active riboflavin (VITAMIN B2) 400 mg tablet Take 1 tablet (400 mg total) by mouth 1 (one) time each day. 05/03/19 25 Active rizatriptan (MAXALT) 10 mg tablet TAKE 1/2 TO 1 TABLET BY MOUTH AT ONSET OF MIGRAINE. MAY REPEAT DOSE IN 2 HOURS NEEDED FOR MIGRAINE HEADACHE. MAX 2 TABLETS PER DAY OR 4 T 05/03/19 25 Active terbinafine (LamISIL) 250 mg tablet Take 1 tablet (250 mg total) by mouth 1 (one) time each day. 09/20/19 24 Active fluconazole (DIFLUCAN) 150 mg tablet Take 1 tab by mouth now. May repeat in 72 hours if still symptomatic. 2 tablet 06/24/19 25 Active clotrimazole-be tamethasone (LOTRISONE) 1-0.05 % cream Apply 2 times daily for 5-7 days as needed for itching 15 g 1 06/24/19 25 Active sertraline (ZOLOFT) 50 mg tablet TAKE 1 TABLET BY MOUTH ONCE DAILY. STOP ESCITALOPRAM) 06/23/19 25 Active Drysol Dab-O-Matic 20 % external solution APPLY TOPICALLY DIRECTED ONCE DAILY AT BEDTIME IF NEEDED FOR EXCESSIVE SWEATING 07/30/19 25 Active fezolinetant 45 mg tabletIndicatio ns:Menopausal vasomotor syndrome Take 45 mg by mouth 1 (one) time each day. 90 tablet 1 08/10/19 25 025 Active medroxyPROGESTE Charles 150 mg/mL injection Inject 1 mL (150 mg total) into the shoulder, thigh, or buttocks once every twelve (12) weeks. 1 mL 3 08/10/19 25 Active ARIPiprazole (ABILIFY) 2 mg tablet Take 1 tablet (2 mg total) by mouth 1 (one) time each day. 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 09/25 normal [place]/EGD. Iron infusions. Periodic CBC to be checked [...] Encounters Date Type Department Care Team Description 11/08/2024 1:00 PM EDT Office Visit Obstetrics & Gynecology - [address] [phone] Kiersten Denton CNM Surveillance of contraceptive injection (Primary Dx) 11/02/2024 11:15 AM EDT Office Visit [facility] Hematology Oncology [address] [place] [phone] Heath Whitehead MD Iron deficiency anemia due to chronic blood loss (Primary Dx); Protein S deficiency ([facility]/HCC V24) 11/02/2024 Telephone [facility] Hematology Oncology [address] [place] [phone] Sonal Leslie MA 10/30/2024 1:30 PM EDT Office Visit [facility] Hematology Oncology [address] [place] [phone] Heath Whitehead MD Protein S deficiency ([facility]/HCC V24) (Primary Dx); Anemia, unspecified type 10/18/2024 3:02 PM EDT - 10/18/2024 11:59 PM EDT Hospital Encounter Radiology Department - [address] [phone] Other abnormal and inconclusive findings on diagnostic imaging of breast Discharge Disposition: Home or Self Care 10/18/2024 3:00 PM EDT - 10/18/2024 11:59 PM EDT Hospital Encounter Radiology Department - [address] [phone] Encounter for screening mammogram for malignant neoplasm of breast Discharge Disposition: Home or Self Care 10/04/2024 Billing Patient Not Present Gastroenterology - [address] [phone] Shaji Benavides MD Iron deficiency anemia due to chronic blood loss (Primary Dx) 09/21/2024 Telephone Gastroenterology - [address] [phone] Lui Hardy MD 09/14/2024 Telephone Obstetrics & Gynecology [address] [phone] Mirta Sampson CNM 08/14/2024 1:00 PM EDT Clinical Support Obstetrics & Gynecology [address] [phone] Surveillance of contraceptive injection (Primary Dx) 2024 3:45 PM EDT Consult Obstetrics & Gynecology [address] [phone] Mirta Sampson CNM Menopausal vasomotor syndrome (Primary [...] Date Site/Laterality Comments FLEXIBLE SIGMOIDOSCOPY 07/23/2008 PROCEDURE: [place]Y SIGMOIDOSCOPY FLX DX W/COLLJ SPEC BR/WA IF PFRMD; COMMENT: Normal to 70 cm ESOPHAGOGASTRODUODENOSCOPY 07/23/2008 PROCEDURE: [place]Y EGD TRANSORAL BIOPSY SINGLE/MULTIPLE; COMMENT: Visually normal, duodenal bx: Normal. BACK SURGERY 07/25/2009 PROCEDURE: HISTORICAL BACK SURGERY; COMMENT: Dr. Barillas COLONOSCOPY 09/05/2020 PROCEDURE: HISTORICAL COLONOSCOPY; COMMENT: negative ESOPHAGOGASTRODUODENOSCOPY 09/05/2020 PROCEDURE: [place]Y EGD TRANSORAL BIOPSY SINGLE/MULTIPLE; COMMENT: negative, biopsy pending OTHER SURGICAL HISTORY 10/15/2022 Left PROCEDURE: WY BX BREAST W/DEVICE 1ST LESION STEREOTACTIC GUID [...] DX:Anemia; COMME NT: Dr Whitehead. 09/25 normal [place]/EGD. Iron infusions. Periodic CBC to be checked by PCP Attention deficit 06/04/2019 DX:Attention d eficit Chronic back pain 07/13/2008 DX:Chronic nuar k pain; COMMENT: Surgery- Dr. Barillas 07/25/09; [...] COMMENT: Abilify caused side effects. Psychiatry prescribing, [facility] Vomiting 07/17/2009 DX:Vomiting; COM MENT: 05/15- egd [...] Mother Alive Sister Alive 1,healthy[facility] Social History Tobacco Use Types Packs/Day Years [...] Pulse 91 11/08/2024 1:35 PM EDT Temperature 36.7 C (98 F) 11/02/2024 11:18 AM EDT Respiratory Rate - - Oxygen Saturation 100% 11/02/2024 11:18 AM EDT Inhaled Oxygen Concentration - - Weight 54.2 kg (119 lb 6.4 oz) 11/08/2024 1:35 P M EDT Height 167.6 cm (5' 6 ) 11/08/2024 1:35 PM EDT Body Mass Index 19.27 11/08/2024 1:35 PM EDT Plan of Treatment Upcoming Encounters Date Type Department Care Team (Late st Contact Info) Description 11/14/2024 2:30 PM EDT Appointment [facility] Infusion Center [address] [place] [phone] 02/05/2025 1:00 PM EST Clinical Support Obstetrics & Gynecology - [address] [phone] 02/06/2025 3:00 PM EST Office Visit [facility] Hematology Oncology [address] [place] [phone] Heath Whitehead MD [address] [place] [phone] Health Maintenance Due Date Last Done Comments Hepatitis B Vaccines (1 of 3 - 19+ 3-dose series) 08/08/1998 Pneumococcal Vaccine: Pediatrics (0 to 5 Years) and At-Risk Patients (6 to 49 Years) (1 of 2 - PCV) 08/08/1998 HPV Vaccines (3 - Risk 3-dose series) 08/06/2006 04/06/2006, 02/05/2006 Colorectal Cancer Screening: Colonoscopy 02/14/2022 Social Influencers of Health Screening 02/14/2022 Depression Screening 03/08/2024 COVID-19 Vaccine ( season) 2024 02/25/2021, 01/06/2021, 07/11/2020, Additional history exists Influenza Vaccine (#1) 2024 , 11/17/2017, 11/17/2017, Additional history exists Breast Cancer Screening 10/18/2026 10/19/19, 10/14/2023, 10/14/2023, Additional history exists DTaP,Tdap,and [...] Procedure Name Priority Date/Time Associated Diagnosis Comments CBC WITH AUTO DIFFERENTIAL Routine 10/30/2024 2:20 PM EDT Protein S deficiency (CMS/HCC V24) VITAMIN B12 AND FOLATE Routine 2:20 PM EDT Protein S deficiency (CMS/HCC V24) HAPTOGLOBIN Routine 10/30/2024 2:20 PM EDT Protein S deficiency (CMS/HCC V24) RETICULOCYTE COUNT Routine 10/30/2024 2: 20 PM EDT Protein S deficiency (CMS/HCC V24) FERRITIN Routine 10/30/2024 2:20 PM EDT Protein S deficiency (CMS/HCC V24) CBC AND DIFFERENTIAL Routine 10/30/2024 2:20 PM EDT Protein S deficiency (CMS/HCC V24) US BREAST LIMITED LEFT Routine 3:27 PM [...] Recently Relevant to Health Maintenance Results * (ABNORMAL) Vitamin B12 and folate (10/30/2024 2:20 PM EDT) Pathologist [facility] Vitamin B-12 1,945(H) 250 - 900 pcg/mL LAB CHEMISTRY METHOD 10/30/2024 5:40 PM EDT [facility] Folate 12.8 2.8 - 17.0 ng/ml LAB CHEMISTRY METHOD 10/30/2024 5:40 PM EDT [facility] Blood Venous blood specimen / Unknown Venipuncture / Unknown 10/30/2024 2:20 PM EDT 10/30/2024 4:30 PM EDT Heath Whitehead MD LAB BLOOD ORDERABLES Final R esult [facility] [address] [place] [address], [place] [phone] * (ABNORMAL) CBC auto differential (10/30/2024 2:20 PM EDT) WBC 5.1 4.8 - 10.8 K/mcL LAB HEMETOLOGY METHOD 10/30/2024 5:00 PM EDT [facility] RBC 3.10(L) 3.80 - 4.80 M/mcL LAB HEMETOLOGY METHOD 10/30/2024 5:00 PM EDT [facility] Hemoglobin 8.5(L) 11.5 - 16.0 g/dL LAB HEMETOLOGY METHOD 10/30/2024 5:00 PM EDT [facility] Hematocrit 28.2(L) 35.0 - 47.0 % LAB HEMETOLOGY METHOD 10/30/2024 5:00 PM EDT [facility] MCV 92.2 79.0 - 98.0 FL LAB HEMETOLOGY METHOD 10/30/2024 5:00 PM EDT [facility] MCH 27.8 27.0 - 32.0 pcg LAB HEMETOLOGY METHOD 10/30/2024 5:00 PM EDT [facility] MCHC 30.1(L) 32.0 - 37.0 g/dL LAB HEMETOLOGY METHOD 10/30/2024 5:00 PM EDT [facility] RDW 14.7 11.0 - 15.0 % LAB HEMETOLOGY METHOD [facility] 188 130 - 400 K/mcL LAB HEMETOLOGY METHOD 10/30/2024 5:00 PM EDT [facility] MPV 12.5(H) 7.0 - 11.0 FL LAB HEMETOLOGY METHOD 10/30/2024 5:00 PM [facility] NRBC 0.0 <1.0 % LAB HEMETOLOGY METHOD 10/30/2024 5:00 PM [facility] NRBC Absolute 0.00 <0.10 K/mcL LAB HEMETOLOGY METHOD 10/30/2024 5:00 PM [facility] Neutrophils Relative 60.9 % LAB HEMETOLOGY METHOD 10/30/2024 5:00 PM [facility] Lymphocytes Relative 29.4 % LAB HEMETOLOGY METHOD 10/30/2024 5:00 PM [facility] Monocytes Relative 7.5 % LAB HEMETOLOGY METHOD 10/30/2024 5:00 PM [facility] Eosinophils Relative 1.4 % LAB HEMETOLOGY METHOD 10/30/2024 5:00 PM [facility] Basophils Relative 0.4 % LAB HEMETOLOGY METHOD 10/30/2024 5:00 PM [facility] Immature Granulocytes Relative 0.4 % LAB HEMETOLOGY METHOD 10/30/2024 5:00 PM [facility] Neutrophils Absolute 3.08 1.50 - 7.00 K/mcL LAB HEMETOLOGY METHOD 10/30/2024 5:00 PM [facility] Lymphocytes Absolute 1.49 1.00 - 5.00 K/mcL LAB HEMETOLOGY METHOD 10/30/2024 5:00 PM [facility] Monocytes Absolute 0.38 0.20 - 1.00 K/mcL LAB HEMETOLOGY METHOD 10/30/2024 5:00 PM [facility] Eosinophils Absolute 0.07 0.00 - 0.50 K/mcL LAB HEMETOLOGY METHOD 10/30/2024 5:00 PM EDT [facility] Basophils Absolute 0.02 0.00 - 0.20 K/mcL LAB HEMETOLOGY METHOD 10/30/2024 5:00 PM EDT [facility] Immature Granulocytes Absolute 0.02 0.00 - 0.03 K/mcL LAB HEMETOLOGY METHOD 10/30/2024 5:00 PM EDT [facility] Blood Venous blood specimen / Unknown Venipuncture / Unknown 10/30/2024 2:20 PM EDT 10/30/2024 4:30 PM EDT us Heath Whitehead MD LAB BLOOD ORDERABLES Final R esult [facility] [address] [place] [address], [place] [phone] * (ABNORMAL) Reticulocyte count (10/30/2024 2:20 PM EDT) Retic Ct Abs 0.050 0.030 - 0.090 M/mcL LAB HEMETOLOGY METHOD 10/30/2024 5:00 PM EDT [facility] Retic Ct Pct 1.6 0.7 - 1.7 % LAB HEMETOLOGY METHOD 10/30/2024 5:00 PM EDT [facility] Immature Retic Fract 16.6(H) 2.3 - 15.9 % LAB HEMETOLOGY METHOD 10/30/2024 5:00 PM EDT [facility] Reticulocyte Hemoglobin 29.2 >29.0 pcg LAB HEMETOLOGY METHOD 10/30/2024 5:00 PM EDT [facility] Blood Venous blood specimen / Unknown Venipuncture / Unknown 10/30/2024 2:20 PM EDT 10/30/2024 4:30 PM EDT us Heath Whitehead MD LAB BLOOD ORDERABLES Final R esult Performing Organization Address [facility]/ZIP Co de Phone Number [facility] [address] [place] [address], * Haptoglobin (10/30/2024 2:20 PM EDT) Haptoglobin 88 16 - 200 mg/dL LAB CHEMISTRY METHOD 10/30/2024 5:18 PM EDT [facility] Blood Venous blood specimen / Unknown Venipuncture / Unknown 10/30/2024 2:20 PM EDT 10/30/2024 4:30 PM EDT us Heath Whitehead MD LAB BLOOD ORDERABLES Final R esult Performing Organization Address [facility] Co de Phone Number [facility] [address] [place] [address], * (ABNORMAL) Ferritin (10/30/2024 2:20 PM EDT) Ferritin 7(L) 8 - 252 ng/mL LAB CHEMISTRY METHOD 10/30/2024 5:20 PM EDT [facility] Blood Venous blood specimen / Unknown Venipuncture / Unknown 10/30/2024 2:20 PM EDT 10/30/2024 4:30 PM EDT Heath Whitehead MD LAB BLOOD ORDERABLES Final R esult Performing Organization Address [facility] Co de Phone Number [facility] [address] [place] [address], [place] [phone] * US Breast Limited Left (10/18/2024 3:27 [...] mammography. Return to annual mammography. Mammo Location: [facility], [address] [place] [address], [phone], . -------- FINAL REPORT -------- Dictated By: Moisés Dboson Dictated Date: 10/18/2024 15:23 ET Assigned Physician: Moisés Dobson Reviewed and Electronically Signed By: Moisés Dobson Signed Date: 10/18/2024 15:30 ET Workstation ID: [id number] Transcribed By: Self Edit Transcribed Date: 10/18/2024 [...] mammography. Return to annual mammography. Mammo Location: [facility], [address] [place] [address], [phone], . -------- FINAL REPORT -------- Dictated By: Moisés Dobson Dictated Date: 10/18/2024 15:23 ET Assigned Physician: Mosiés Dobson Reviewed and Electronically Signed By: Moisés Dobson Signed Date: 10/18/2024 15:30 ET Workstation ID: [id number] Transcribed By: Self Edit Transcribed Date: 10/18/2024 15:28 ET us Jazz Amador CNDoug IMG US PROCEDURES F inal Result * [...] mammography. Return to annual mammography. Mammo Location: [facility], [address] [place] [address], [phone], . -------- FINAL REPORT -------- Dictated By: Moisés Dobson Dictated Date: 10/18/2024 15:23 ET Assigned Physician: Moisés Dobson Reviewed and Electronically Signed By: Moisés Dobson Signed Date: 10/18/2024 15:30 ET Workstation ID: [id number] Transcribed By: Self Edit Transcribed Date: 10/18/2024 [...] mammography. Return to annual mammography. Mammo Location: [facility], [address] [place] [address], [phone], . -------- FINAL REPORT -------- Dictated By: Moisés Dobson Dictated Date: 10/18/2024 15:23 ET Assigned Physician: Moisés Dobson Reviewed and Electronically Signed By: Moisés Dobson Signed Date: 10/18/2024 15:30 ET Workstation ID: [id number] Transcribed By: Self Edit Transcribed Date: 10/18/2024 15:28 ET Jazz Amador CNDoug IMG BI PROCEDURES F inal Result * Endoscopy, small bowel with ileum (10/04/2024 3:13 PM EDT) Anatomical Region Laterality Modality Endoscopy Historical Provider GI~PROCEDURE ORDERABLES F inal Result * POC , urine manually resulted (2024 4:06 PM EDT) [facility] HCG, Ur POC Negative Negative POC hCG Int QC Pass? Yes Yes Urine Urine specimen obtained by clean catch procedure / Unknown 2024 4:06 PM EDT Mirta Sampson [facility] POINT OF CARE TEST ENTER/EDIT ORDERABLES Final Result * Hepatitis C antibody (06/22/2024 3:46 PM EDT) [facility] Hepatitis C Antibody Negative Negative LAB CHEMISTRY METHOD 06/22/2024 5:39 PM EDT [facility] Blood Venous blood specimen / Unknown Venipuncture / Unknown 06/22/2024 3:46 PM EDT 06/22/2024 4:11 PM EDT [facility] LAB BLOOD ORDERABLES Final Re sult Performing Organization Address [facility]/State/ZIP Co de Phone Number [facility] [address] [place] [address], [place] [phone] * HIV 1,2 antibody, p24 antigen with reflex to differentiation (06/22/2024 3:46 PM EDT) [facility] HIV Combo AB/AG Negative Negative LAB CHEMISTRY METHOD 06/22/2024 5:40 PM EDT [facility] Blood Venous blood specimen / Unknown Venipuncture / Unknown 06/22/2024 3:46 PM EDT 06/22/2024 4:11 PM EDT Narrative [facility] - 06/22/2024 5:40 PM EDT This assay is a 4th generation assay allowing for earlier detection of HIV infection by detecting the presence of the HIV-1 p24 antigen as well as the traditional antibodies to HIV type 1 (including group O) and type 2. Use of a 4th generation assay is the current CDC recommendation for HIV screening. [facility] LAB BLOOD ORDERABLES Final Re sult Performing Organization Address [facility]/ZIP Co de Phone Number [facility] [address] [place] [address], [place] [phone] * HPV with reflex genotype (06/22/2024 3:01 PM EDT) HPV Negative Negative LAB MICROBIOLOGY METHOD 06/23/2024 1:21 PM EDT [facility] Brushing/Spatula Cervix uteri structure / Unknown 06/22/2024 3:01 PM EDT 06/23/2024 4:55 AM EDT Mirta Sampson CNM LAB MOLECULAR DIAGNOSTICS ORD ERABLES Final Result Performing Organization Address [facility] Co de Phone Number [facility] [address] [place] [address], [place] [phone] from Last 3 Months or Most Recently Relevant to Health Maintenance Insurance [employer] [place] [employer] [place] [employer] Care Teams Ship'S Engineer Relationship Specialty Start Date End Date Bryan Estrella MD [address] [place] [address] PCP - General Internal Medicine 01/20/24
--- OUTSIDE RECORDS SUMMARY | 2024-11-09 08:24 | XMS_ITS | Encounter Summary ---
Author Organization [facility] Address [address] [place], [place] [id number] Care Team Providers Care Heating Mechanic Name Role Phone Bryan Estrella MD Primary Care Provider Encounter Details Date Type Department Care Team ([facility] Contact Info) Description 05/22/2024 Scanned Document [facility] Rheumatology [address] [address] Clemente Atkinson, DO [address] [address] Social History Tobacco Use Types Packs/Day Years [...] on filedocumented in this encounter Care Teams Heating Mechanic Relationship Specialty Start Date End Date Bryan Estrella MD [address] [place] [phone] PCP - General 03/20/24 documented as of this encounter
--- OUTSIDE RECORDS SUMMARY | 2024-11-09 08:27 | XMS_ITS | Clinical Summary ---
Author Organization [facility] Address [address] [place] [address] Care Team Providers Care Automated Manufacturing Instructor Name Role Phone Bryan Estrella MD Primary Care Provider [phone] Allergies Active Allergy Reactions Criticality Noted Date [...] age to complete this topic Care Teams Automated Manufacturing Instructor Relationship Specialty Start Date End Date Bryan Estrella MD [address] [place] [address] PCP - General Internal Medicine 07/31/20
== END 2024-11-09 08:59 | disposition home or self-care (01) ==
LOC: HO.RHES 08:08
PROVIDERS: PCP Internal Medicine; Visit Provider Internal Medicine Rheumatology
DX: M25.50 Pain in unspecified joint (principal); G57.93 Unspecified mononeuropathy of bilateral lower limbs; M25.561 Pain in right knee; M25.562 Pain in left knee; G89.29 Other chronic pain
CPT/HCPCS: 99214; G2211

== ENCOUNTER → 2024-11-09 08:07 | Outpatient (BNVA) | payer OTHER, SELFPAY | PROVIDERS: PCP Internal Medicine; Visit Provider Internal Medicine Rheumatology | DX: G57.93 Unspecified mononeuropathy of bilateral lower limbs (principal); M25.561 Pain in right knee; M25.562 Pain in left knee; G89.29 Other chronic pain | CPT/HCPCS: 99212 ==

== ENCOUNTER 2024-11-15 14:05 | Outpatient (RCR) | payer OTHER, SELFPAY ==
--- NOTE | 2024-10-12 12:45 | MHC.OT.EP ---
[address] [phone] Occupational Therapy Plan of Care Patient Name: Chely Guerrero Date of Evaluation: 10/11/24 Diagnosis: Mild neurocognitive disorder Pain Location: Headaches; migraines Current: 4/10 Worst: 10/10 Pain Score: 4 Pain Scale Used: Numeric (0 - 10) Aggravating Factors: Sustained attention, bright lights During headache may have blurry vision, halos, flashing lights, weekly lines, floaters, difficulty focusing eyes. Difficulty speaking, stuttering speech, word-finding difficulty. Alleviating Factors: Medication Assessment: Pt is a 44 y/o female referred to OT for cognitive rehabilitation following a history of Long COVID and recent evaluation at a Long-COVID clinic. Pt presents with moderate cognitive impairment as evidenced by MOCA score of 20/30, with significant deficits in delayed memory recall (1/5), language fluency, and naming. Pt was unable to complete the clock drawing task and became visibly upset when prompted, indicating possible cognitive overload and emotional frustration related to task demands. Pt reports chronic fatigue, persistent headaches, and difficulties with attention, short-term memory, and processing speed. 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 Medical history includes two COVID-19 infections (May and Feb 2020) with subsequent diagnosis of Myalgic Encephalomyelitis/Chronic Fatigue Syndrome and narcolepsy. She would benefit from skilled OT services to improve attention, memory, cognitive endurance, and executive function in order to support eventual return to academic and work roles. Frequency and Duration: The patient will be seen 1x/wk for 6 weeks Short Term Goals: Pt will engage in a focused cognitive task (reading or typing) for 10?15 minutes with minimal redirection or breaks Demo use of 2?3 remedial and compensatory memory aids with SPV Pt will use a structured routine (daily merchandise planner or visual schedule) to initiate and complete a multi-step task with min A Acid Polymerization Operator Goals: Client will independently complete 30+ minutes of computer-based cognitive tasks with 1-2 rest breaks IND with remedial and compensatory memory strategies Improve cognitive function as evidenced by >24/30 score on MOCA Treatment Plan: Therapeutic Activity Other (see comments) Cognitive retraining Electronically Signed By: Hedy Bermeo MS OTR/L Please Sign and return to therapist. Thank you once again for your referral.
--- NOTE | 2024-11-15 15:22 | MHC.OT.DC ---
[facility] Office [address] [facility] [phone] F: [phone] F: [phone] Occupational Therapy Discharge Note Patient Name: Chely Guerrero Provider: Renetta Roldan Diagnosis: Mild neurocognitive disorder Date of Evaluation: 10/11/24 Date of Discharge: 11/15/24 Treatments to Date: 4 Discharge Summary: Chely has demonstrated improved affect and attention since beginning therapy. She continues to struggle with feelings of overwhelm and difficulty multi-tasking, although she reports feeling more optimistic and is able to sustain attention on single task problems for >20 min without increase in symptoms. She is utilizing her phone for appointment reminders and demonstrates ability to utilize external memory aids independently. Pt was educated in use of [employer] brain training program online, as well as continuing to practice cognitive endurance tasks such as soduku, word searches, etc. At this time, pt has met goals and is in agreement with discharge to [facility]. She will be attending PT for chronic neck pain/headaches. Electronically Signed By: Hedy Bermeo MS OTR/L Reviewed/agree with student documentation: Therapist: Please Sign and return to therapist, thank you for your referral.
--- NOTE | 2024-11-21 10:41 | MHC.OT.DC ---
[facility] Office [address] [facility] [phone] F: [phone] F: [phone] Occupational Therapy Discharge Note Patient Name: Chely Guerrero Provider: Renetta Roldan Diagnosis: Mild neurocognitive disorder Date of Evaluation: 10/11/24 Date of Discharge: 11/21/24 Treatments to Date: 3 Discharge Status: Achieved Goals Improved Function Independent with HEP Discharge Summary: Chely has demonstrated improved affect and attention since beginning therapy. She continues to struggle with feelings of overwhelm and difficulty multi-tasking, although she reports feeling more optimistic and is able to sustain attention on single task problems for >20 min without increase in symptoms. She is utilizing her phone for appointment reminders and demonstrates ability to utilize external memory aids independently. Pt was educated in use of [employer] brain training program online, as well as continuing to practice cognitive endurance tasks such as soduku, word searches, etc. At this time, pt has met goals and is in agreement with discharge to [facility]. She will be attending PT for chronic neck pain/headaches. Thank you for this referral! Electronically Signed By: Hedy Bermeo, OTR/L Reviewed/agree with student documentation: Therapist: Please Sign and return to therapist, thank you for your referral.
== END 2024-11-21 10:42 | disposition home or self-care (01) ==
LOC: HO.OTS 14:05
PROVIDERS: Visit Provider Nurse Practitioner Family
DX: G43.109 Migraine with aura, not intractable, without status migrainosus (principal); F06.70 Mild neurocognitive disorder due to known physiological condition without behavioral disturbance
CPT/HCPCS: 97166; 97530

== ENCOUNTER 2024-12-08 17:44 | Outpatient (REF) | payer OTHER, SELFPAY ==
--- OUTSIDE RECORDS SUMMARY | 2024-12-07 13:00 | XMS_ITS | Encounter Summary ---
Author Organization [facility] Address [address] [place] [address] Care Team Providers Care Craft Manager Name Role Phone Bryan Estrella MD Primary Care Provider [phone] Reason for Visit * Episode Based Medications (Routine) - Authorized Specialty Diagnoses / Procedures Referred By Contac t Referred To Contact Diagnoses Anemia, unspecified type Heath Whitehead MD [address] [place] [address] Phone: tel: fax: [facility] [address] [place] [phone] Phone: tel: fax: Referral ID Status Reason Start Date Expiration Date V isits Requested Visits Authorized [id number] Authorized 11/02/2024 11/02/2025 1 4 Encounter Details Date Type Department Care Team (Latest Contact Info) Description 12/07/2024 1:00 PM EDT Hospital Encounter [facility] [address] [place] [phone] Heath Whitehead MD [address] [place] [address] Anemia, unspecified type (Primary Dx) Social History Tobacco Use Types [...] Female 09/21/2024 2:46 PM EDT Sexual Orientation Straight 11/23/2024 2: 00 PM EDT Occupation Industry Job Start Date Job End Date disabled Not on file Not on file Not on file documented as of this encounter Last Filed Vital Signs Vital Sign Reading Time Taken Comments Blood Pressure 110/77 12/07/2024 1:10 PM EDT Pulse 102 12/07/2024 1:10 PM EDT Temperature 35.8 C (96.5 F) 12/07/2024 1:10 PM EDT Respiratory Rate - - Oxygen Saturation 100% 12/07/2024 1:10 PM EDT Inhaled Oxygen Concentration - - Weight - - Height - - Body Mass Index - - documented in this encounter Progress Notes * Alexys Chaney RN - 12/07/2024 1:00 PM EDT Patient arrives ambulatory for her third Venofer infusion. Stable patient assessment. Patient has tolerated previous infusions without side effects. Patient has chronic pain in her neck and back. Patient also reports having a mild headache right now. Patient again requesting the smallest IV possible in the AC area. PIV inserted without incident. Patient's Venofer initiated per orders. Patient resting comfortably in chair with call burris in reach. Patient rested during infusion watching her ipad, she walked to the bathroom independently. 1515-Patient completed Venofer without incident. PIV removed-intact. Patient has follow-up appointment in place. Patient aware to have labs drawn a week prior to her follow-up appointment with Dr. Whitehead. Patient stable upon discharge. documented in this encounter Plan of Treatment Upcoming Encounters Date Type Department Care Team (Late st Contact Info) Description 02/05/2025 1:00 PM EST Clinical Support Obstetrics & Gynecology - [address] [phone] 02/06/2025 3:00 PM EST Office Visit [facility] Hematology Oncology [address] [place] [phone] Heath Whitehead MD [address] [place] [address] documented as of this encounter Visit Diagnoses Diagnosis Anemia, unspecified type- Primary documented in this encounter Administered Medications Inactive Administered Medications - up to 3 most recent administrations Medication Order MAR Action Action Date Dose Rate Site iron sucrose (VENOFER) 300 mg in sodium chloride 265 mL IVPB 300 mg, intravenous, at 176.7 mL/hr, Administer over 90 Minutes, Once, On Malika 12/07/24 at 1345, For 1 doseIndications:Anemia, unspecified type New Bag 12/07/2024 1:33 PM EDT 300 mg 176.7 mL/hr documented in this encounter Orders Medications Ordered That Ernst ht Not Have Been Administered Count Last Ordered Date First Ordered Date iron sucrose (VENOFER) 300 m g in sodium chloride 265 mL IVPB 1 12/07/2024 Appointment Requests Count Last Ordered Date Fi rst Ordered Date ONCBCN INFUSION APPOINTMENT REQUEST 03 1 documented in this encounter Care Teams Craft Manager Relationship Specialty Start Date End Date Bryan Estrella MD [address] [place] [phone] PCP - General Internal Medicine 01/20/24 documented as of this encounter
--- NOTE | ~2024-12-08 | MR_ITS ---
EXAMINATION: MRI HAND WITH AND WITHOUT CONTRAST, RIGHT CLINICAL INFORMATION: Question inflammatory arthritis. History of chronic polyarthralgias. COMPARISON: X-ray 10/18/2024 TECHNIQUE: MRI of the wrist without contrast is performed in a 1.5 Mia high-field scanner. FINDINGS: BONE/JOINTS: Alignment is anatomic. No evidence of acute fracture or dislocation. Mild-moderate narrowing of the DIP and PIP joints. No significant marrow edema, erosions or abnormal enhancement. No significant abnormal joint effusions. No suspicious lytic or blastic lesions. MUSCLE/TENDONS: Tendons appear intact. No appreciable tenosynovitis. LIGAMENTS: Evaluation of the wrist intrinsic ligaments are limited in this large [id number]-tz-omgo. The scapholunate, TFCC grossly appears intact. MEDIAN NERVE: Within normal limits. SOFT TISSUES: No abnormal soft tissue collection seen. MR/MR hand RT wo/w con IMPRESSION: 1. Redemonstrated narrowing of the PIP and DIP joints. No significant abnormal marrow edema, erosions or abnormal enhancement is identified. 2. No appreciable tenosynovitis. Electronically signed by: Casey Garcia MD 12/11/2024 09:30 AM EDT
--- OUTSIDE RECORDS SUMMARY | 2024-12-08 17:53 | XMS_ITS | Encounter Summary ---
Author Organization [facility] Address [address] [place], [place] [id number] Care Team Providers Care Maturity Checker Name Role Phone Bryan Estrella MD Primary Care Provider Encounter Details Date Type Department Care Team ([facility] Contact Info) Description 03/20/2024 Scanned Document [facility] Rheumatology [address] [address] Clemente Atkinson, [place] [address] Social History Tobacco Use Types Packs/Day Years [...] on filedocumented in this encounter Care Teams Maturity Checker Relationship Specialty Start Date End Date Bryan Estrella MD [address] [place] [phone] PCP - General 03/20/24 documented as of this encounter
--- OUTSIDE RECORDS SUMMARY | 2024-12-08 17:53 | XMS_ITS | Clinical Summary ---
Author Organization [facility] Address [address] [place] [address] Care Team Providers Care Track Hoe Operator Name Role Phone Bryan Estrella MD Primary Care Provider [phone] Social History Tobacco Use Types Packs/Day Years [...] 08/08/2009 HPV/Cotest 08/08/2009 COVID-19 Vaccine ( season) 2024 02/25/2021, 01/06/2021, [...] to complete this topic Insurance Care Teams Track Hoe Operator Relationship Specialty Start Date End Date Bryan Estrella MD [address] [place] [address] PCP - General 03/20/24
--- OUTSIDE RECORDS SUMMARY | 2024-12-08 17:53 | XMS_ITS | Clinical Summary ---
Author Organization [facility] Address [address] [place] [address] Care Team Providers Care Resident Associate Name Role Phone Bryan Estrella MD Primary Care Provider [phone] Allergies Active Allergy Reactions Criticality Noted Date [...] age to complete this topic Care Teams Resident Associate Relationship Specialty Start Date End Date Bryan Estrella MD [address] [place] [phone] PCP - General Internal Medicine 07/31/20
--- OUTSIDE RECORDS SUMMARY | 2024-12-08 17:53 | XMS_ITS | Encounter Summary ---
Author Organization [facility] Address [address] [place], [place] [id number] Care Team Providers Care Survey Research Associate Name Role Phone Bryan Estrella MD Primary Care Provider Encounter Details Date Type Department Care Team ([facility] Contact Info) Description 05/22/2024 Scanned Document [facility] Rheumatology [address] [address] Clemente Atkinson, [place] [address] Social History Tobacco Use Types Packs/Day Years [...] on filedocumented in this encounter Care Teams Survey Research Associate Relationship Specialty Start Date End Date Bryan Estrella MD [address] [place] [phone] PCP - General 03/20/24 documented as of this encounter
--- OUTSIDE RECORDS SUMMARY | 2024-12-08 17:53 | XMS_ITS | Clinical Summary ---
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 60 tablet 3 11/07/2024 12/08/19 25 Active Problems Problem Noted Date Diagnosed Date COVID-19 long hauler 08/10/2024 Encounters Date Type Department Care Team Description 11/10/2024 Social [facility] at [address] [place] [address] Angela Ricketts LCSW 11/07/2024 3:30 PM EDT Social Work [facility] at [address] [place] [address] Hedy Pastrana MD 11/07/2024 3:00 PM EDT Follow Up [facility] at [address] [place] [address] Hedy Pastrana MD Hickey, John Kevin, [place] Post-acute sequelae of COVID-19 (PASC) (Primary Dx); Abnormal loss of weight; 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 [address] [place] [address] Angela Ricketts LCSW from Last 3 Months Social History Tobacco Use Types Packs/Day Years Used Date Smoking Tobacco: Never Smokeless Tobacco: Never Tobacco Cessation:Counseling Given: Not Answered Alcohol Use Standard Drinks/Week Comments Never 0 (1 standard drink = 0.6 oz pur e alcohol) [facility] Utilities Answer Date Recorded In the [...] your living situation today? I have a [facility] place to live 08/11/2024 Housing [...] Description 03/19/2025 3:00 PM EST Follow Up [facility] at [address] [place] [address] [address] [place], [place] [address] Hedy Pastrana MD [address] [place] [phone] 03/19/2025 3:30 PM EST Social Work [facility] at [address] [place] [phone] Health Maintenance Due Date Last Done Comments Cervical cancer screening 08/08/2000 Lipid disorder screening 2019 Colon cancer screening, Colonoscopy 08/08/2024 Diabetes screening 08/08/2024 Influenza vaccine 10/06/2024 03/17/2024, , 01/13/2017, Additional history exists Covid-19 vaccine series ( season) 2024 02/25/2021, 01/06/2021, 07/11/2020, Additional history exists Breast cancer screening 10/18/2026 [...] GENERIC COMMERCIAL GENERIC COMMERCIAL GENERIC Care Teams Mechanic Foreman Relationship Specialty Start Date End Date Bryan Estrella MD [address] [place] [address] PCP - General Internal Medicine 01/12/24
--- OUTSIDE RECORDS SUMMARY | 2024-12-08 17:53 | XMS_ITS | Encounter Summary ---
Demographics Address [address] [place] [address] [address] [place] [address] Mobile Phone Email Address Preferred Language Portuguese Marital Status Unknown Jewish Affiliation Unknown Race Unknown Ethnic Group Not or Lati no Author Organization [facility] Address [address] [place] [phone] Care Team Providers Care Telephone Plant Power Operator Name Role Phone Bryan Estrella MD Primary Care Provider Encounter Details Date Type Department Care Team (Late st Contact Info) Description 08/11/2024 Scanned Document [facility] at [address] [facility] [address] [place] [address] Hedy Pastrana MD [address] [facility] [address] [place] [address] Social History Tobacco Use Types Packs/Day Years Used Date Smoking Tobacco: Never Smokeless Tobacco: Never Alcohol Use Standard Drinks/Week Comments Never 0 (1 standard drink = 0.6 oz pur e alcohol) [facility] Utilities Answer Date Recorded In the [...] 03/19/2025 3:00 PM EST Follow Up [facility] at [address] [place] [address] Hedy Pastrana MD [address] [place] [phone] 03/19/2025 3:30 PM EST Social Work [facility] at [address] [place] [phone] documented as of this encounter Visit Diagnoses Not on filedocumented in this encounter Care Teams Telephone Plant Power Operator Relationship Specialty Start Date End Date Bryan Estrella MD [address] [place] [address] PCP - General Internal Medicine 01/12/24 documented as of this encounter
--- OUTSIDE RECORDS SUMMARY | 2024-12-08 17:53 | XMS_ITS | Clinical Summary ---
Author Organization [facility] [address] [place] [address] [place] [phone] Phone Care Team Providers Care Teller Vault Name Role Phone Bryan Estrella MD Primary Care Provider [phone] Allergies Active Allergy Reactions Criticality Noted Date Comments Bee Pollen Anaphylaxis High 07/31/2020 Cigarette Smoke Shortness of breath High 11/23/2024 Fentanyl Anaphylaxis High 06/20/2024 Other 09/07/2017 Penicillins Rash Medium 04/01/2010 Sulfa (Sulfonamide Antibiotics) Hives High 11/07 [...] by mouth at bedtime. 8 Active white petrolatum-commercial title examiner al oiL (Refresh P.M.) 57.3-42.5 % [...] MAY REPEAT IN 2 HOURS 4 Active p-qaedsj-qksjpwt e (NAC) 600 mg capsule Take 1 capsule (600 mg total) by mouth. 4 Active ammonium lactate (AMLACTIN) 12 % cream APPLY TO ARMS, TRUNK AND LEGS TWICE DAILY 5 Active cyanocobalamin (VITAMIN B-12) 1,000 mcg [...] 90 tablet 1 5 02/06/20 25 Active Additional Information Patient not taking.Reported on 11/14/2024 medroxyPROGESTER one 150 mg/mL injection Inject 1 [...] 07/06/2021 Post viral syndrome 05/22/2021 Overview (01/31/2024): [facility] Memory problem 09/12/2020 Chronic cough 08/03/2020 Overview (01/31/2024): Dr Avila Reactive airway disease without complication Attention deficit 06/04/2019 Vitamin D deficiency 01/28/2019 Insomnia 12/28/2017 Myopia with astigmatism, bilateral 08/17/2017 Tear film insufficiency, bilateral 08/17/2017 Anemia 12/05/2015 Overview (06/20/2024): Dr Whitehead. 09/25 normal Melvin/EGD. Iron infusions. Periodic CBC to be checked [...] Encounters Date Type Department Care Team Description 12/07/2024 1:00 PM EDT Hospital Encounter [facility] [address] [place] [phone] Heath Whitehead MD Anemia, unspecified type (Primary Dx) 12/01/2024 1:00 PM EDT - 12/01/2024 11:59 PM EDT Hospital Encounter [address] [phone] Heath Whitehead MD Anemia, unspecified type (Primary Dx) Discharge Disposition: Home or Self Care 11/23/2024 2:00 PM EDT - 11/23/2024 11:59 PM EDT Hospital Encounter [address] [phone] Heath Whitehead MD Anemia, unspecified type (Primary Dx) Discharge Disposition: Home or Self Care 11/14/2024 2:14 PM EDT - 11/14/2024 11:59 PM EDT Hospital Encounter [address] [phone] Heath Whitehead MD Anemia, unspecified type (Primary Dx) Discharge Disposition: Home or Self Care 11/08/2024 1:00 PM EDT Office Visit Obstetrics & Gynecology - [address] [phone] Kiersten Denton CNM Surveillance of contraceptive injection (Primary Dx) 11/02/2024 11:15 AM EDT Office Visit [facility] Hematology Oncology [address] [place] [phone] Heath Whitehead MD Iron deficiency anemia due to chronic blood loss (Primary Dx); Protein S deficiency ([facility]/HCC V24) 11/02/2024 Telephone [facility] Hematology Oncology [address] [place] [phone] Sonal Leslie CO 10/30/2024 1:30 PM EDT Office Visit [facility] Hematology Oncology [address] [place] [phone] Heath Whitehead MD Protein S deficiency ([facility] V24) (Primary Dx); Anemia, unspecified type 10/18/2024 3:02 PM EDT - 10/18/2024 11:59 PM EDT Hospital Encounter Radiology Department - [address] [phone] Other abnormal and inconclusive findings on diagnostic imaging of breast Discharge Disposition: Home or Self Care 10/18/2024 3:00 PM EDT - 10/18/2024 11:59 PM EDT Hospital Encounter Radiology Department - [address] [phone] Encounter for screening mammogram for malignant neoplasm of breast Discharge Disposition: Home or Self Care 10/04/2024 Billing Patient Not Present Gastroenterology - [address] [place] [phone] Shaji Benavides MD Iron deficiency anemia due to chronic blood loss (Primary Dx) 09/21/2024 Telephone Gastroenterology - [address] [place] [phone] Lui Hardy MD 09/14/2024 Telephone Obstetrics & Gynecology - [address] [phone] Mirta Sampson CNM from Last 3 Months Immunizations Immunization Administration Dates Next Due HPV, Quadrivalent 04/06/2006,02/05/2006 [...] Date Site/Laterality Comments FLEXIBLE SIGMOIDOSCOPY 07/23/2008 PROCEDURE: ND SIGMOIDOSCOPY FLX DX W/COLLJ SPEC BR/WA IF PFRMD; COMMENT: Normal to 70 cm ESOPHAGOGASTRODUODENOSCOPY 07/23/2008 PROCEDURE: ND EGD TRANSORAL BIOPSY SINGLE/MULTIPLE; COMMENT: Visually normal, duodenal bx: Normal. BACK SURGERY 07/25/2009 PROCEDURE: HISTORICAL BACK SURGERY; COMMENT: Dr. Barillas COLONOSCOPY 09/05/2020 PROCEDURE: HISTORICAL COLONOSCOPY; COMMENT: negative ESOPHAGOGASTRODUODENOSCOPY 09/05/2020 PROCEDURE: ND EGD TRANSORAL BIOPSY SINGLE/MULTIPLE; COMMENT: negative, biopsy pending OTHER SURGICAL HISTORY 10/15/2022 Left PROCEDURE: ND BX BREAST W/DEVICE 1ST LESION STEREOTACTIC GUID [...] DX:Anemia; COMME NT: Dr Whitehead. 09/25 normal Melvin/EGD. Iron infusions. Periodic CBC to be checked by PCP Attention deficit 06/04/2019 DX:Attention d eficit Chronic back pain 07/13/2008 DX:Chronic nura k pain; COMMENT: Surgery- Dr. Barillas 07/25/09; Dr Kruse, justin PVSS Chronic cough 08/03/2020 DX:Chronic cough ; [...] COMMENT: Abilify caused side effects. Psychiatry prescribing, [facility] Vomiting 07/17/2009 DX:Vomiting; COM MENT: 05/15- [...] F) 12/07/2024 1:10 PM EDT Respiratory Rate 18 12/01/2024 1:19 PM EDT Oxygen Saturation 100% 12/07/2024 1:10 PM EDT [...] EST Clinical Support Obstetrics & Gynecology - [facility] [address] [place] [phone] 02/06/2025 3:00 PM EST Office Visit [facility] Hematology Oncology [address] [place] [phone] Heath Whitehead MD [address] [place] [address] Health Maintenance Due Date Last Done Comments Colorectal Cancer Screening: Colonoscopy 1979 Hepatitis B Vaccines (1 of 3 - 19+ 3-dose series) 08/08/1998 Pneumococcal Vaccine: Pediatrics (0 to 5 Years) and At-Risk Patients (6 to 49 Years) (1 of 2 - PCV) 08/08/1998 HPV Vaccines (3 - Risk 3-dose series) 08/06/2006 04/06/2006, 02/05/2006 Social Influencers of Health Screening 02/14/2022 Depression Screening 03/08/2024 COVID-19 Vaccine ( season) 2024 02/25/2021, 01/06/2021, 07/11/2020, Additional history exists Influenza Vaccine (#1) 2024 , 11/17/2017, 11/17/2017, Additional history exists Breast Cancer Screening 10/18/2026 10/19/19, 10/14/2023, 10/14/2023, Additional history exists DTaP,Tdap,and Td Vaccines (2 - Td or Tdap) 01/13/2027 01/13/2017 Cervical Cancer Screening: HPV 06/22/2029 06/22/2024, 08/23/2020 RSV Immunization Adult Patients (1 - 1-dose 75+ series) 08/08/2054 HIV Screening Completed 06/22/2024, 08/23/2020 Hepatitis C [...] ENDOSCOPY, SMALL BOWEL Routine 3:13 PM EDT HEPATITIS C ANTIBODY Routine 06/22/2024 3:46 PM [...] B12 and folate (10/30/2024 2:20 PM EDT) [facility] Vitamin B-12 1,945(H) 250 - 900 pcg/mL LAB CHEMISTRY METHOD 10/30/2024 5:40 PM EDT [facility] Folate 12.8 2.8 - 17.0 ng/ml LAB CHEMISTRY METHOD 10/30/2024 5:40 PM EDT [facility] Blood Venous blood specimen / Unknown Venipuncture / Unknown 10/30/2024 2:20 PM EDT 10/30/2024 4:30 PM EDT Heath Whitehead MD LAB BLOOD ORDERABLES Final R esult [facility] [address] [place] [address], * (ABNORMAL) CBC auto differential (10/30/2024 2:20 PM EDT) [facility] WBC 5.1 4.8 - 10.8 K/mcL LAB HEMETOLOGY METHOD 10/30/2024 5:00 PM EDT [facility] RBC 3.10(L) 3.80 - 4.80 M/mcL LAB HEMETOLOGY METHOD 10/30/2024 5:00 PM [facility] Hemoglobin 8.5(L) 11.5 - 16.0 g/dL LAB HEMETOLOGY METHOD 10/30/2024 5:00 PM EDT [facility] Hematocrit 28.2(L) 35.0 - 47.0 % LAB HEMETOLOGY METHOD 10/30/2024 5:00 PM EDT [facility] MCV 92.2 79.0 - 98.0 FL LAB HEMETOLOGY METHOD 10/30/2024 5:00 PM [facility] MCH 27.8 27.0 - 32.0 pcg LAB HEMETOLOGY METHOD 10/30/2024 5:00 PM [facility] MCHC 30.1(L) 32.0 - 37.0 g/dL LAB HEMETOLOGY METHOD 10/30/2024 5:00 PM [facility] RDW 14.7 11.0 - 15.0 % LAB HEMETOLOGY METHOD 10/30/2024 5:00 PM [facility] Platelets 188 130 - 400 K/mcL LAB HEMETOLOGY METHOD 10/30/2024 5:00 PM [facility] MPV 12.5(H) 7.0 - 11.0 FL LAB HEMETOLOGY METHOD 10/30/2024 5:00 PM [facility] NRBC 0.0 <1.0 % LAB HEMETOLOGY METHOD 10/30/2024 5:00 PM [facility] NRBC Absolute 0.00 <0.10 K/mcL LAB HEMETOLOGY METHOD 10/30/2024 5:00 PM [facility] Neutrophils Relative 60.9 % LAB HEMETOLOGY METHOD 10/30/2024 5:00 PM [facility] Lymphocytes Relative 29.4 % LAB HEMETOLOGY METHOD 10/30/2024 5:00 PM [facility] Monocytes Relative 7.5 % LAB HEMETOLOGY METHOD 10/30/2024 5:00 PM [facility] Eosinophils Relative 1.4 % LAB HEMETOLOGY METHOD 10/30/2024 5:00 PM [facility] Basophils Relative 0.4 % LAB HEMETOLOGY METHOD 10/30/2024 5:00 PM [facility] Immature Granulocytes Relative 0.4 % LAB HEMETOLOGY METHOD 10/30/2024 5:00 PM [facility] Neutrophils Absolute 3.08 1.50 - 7.00 K/mcL LAB HEMETOLOGY METHOD 10/30/2024 5:00 PM EDT [facility] Lymphocytes Absolute 1.49 1.00 - 5.00 K/mcL LAB HEMETOLOGY METHOD 10/30/2024 5:00 PM EDT [facility] Monocytes Absolute 0.38 0.20 - 1.00 K/mcL LAB HEMETOLOGY METHOD 10/30/2024 5:00 PM EDT [facility] Eosinophils Absolute 0.07 0.00 - 0.50 K/mcL LAB HEMETOLOGY METHOD 10/30/2024 5:00 PM EDT [facility] Basophils Absolute 0.02 0.00 - 0.20 K/mcL LAB HEMETOLOGY METHOD 10/30/2024 5:00 PM EDT [facility] Immature Granulocytes Absolute 0.02 0.00 - 0.03 K/mcL LAB HEMETOLOGY METHOD 10/30/2024 5:00 PM EDT [facility] Blood Venous blood specimen / Unknown Venipuncture / Unknown 10/30/2024 2:20 PM EDT 10/30/2024 4:30 PM EDT Heath Whitehead MD LAB BLOOD ORDERABLES Final R esult [facility] [address] [place] [address], * (ABNORMAL) Reticulocyte count (10/30/2024 2:20 PM EDT) Retic Ct Abs 0.050 0.030 - 0.090 M/mcL LAB HEMETOLOGY METHOD 10/30/2024 5:00 PM EDT [facility] Retic Ct Pct 1.6 0.7 - 1.7 % LAB [facility]EMETOLOGY [facility] Immature Retic Fract 16.6(H) 2.3 - 15.9 % LAB HEMETOLOGY METHOD 10/30/2024 5:00 PM EDT [facility] Reticulocyte Hemoglobin 29.2 >29.0 pcg LAB HEMETOLOGY METHOD 10/30/2024 5:00 PM EDT [facility] Blood Venous blood specimen / Unknown Venipuncture / Unknown 10/30/2024 2:20 PM EDT 10/30/2024 4:30 PM EDT us Heath Whitehead MD LAB BLOOD ORDERABLES Final R esult [facility] [address] [place] [address], [place] [phone] * Haptoglobin (10/30/2024 2:20 PM EDT) Haptoglobin 88 16 - 200 mg/dL LAB CHEMISTRY METHOD 10/30/2024 5:18 PM EDT [facility] Blood Venous blood specimen / Unknown Venipuncture / Unknown 10/30/2024 2:20 PM EDT 10/30/2024 4:30 PM EDT us Heath Whitehead MD LAB BLOOD ORDERABLES Final R esult [facility] [address] [place] [address], [place] [phone] * (ABNORMAL) Ferritin (10/30/2024 2:20 PM EDT) Ferritin 7(L) 8 - 252 ng/mL LAB CHEMISTRY METHOD 10/30/2024 5:20 PM EDT [facility] Blood Venous blood specimen / Unknown Venipuncture / Unknown 10/30/2024 2:20 PM EDT 10/30/2024 4:30 PM EDT us Heath Whitehead MD LAB BLOOD ORDERABLES [facility] [address] [place] [address], * US Breast Limited Left (10/18/2024 3:27 [...] mammography. Return to annual mammography. Mammo Location: [facility], [address] [place] [address], [phone], . -------- FINAL REPORT -------- Dictated By: Moisés Dobson Dictated Date: 10/18/2024 15:23 ET Assigned Physician: Moisés Dobson Reviewed and Electronically Signed By: Moisés Dobson Signed Date: 10/18/2024 15:30 ET Workstation ID: [id number] Transcribed By: Self Edit Transcribed Date: 10/18/2024 [...] mammography. Return to annual mammography. Mammo Location: [facility], [address] [place] [address], [address], . -------- FINAL REPORT -------- Dictated By: Moisés Dobson Dictated Date: 10/18/2024 15:23 ET Assigned Physician: Moisés Dobson Reviewed and Electronically Signed By: Moisés Dobson Signed Date: 10/18/2024 15:30 ET Workstation ID: [id number] Transcribed By: Self Edit Transcribed Date: 10/18/2024 15:28 ET us Jazz Amador CNM IMG US PROCEDURES F inal Result [...] mammography. Return to annual mammography. Mammo Location: [facility], [address] [place] [address], [address], . -------- FINAL REPORT -------- Dictated By: Moisés Dobson Dictated Date: 10/18/2024 15:23 ET Assigned Physician: Moisés Dobson Reviewed and Electronically Signed By: Moisés Dobson Signed Date: 10/18/2024 15:30 ET Workstation ID: [id number] Transcribed By: Self Edit Transcribed Date: 10/18/2024 [...] mammography. Return to annual mammography. Mammo Location: [facility], [address] [place] [address], [address], . -------- FINAL REPORT -------- Dictated By: Moisés Dobson Dictated Date: 10/18/2024 15:23 ET Assigned Physician: Moisés Dobson Reviewed and Electronically Signed By: Moisés Dobson Signed Date: 10/18/2024 15:30 ET Workstation ID: [id number] Transcribed By: Self Edit Transcribed Date: 10/18/2024 15:28 ET Jazz Amador CNDoug IMG BI PROCEDURES F inal Result * Endoscopy, small bowel with ileum (10/04/2024 3:13 PM EDT) Anatomical Region Laterality Modality Endoscopy Historical Provider GI~PROCEDURE ORDERABLES F inal Result * Hepatitis C antibody (06/22/2024 3:46 PM EDT) Hepatitis C Antibody Negative Negative LAB CHEMISTRY METHOD 06/22/2024 5:39 PM EDT [facility] Blood Venous blood specimen / Unknown Venipuncture / Unknown 06/22/2024 3:46 PM EDT 06/22/2024 4:11 PM EDT Mirta Sampson CNM LAB BLOOD ORDERABLES Final Re sult [facility] [address] [place] [address], * HIV 1,2 antibody, p24 antigen with reflex to differentiation (06/22/2024 3:46 PM EDT) Pathologist [facility] HIV Combo AB/AG Negative Negative LAB CHEMISTRY METHOD 06/22/2024 5:40 PM EDT [facility] Blood Venous blood specimen / Unknown Venipuncture / Unknown 06/22/2024 3:46 PM EDT 06/22/2024 4:11 PM EDT Narrative [facility] - 06/22/2024 5:40 PM EDT This assay is a 4th generation assay allowing for earlier detection of HIV infection by detecting the presence of the HIV-1 p24 antigen as well as the traditional antibodies to HIV type 1 (including group O) and type 2. Use of a 4th generation assay is the current CDC recommendation for HIV screening. Mirta Sampson [facility] LAB BLOOD ORDERABLES Final Re sult [facility] [address] [place] [address], [place] [phone] * HPV with reflex genotype (06/22/2024 3:01 PM EDT) HPV Negative Negative LAB MICROBIOLOGY METHOD 06/23/2024 1:21 PM EDT [facility] Brushing/Spatula Cervix uteri structure / Unknown 06/22/2024 3:01 PM EDT 06/23/2024 4:55 AM EDT [facility] MOLECULAR DIAGNOSTICS ORD ERABLES Final Result Performing Organization Address [facility]/ZIP Co de Phone Number [facility] [address] [place] [address], [place] [phone] from Last 3 Months or Most Recently Relevant to Health Maintenance Insurance [facility] MEDICAID ADVANTAGE Care Teams Teller Vault Relationship Specialty Start Date End Date Bryan Estrella MD [address] [place] [address] PCP - General Internal Medicine 01/20/24
== END 2024-12-08 17:45 | disposition home or self-care (01) ==
LOC: HO.MRI 17:44
PROVIDERS: PCP Internal Medicine; Visit Provider Internal Medicine Rheumatology
DX: M79.641 Pain in right hand (principal); M79.642 Pain in left hand; M25.641 Stiffness of right hand, not elsewhere classified; M25.642 Stiffness of left hand, not elsewhere classified
CPT/HCPCS: 73220; A9585

== ENCOUNTER → 2024-12-08 17:44 | Outpatient (BNV) | payer OTHER, SELFPAY | PROVIDERS: PCP Internal Medicine; Visit Provider Radiology Diagnostic Ultrasound | DX: M79.641 Pain in right hand (principal) | CPT/HCPCS: 73220 ==

== ENCOUNTER 2024-12-15 14:03 | Outpatient (RCR) | payer OTHER, SELFPAY ==
--- NOTE | 2024-11-27 08:01 | MHC.PT.EP ---
[facility] [place] Office [place] Office [place] Office [address] Madeline Kelly [address] [phone] F: [phone] F: [phone] F: [phone] F: [phone] Physical Therapy Plan of Care Date of Evaluation: 11/24/24 Date of Surgery: Diagnosis: Start PT November 24 for strengthening of extremities and to improve neck range of motion Return to clinic in 1-2 months to review results (2) Neuropathy involving both lower extremities: Code(s): G57.93 - Unspecified mononeuropathy of bilateral lower limbs Category: Medical Plan: See above (3) Knee pain, bilateral: Code(s): M25.561 - Pain in right knee; M25.562 - Pain in left knee Category: Medical Qualifiers: Chronicity: chronic Qualified Code(s): M25.561 - Pain in right knee; M25.562 - Pain in left knee; G89.29 - Other chronic pain Plan: See above Orders: Orders Erythrocyte Sedimentation Rate Today M25.50 - Pain in unspecified joint NE electromyogram (EMG) Today G57.93 - Unspecified mononeuropathy of bilateral lower limbs, M62.81 - Muscle weakness (generalized), M79.601 - Pain in right arm, M79.602 - Pain in left arm, R20.2 - Paresthesia of skin C Reactive Protein Today M25.50 - Pain in unspecified joint TSH reflex Free T4 Today G57.93 - Unspecified mononeuropathy of bilateral lower limbs Hemoglobin A1c Today G57.93 - Unspecified mononeuropathy of bilateral lower limbs XR Knee Pascual 3V Today M25.561 - Pain in right knee, M25.562 - Pain in left knee NE nerve conduction velocity Today G57.93 - Unspecified mononeuropathy of bilateral lower limbs, M62.81 - Muscle weakness (generalized), M79.601 - Pain in right arm, M79.602 - Pain in left arm, R20.2 - Paresthesia of skin Medications: New meloxicam With food 15 mg PO DAILY 30 tabs 2RF Coding Level of Care Code Est Pt Level 4 (54637) Complex EM visit Add On G2211 Diagnoses Multiple joint pain M25.50 Neuropathy involving both lower extremities G57.93 Chronic pain of both knees M25.561; M25.562; G89.29 Chronicity: chronic Documented By:Raymundo Turk MD11/09/24 0810 Signed By:<Electronically signed by Raymundo Turk MD>11/09/24 0944 M25.50 Pain in unspecified joint M62.81 Muscle weakness (generalized) Multiple joint pain, muscle weakness, improve strnegth and ROM in upper extremeties and lower extremeties signed by Dr. Turk 10/13/24 Assessment: Pt is a 44 y/o female with PMH significant for: Superficial venous thrombosis of right upper extremity Major depressive disorder Reactive airway disease Hematuria Fibromyalgia Fusion L1/L2 Fibroadenoma Esophageal dysmotility GODWIN (generalized anxiety disorder) Dry eye syndrome Chronic back pain Anemia H/O lumbosacral spine surgery xrays mention Roldan rods mild neurocognitive disorder due to multiple etiologies per chart referred to PT from director medicaid Dr. Turk Start PT November 24 for strengthening of extremities and to improve neck range of motion Return to clinic in 1-2 months to review results (2) Neuropathy involving both lower extremities: Code(s): G57.93 - Unspecified mononeuropathy of bilateral lower limbs Category: Medical Plan: See above (3) Knee pain, bilateral: Code(s): M25.561 - Pain in right knee; M25.562 - Pain in left knee Category: Medical Qualifiers: Chronicity: chronic Qualified Code(s): M25.561 - Pain in right knee; M25.562 - Pain in left knee; G89.29 - Other chronic pain Plan: was seen in the office on 11/09/24. Pt recently underwent xrays of foot, hip, L/S, hand, shoulder, and C/S on 10/18/24. Awaiting MRI of L and R hand on 12/08/24. Pt was recently prescribed meloxicam (to DC ibuprofen after MRI). Pt with history of chronic pain. Pt exhibits fair prognosis for PT based on history of chronic pain and lack of mobility. She expressed expectations of PT being more passive vs active and she was educated that therapy will consist of AAROM/AROM teaching her moving her body and actively participating as opposed to heat and massage. Pt reports receiving trigger point injections every three months in her neck. Chely will benefit from attending skilled PT services to implement a cervical/postural/shoulder ROM/strength/stab program 1x/week x 4 weeks to address status and assess goals. She will be given a written HEP to improve her symptoms. She presented to the evaluation exhibiting sx of an active URI (stating her symptoms started the day before). She notes past history a few years back with limited gains. Frequency and Duration: The patient will be seen 1x/week x 4 weeks Short Term Goals: 1. Initiate self care management/strategies to reduce pain/ improve mobility. 2. Increase cervical AROM by 25% all planes. 3. Improve awareness of postural musculature. 4. Demonstrate strength of periscap musculature. 5. Improve SPADI and NDI scoring. Fci Goals: 1. I HEP with self care management. 2. Demonstrate log roll technique and good body mechanics/lifting for ADLS/IADLS. 3. Strength shoulder extensors 5/5 L>R. 4. Demonstrate ER of RTC 5/5 L>R. 5. Improvement in SPADI/NDI scoring from initial assessment. Treatment Plan: Modalities to reduce pain, spasms and effusion. Manual therapy to restore motion and function. Therapeutic exercise to improve strength and flexibility. Neuromuscular re-education for posture and balance. Therapeutic activities to return to functional activities of daily living. Electronically signed by: Va Winter, PT, DPT Please sign and return to therapist. Thank you for your referral.
--- NOTE | 2024-12-29 14:39 | MHC.PT.OD ---
[facility] [place] [facility] [place] [facility] [address] [facility] [phone] F: [phone] F: [phone] F: [phone] Physical Therapy Daily Note Diagnosis: Start PT November 24 for strengthening of extremities and to improve neck range of motion Return to clinic in 1-2 months to review results (2) Neuropathy involving both lower extremities: Code(s): G57.93 - Unspecified mononeuropathy of bilateral lower limbs Category: Medical Plan: See above (3) Knee pain, bilateral: Code(s): M25.561 - Pain in right knee; M25.562 - Pain in left knee Category: Medical Qualifiers: Chronicity: chronic Qualified Code(s): M25.561 - Pain in right knee; M25.562 - Pain in left knee; G89.29 - Other chronic pain Plan: See above Orders: Orders Erythrocyte Sedimentation Rate Today M25.50 - Pain in unspecified joint NE electromyogram (EMG) Today G57.93 - Unspecified mononeuropathy of bilateral lower limbs, M62.81 - Muscle weakness (generalized), M79.601 - Pain in right arm, M79.602 - Pain in left arm, R20.2 - Paresthesia of skin C Reactive Protein Today M25.50 - Pain in unspecified joint TSH reflex Free T4 Today G57.93 - Unspecified mononeuropathy of bilateral lower limbs Hemoglobin A1c Today G57.93 - Unspecified mononeuropathy of bilateral lower limbs XR Knee Pascual 3V Today M25.561 - Pain in right knee, M25.562 - Pain in left knee NE nerve conduction velocity Today G57.93 - Unspecified mononeuropathy of bilateral lower limbs, M62.81 - Muscle weakness (generalized), M79.601 - Pain in right arm, M79.602 - Pain in left arm, R20.2 - Paresthesia of skin Medications: New meloxicam With food 15 mg PO DAILY 30 tabs 2RF Coding Level of Care Code Est Pt Level 4 (97320) Complex EM visit Add On G2211 Diagnoses Multiple joint pain M25.50 Neuropathy involving both lower extremities G57.93 Chronic pain of both knees M25.561; M25.562; G89.29 Chronicity: chronic Documented By:Raymundo Turk MD11/09/24 0810 Signed By:<Electronically signed by Raymundo Turk MD>11/09/24 0944 M25.50 Pain in unspecified joint M62.81 Muscle weakness (generalized) Multiple joint pain, muscle weakness, improve strnegth and ROM in upper extremeties and lower extremeties signed by Dr. Turk 10/13/24 Date of Surgery: Date of Evaluation: 11/24/24 Date of Treatment: 12/29/24 Treatments to Date: Cancellations to Date: No Shows to Date: Authorized Visits: 3 Insurance End Date: Precautions/ Contraindications:chronic pain, Subjective: Pt presents to office, mid session she informs therapist that she has been started on Eliquis Wednesday due to having a DVT in her L UE. Notes started 1 week after difficulty with infusion line in L elbow. Pain Score and Location: Objective Flowsheet: Tests & Measures Exercises Pt offered option of active warm-up in goal of moving body to prep for exercise; Defers trial of NUSTEP combo cycle for gentle warm-up UE/LE combo due to her knees, pt encouraged to trial SCIFIT for UE movement fwd/bkwd x 3 minutes but noted to report worsening pain so this was stopped. Hook-lying for MHP to C/S and back x 10 minutes in effort to increase tissue extensibility followed by open books in side-lying with UE supported x 3R each side, AAROM flexion with cane x 10 sec hold x 5R L>R, AAROM scaption with cane x 10 sec hold x 5R. After completion of AAROM of L UE patient informs therapist that she has a DVT and was started on Eliquis. Education re: gentle cervical rotation and movement frequently in supine with support of neck x 5R x 4R each side. Seated trunk rotation and cervical rotation initiated x 5R L>R in effort to increase tissue extensibility. STM to L>R upper trap in effort to increase tissue extensiblity post stretching while seated this date. Modalities Assessment: 12/29/24: Pt NS for 8:00am appt today. Second no call, no show. Pt later arrives at the office at another time unable to be accommodated due to multiple patients having appts at that time. Pt has made poor progress with PT. At this time patient is encouraged to follow up with Dr. Turk. Pt noted to be wearing a soft collar on her neck. Pt previously educated against wearing brace on her neck as that is decreasing her AROM and contributes to her stiffness. It is unclear where she obtained neck brace from. She was sent to PT for shoulder and neck ROM mobility. Pt encouraged to follow up with Dr. Turk due to lack of significant gain with PT. Patient has poor communication with therapist; ie) Last session on 12/15/24 when she came in therapist asked her how she was doing and she failed to tell me about new onset of L UE DVT until midway through the session after we were doing AAROM of shoulders. AAROM activities were stopped when patient told therapist. She states after her last infusion she had arm pain (had difficulty getting IV in), went to ER at [facility] and was placed on Eliquis after confirmation of l UE DVT. Patient will be placed on hold at this time and is encouraged to follow up with referring provider. PT Plan: 1x/week x 4- weeks cervical/shoulder AROM/AAROM postural stab strength program Short Term Goals: 1. Initiate self care management/strategies to reduce pain/ improve mobility. 2. Increase cervical AROM by 25% all planes. 3. Improve awareness of postural musculature. 4. Demonstrate strength of periscap musculature. 5. Improve SPADI and NDI scoring. 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 I HEP with self care management. 2. Demonstrate log roll technique and good body mechanics/lifting for ADLS/IADLS. 3. Strength shoulder extensors 5/5 L>R. 4. Demonstrate ER of RTC 5/5 L>R. 5. Improvement in SPADI/NDI scoring from initial assessment. Electronically signed by: Va Winter, PT, DPT
== END 2025-01-08 13:08 | disposition home or self-care (01) ==
LOC: HO.PTS 14:03
PROVIDERS: Visit Provider Internal Medicine Rheumatology
DX: M62.81 Muscle weakness (generalized) (principal); M25.50 Pain in unspecified joint
CPT/HCPCS: 97110; 97140; 97162

== ENCOUNTER → 2024-12-27 16:05 | Outpatient (BNV) | payer OTHER, SELFPAY | PROVIDERS: PCP Internal Medicine; Visit Provider Radiology Diagnostic Radiology | DX: M79.641 Pain in right hand (principal) | CPT/HCPCS: 73220 ==

== ENCOUNTER 2024-12-27 16:06 | Outpatient (REF) | payer OTHER, SELFPAY ==
--- NOTE | ~2024-12-27 | MR_ITS ---
EXAM: MRI of the left hand without and with IV contrast TECHNIQUE: Multiplanar - multisequence imaging through an upper extremity, left hand , was performed without and with contrast. Contrast: 6 mL Gadavist. INDICATION: Joint pain PRIOR: December 08, 2024 MRI and October 18, 2024 x-ray FINDINGS: Ligaments: Collateral ligaments appear intact. Volar plates appear Intact. Muscles, tendons, pulleys: There is no muscle edema, atrophy, or fatty streaking. Tendons are grossly intact and there is no bowstringing. Articular cartilage/Joint capsular structures: No joint effusion is evident. Joint capsule structures appear intact. Cartilage is grossly intact. Bones/Marrow: There is no marrow edema. There are no marrow replacing lesions. No erosions are identified. MR/MR hand LT wo/w con IMPRESSION: Unremarkable left hand. Electronically signed by: Davian Wilder MD 12/27/2024 05:18 PM EDT
--- OUTSIDE RECORDS SUMMARY | 2024-12-27 21:58 | XMS_ITS | Encounter Summary ---
Author Organization [facility] Address [address] [place], [place] [id number] Care Team Providers Care Doughnut Fryer Name Role Phone Bryan Estrella MD Primary Care Provider Encounter Details Date Type Department Care Team ([facility] Contact Info) Description 03/20/2024 Scanned Document [facility] Rheumatology [address] [address] Clemente Atkinson, DO [address] [address] Social History Tobacco Use Types Packs/Day Years [...] on filedocumented in this encounter Care Teams Doughnut Fryer Relationship Specialty Start Date End Date Bryan Estrella MD [address] [place] [address] [place] [phone] PCP - General 03/20/24 documented as of this encounter
--- OUTSIDE RECORDS SUMMARY | 2024-12-27 21:58 | XMS_ITS | Clinical Summary ---
Author Organization [facility] Address [address] [place] [address] Care Team Providers Care Tire Changer Name Role Phone Bryan Estrella MD Primary Care Provider [phone] Allergies Active Allergy Reactions Criticality Noted Date [...] age to complete this topic Care Teams Tire Changer Relationship Specialty Start Date End Date Bryan Estrella MD [address] [place] [phone] PCP - General Internal Medicine 07/31/20
--- OUTSIDE RECORDS SUMMARY | 2024-12-27 21:58 | XMS_ITS | Clinical Summary ---
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); Abnormal loss of weight; 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; COVID-19 long hauler manifesting chronic decreased mobility and endurance; COVID-19 mark mariuler manifesting chronic concentration deficit 11/02/2024 Social Work [facility] at [address] [facility] [address] [place] [address] Angela Ricketts LCSW from Last 3 Months Social History Tobacco Use Types Packs/Day Years Used Date Smoking Tobacco: Never Smokeless Tobacco: Never Tobacco Cessation:Counseling Given: Not Answered Alcohol Use Standard Drinks/Week Comments Never 0 (1 standard drink = 0.6 oz pur e alcohol) [facility] Utilities Answer Date Recorded In the past [...] your living situation today? [facility] live 08/11/2024 Housing Stability [...] Description 03/19/2025 3:00 PM EST Follow Up [facility] at [address] [place] [address] [address] [place], [place] [address] Hedy Pastrana MD [address] [place] [phone] 03/19/2025 3:30 PM EST Social Work [facility] at [address] [place] [phone] Health Maintenance Due Date Last Done Comments [...] GENERIC COMMERCIAL GENERIC COMMERCIAL GENERIC Care Teams Environmental Science Program Director Relationship Specialty Start Date End Date Bryan Estrella MD [address] [place] [phone] PCP - General Internal Medicine 01/12/24
--- OUTSIDE RECORDS SUMMARY | 2024-12-27 21:58 | XMS_ITS | Clinical Summary ---
Author Organization [facility] Address [address] [place] [id number] Care Team Providers Care Dioramist Name Role Phone Bryan Estrella MD Primary [...] to complete this topic Insurance Care Teams Dioramist Relationship Specialty Start Date End Date Bryan Estrella MD [address] [place] [place] [address] PCP - General 03/20/24
--- OUTSIDE RECORDS SUMMARY | 2024-12-27 21:58 | XMS_ITS | Clinical Summary ---
Author Organization [facility] [address] [place] [address] [place] [phone] Phone Care Team Providers Care Air Traffic Control Equipment Repairer Name Role Phone Bryan Estrella MD Primary Care Provider [phone] Allergies Active Allergy Reactions Criticality Noted Date [...] mouth 2 (two) times a day. 04/16/19 Active lidocaine (LIDODERM) 5 % patch Place [...] (one) time each day. 04/24/19 21 Active aluminum-magnesium hydroxide 200-200 mg/5 mL suspension Take 5 [...] inhalation (INSPIREASE) device Use with inhalers 07/11/19 Active TENS unit electrodes 2X2 pad 2 Each by Does not apply route daily. 04/14/19 20 Active heating pads pad 1 Each by Does not apply route daily. Large heating pad for back 04/14/19 Active oxyCODONE (OxyCONTIN) 20 mg 12 hr abuse-deterrent tablet 1 Tab daily. 04/01/19 19 Active clonazePAM (KlonoPIN) 0.5 mg tablet Take 1 tablet (0.5 mg total) by mouth 2 (two) times a day if needed. Active carisoprodoL (SOMA) 350 mg tablet Take 1 tablet (350 mg total) by mouth at bedtime. 11/18/19 18 Active white petrolatum-mineral oiL (Refresh P.M.) 57.3-42.5 % ointment apply [...] dose as needed 12/06/19 14 Active peg 069-fpsvwxfhjsbl-gdu cerin 1-0.2-0.2 % drops Place 1 Drop into [...] REPEAT IN 2 HOURS 01/21/20 24 Active g-vaemny-qdtblacx (NAC) 600 mg capsule Take 1 capsule [...] SKIN ONCE MONTHLY 05/13/19 25 Active glucosamine og 2KCl-chondroit 500-400 mg tablet Take 1 tablet [...] still symptomatic. 2 tablet 06/24/19 25 Active clotrimazole-betamet hasone (LOTRISONE) 1-0.05 % cream Apply 2 times daily for 5-7 days as needed for itching 15 g 1 06/24/19 25 Active sertraline (ZOLOFT) 50 mg tablet TAKE 1 TABLET BY MOUTH ONCE DAILY. STOP ESCITALOPRAM) 06/23/19 25 Active Drysol Dab-O-Matic 20 % external solution APPLY TOPICALLY DIRECTED ONCE DAILY AT BEDTIME IF NEEDED FOR EXCESSIVE SWEATING 07/30/19 25 Active fezolinetant 45 mg tabletIndications:Me nopausal vasomotor syndrome Take 45 mg by mouth 1 (one) time each day. 90 tablet 1 08/10/19 25 025 Active Additional Information Patient not taking.Reported on 11/14/2024 medroxyPROGESTERone 150 mg/mL injection Inject 1 mL (150 mg total) into the shoulder, thigh, or buttocks once every twelve (12) weeks. 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 09/25 normal Dos Rios/EGD. Iron infusions. Periodic CBC to be checked by PCP Weak urinary stream 02/27/2014 Fibromyalgia 03/21/2013 Chronic daily headache 10/26/2010 Overview (01/31/2024): Dr Pierre; Dr Angeles Dermoid 10/09/2010 Overview (01/31/2024): Stable in size from 2009 to 2014 Major depressive disorder 07/23/2010 Overview (01/31/2024): Abilify caused side effects. Psychiatry prescribing, [facility] Migraines 07/23/2010 Anxiety 07/13/2008 Chronic back pain 07/13/2008 Overview (01/31/2024): Surgery- Dr. Barillas 07/25/09; justin Ty PVSS Encounters Date Type Department Care Team Description 12/14/2024 Telephone Obstetrics & Gynecology - [address] [phone] Mirta Sampson CNM 12/13/2024 9:29 AM EDT - 12/13/2024 11:59 PM EDT Hospital Encounter [facility] Ultrasound [address] [place] [phone] Pain in right arm Discharge Disposition: Home or Self Care 12/13/2024 8:30 AM EDT Office Visit [facility] Hematology Oncology [address] [place] [phone] Lyudmila Leal PA Superficial thrombophlebitis of left upper extremity (Primary Dx); Pain of left upper extremity; Pain in right arm 12/13/[address] [facility] Hematology Oncology [address] [place] [phone] Jazz Godinez [place] 12/12/[address] [facility] Hematology Oncology [address] [place] [phone] Sonal Leslie MA 12/07/2024 1:00 PM EDT - 12/07/2024 11:59 PM EDT Hospital Encounter [facility] Infusion Center [address] [place] [phone] Heath Whitehead MD Anemia, unspecified type (Primary Dx) Discharge Disposition: Home or Self Care 12/01/2024 1:00 PM EDT - 12/01/2024 11:59 PM EDT Hospital Encounter [facility] Infusion Center [address] [place] [phone] Heath Whitehead MD Anemia, unspecified type (Primary Dx) Discharge Disposition: Home or Self Care 11/23/2024 2:00 PM EDT - 11/23/2024 11:59 PM EDT Hospital Encounter [facility] Infusion Center [address] [place] [phone] Heath Whitehead MD Anemia, unspecified type (Primary Dx) Discharge Disposition: Home or Self Care 11/14/2024 2:14 PM EDT - 11/14/2024 11:59 PM EDT Hospital Encounter [address] [phone] Heath Whitehead MD Anemia, unspecified type (Primary Dx) Discharge Disposition: Home or Self Care 11/08/2024 1:00 PM EDT Office Visit Obstetrics & Gynecology - [address] [phone] Kiersten Denton CNM Surveillance of contraceptive injection (Primary Dx) 11/02/2024 11:15 AM EDT Office Visit [facility] Hematology Oncology [address] [place] [phone] Heath Whitehead MD Iron deficiency anemia due to chronic blood loss (Primary Dx); Protein S deficiency (CMS/HCC V24) 11/02/[address] [facility] Hematology Oncology [address] [place] [phone] Sonal Leslie [place] 10/30/2024 1:30 PM EDT Office Visit [facility] Hematology Oncology [address] [place] [phone] Heath Whitehead MD Protein S deficiency (CMS/HCC V24) (Primary Dx); Anemia, unspecified type 10/18/2024 3:02 PM EDT - 10/18/2024 11:59 PM EDT Hospital Encounter Radiology Department - [address] [phone] Other abnormal and inconclusive findings on diagnostic imaging of breast Discharge Disposition: Home or Self Care 10/18/2024 3:00 PM EDT - 10/18/2024 11:59 PM EDT Hospital Encounter Radiology Department - [address] [phone] Encounter for screening mammogram for malignant neoplasm of breast Discharge Disposition: Home or Self Care 10/04/2024 Billing Patient Not Present Gastroenterology - [address] [place] [address] Shaji Benavides MD Iron deficiency anemia due to chronic blood loss (Primary Dx) from Last 3 Months Immunizations Immunization Administration [...] Date Site/Laterality Comments FLEXIBLE SIGMOIDOSCOPY 07/23/2008 PROCEDURE: DE SIGMOIDOSCOPY FLX DX W/COLLJ SPEC BR/WA IF PFRMD; COMMENT: Normal to 70 cm ESOPHAGOGASTRODUODENOSCOPY 07/23/2008 PROCEDURE: DE EGD TRANSORAL BIOPSY SINGLE/MULTIPLE; COMMENT: Visually normal, duodenal bx: Normal. BACK SURGERY 07/25/2009 PROCEDURE: HISTORICAL BACK SURGERY; COMMENT: Dr. Barillas COLONOSCOPY 09/05/2020 PROCEDURE: HISTORICAL COLONOSCOPY; COMMENT: negative ESOPHAGOGASTRODUODENOSCOPY 09/05/2020 PROCEDURE: DE EGD TRANSORAL BIOPSY SINGLE/MULTIPLE; COMMENT: negative, biopsy pending OTHER SURGICAL HISTORY 10/15/2022 Left PROCEDURE: DE BX BREAST W/DEVICE 1ST LESION STEREOTACTIC GUID [...] DX:Anemia; COMME NT: Dr Whitehead. 09/25 normal Dos Rios/EGD. Iron infusions. Periodic CBC to be checked by PCP Attention deficit 06/04/2019 DX:Attention d eficit Chronic back pain 07/13/2008 DX:Chronic nura k pain; COMMENT: Surgery- Dr. Barillas 07/25/09; justin Ty [facility] Chronic cough 08/03/2020 DX:Chronic cough ; COMMENT: [...] COMMENT: Abilify caused side effects. Psychiatry prescribing, [facility] Vomiting 07/17/2009 DX:Vomiting; COM MENT: 05/15- [...] Mother Alive Sister Alive 1,healthy, live s [facility] Social History Tobacco Use Types Packs/Day Years Used Date Smoking Tobacco: Never Smokeless Tobacco: Never Tobacco Cessation:Counseling Given: Not Answered Alcohol Use Standard Drinks/Week Comments Yes 0 [...] Sign Reading Time Taken Comments Blood Pressure 95/64 12/13/2024 8:50 AM EDT Pulse 104 12/13/2024 8:50 AM EDT Temperature 36.9 C (98.4 F) 12/13/2024 8:50 AM EDT Respiratory Rate 18 12/01/2024 1:19 PM EDT Oxygen Saturation 99% 12/13/2024 8:50 AM EDT Inhaled Oxygen Concentration - - Weight 59 kg (130 lb) 12/13/2024 8:50 AM EDT STA ZHANG WT Height 167.6 cm (5' 6 ) 12/13/2024 8:50 AM EDT Body Mass Index 20.98 12/13/2024 8:50 AM EDT Plan of Treatment Upcoming Encounters Date Type Department Care Team (Late st Contact Info) Description 01/01/2025 2:15 PM EDT Office Visit Obstetrics and Gynecology [address] [phone] Nicolle Davis, [facility] [address] [place] [phone] 02/05/2025 1:00 PM EST Clinical Support Obstetrics & Gynecology - [address] [phone] 02/06/2025 3:00 PM EST Office Visit [facility] Hematology Oncology [address] [place] [phone] Heath Whitehead MD [address] [place] [address] Health Maintenance Due Date Last Done Comments [...] Procedure Name Priority Date/Time Associated Diagnosis Comments VAS US DUPLEX UPPER EXT VENOUS BILAT STAT 12/13/2024 10:11 AM EDT Pain in right arm CBC WITH AUTO DIFFERENTIAL Routine 10/30/2024 2:20 [...] Recently Relevant to Health Maintenance Results * Vascular US duplex upper extremity venous bilateral (12/13/2024 10:11 AM EDT) Anatomical Region Laterality Modality Vascular, Abdomen Ultrasound 12/13/2024 10:1 5 AM EDT Impressions 12/13/2024 10:20 AM EDT Impression: 1. Superficial phlebitis involving a segment of the left basilic vein beginning at the antecubital fossa and extending into the forearm. (This is a separate, more distal segment of the vessel than was involved by superficial phlebitis on the previous study and is felt to be acute.) 2. No evidence of deep vein thrombosis in either upper extremity. T[place]ad [place] ([id number]) -------- FINAL REPORT -------- Dictated By: Shameka Merlos Dictated Date: 12/13/2024 10:15 ET Assigned Physician: Shameka Merlos Reviewed and Electronically Signed By: Shameka Merlos Signed Date: 12/13/2024 10:20 ET Workstation ID: [id number] Transcribed By: Self Edit Transcribed Date: 12/13/2024 10:15 ET Narrative 12/13/2024 10:20 AM EDT History: Bilateral upper extremity pain. Protein S deficiency. Comparison: Left upper extremity venous ultrasound 04/04/24 Findings: Duplex and color Doppler imaging of the deep veins of both upper upper extremities was performed. The accessible portions of the internal jugular and subclavian veins are patent and exhibit normal size, spontaneous and phasic venous flow with Doppler. The bilateral axillary and brachial veins are also patent, with normal spontaneous and phasic venous flow. Where accessible, these veins compress completely. A segment of the left basilic vein, beginning in the antecubital fossa and extending into the forearm, is distended and noncompressible, consistent with superficial phlebitis. The left cephalic vein in the right basilic and cephalic veins are patent and compressible throughout. Procedure Note Shameka Merlos MD - 12/13/2024 History: Bilateral upper extremity pain. Protein S deficiency. Comparison: Left upper extremity venous ultrasound 04/04/24 Findings: Duplex and color Doppler imaging of the deep veins of both upper upperextremities was performed. The accessible portions of the internal jugular and subclavian veins arepatent and exhibit normal size, spontaneous and phasic venous flow withDoppler. The bilateral axillary and brachial veins are also patent, withnormal spontaneous and phasic venous flow. Where accessible, these veinscompress completely. A segment of the left basilic vein, beginning in the antecubital fossa andextending into the forearm, is distended and noncompressible, consistentwith superficial phlebitis. The left cephalic vein in the right basilicand cephalic veins are patent and compressible throughout. IMPRESSION: Impression: 1. Superficial phlebitis involving a segment of the left basilic veinbeginning at the antecubital fossa and extending into the forearm. (Thisis a separate, more distal segment of the vessel than was involved bysuperficial phlebitis on the previous study and is felt to be acute.) 2. No evidence of deep vein thrombosis in either upper extremity. Tanna ARIZA ([id number]) -------- FINAL REPORT -------- Dictated By: Shameka Merlos Dictated Date: 12/13/2024 10:15 ET Assigned Physician: Shameka Merlos Reviewed and Electronically Signed By: Shameka Merlos Signed Date: 12/13/2024 10:20 ET Workstation ID: [id number] Transcribed By: Self Edit Transcribed Date: 12/13/2024 10:15 ET Lyudmila ARIZA CV VASCULAR PROCEDURES Final Result * (ABNORMAL) Vitamin B12 and folate (10/30/2024 2:20 PM EDT) [facility] Vitamin B-12 1,945(H) 250 - 900 pcg/mL LAB CHEMISTRY METHOD 10/30/2024 5:40 PM EDT [facility] Folate 12.8 2.8 - 17.0 ng/ml LAB CHEMISTRY METHOD 10/30/2024 5:40 PM EDT [facility] Blood Venous blood specimen / Unknown Venipuncture / Unknown 10/30/2024 2:20 PM EDT 10/30/2024 4:30 PM EDT Heath Whitehead MD LAB BLOOD ORDERABLES Final R esult [facility] [address] [place] [address], * (ABNORMAL) CBC auto differential (10/30/2024 2:20 PM EDT) [facility] WBC 5.1 4.8 - 10.8 K/mcL LAB HEMETOLOGY METHOD 10/30/2024 5:00 PM EDT [facility] RBC 3.10(L) 3.80 - 4.80 M/mcL LAB HEMETOLOGY METHOD 10/30/2024 5:00 PM [facility] Hemoglobin 8.5(L) 11.5 - 16.0 g/dL LAB HEMETOLOGY METHOD 10/30/2024 5:00 PM [facility] Hematocrit 28.2(L) 35.0 - 47.0 % LAB HEMETOLOGY METHOD 10/30/2024 5:00 PM [facility] MCV 92.2 79.0 - 98.0 FL LAB HEMETOLOGY METHOD 10/30/2024 5:00 PM [facility] MCH 27.8 27.0 - 32.0 pcg LAB HEMETOLOGY METHOD 10/30/2024 5:00 PM [facility] MCHC 30.1(L) 32.0 - 37.0 g/dL LAB HEMETOLOGY METHOD 10/30/2024 5:00 PM [facility] RDW 14.7 11.0 - 15.0 % LAB HEMETOLOGY METHOD 10/30/2024 5:00 PM [facility] Platelets 188 130 - 400 K/mcL LAB HEMETOLOGY METHOD 10/30/2024 5:00 PM [facility] MPV 12.5(H) 7.0 - 11.0 FL LAB HEMETOLOGY METHOD 10/30/2024 5:00 PM [facility] NRBC 0.0 <1.0 % LAB HEMETOLOGY METHOD 10/30/2024 5:00 PM [facility] NRBC Absolute 0.00 <0.10 K/mcL LAB HEMETOLOGY METHOD 10/30/2024 5:00 PM [facility] Neutrophils Relative 60.9 % LAB HEMETOLOGY METHOD 10/30/2024 5:00 PM [facility] Lymphocytes Relative 29.4 % LAB [facility]EMETOLOGY [facility] Monocytes Relative 7.5 % LAB HEMETOLOGY METHOD 10/30/2024 5:00 PM [facility] Eosinophils Relative 1.4 % LAB HEMETOLOGY METHOD [facility] Basophils Relative 0.4 % LAB HEMETOLOGY METHOD 10/30/2024 5:00 PM [facility] Immature Granulocytes Relative 0.4 % LAB HEMETOLOGY METHOD 10/30/2024 5:00 PM [facility] Neutrophils Absolute 3.08 1.50 - 7.00 K/mcL LAB HEMETOLOGY METHOD 10/30/2024 5:00 PM [facility] Lymphocytes Absolute 1.49 1.00 - 5.00 K/mcL LAB HEMETOLOGY METHOD 10/30/2024 5:00 PM [facility] Monocytes Absolute 0.38 0.20 - 1.00 K/mcL LAB HEMETOLOGY METHOD 10/30/2024 5:00 PM [facility] Eosinophils Absolute 0.07 0.00 - 0.50 K/mcL LAB HEMETOLOGY METHOD 10/30/2024 5:00 PM [facility] Basophils Absolute 0.02 0.00 - 0.20 K/mcL LAB HEMETOLOGY METHOD 10/30/2024 5:00 PM [facility] Immature Granulocytes Absolute 0.02 0.00 - 0.03 K/mcL LAB HEMETOLOGY METHOD 10/30/2024 5:00 PM [facility] Blood Venous blood specimen / Unknown Venipuncture / Unknown 10/30/2024 2:20 PM EDT 10/30/2024 4:30 PM EDT us Heath Whitehead MD LAB BLOOD ORDERABLES Final R esult [facility] [address] [place] [address], [place] [phone] * (ABNORMAL) Reticulocyte count (10/30/2024 2:20 PM EDT) Retic Ct Abs 0.050 0.030 - 0.090 M/mcL LAB HEMETOLOGY METHOD 10/30/2024 5:00 PM EDT [facility] Retic Ct Pct 1.6 0.7 - 1.7 % LAB HEMETOLOGY METHOD 10/30/2024 5:00 PM EDT [facility] Immature Retic Fract 16.6(H) 2.3 - 15.9 % LAB HEMETOLOGY METHOD 10/30/2024 5:00 PM EDT [facility] Reticulocyte Hemoglobin 29.2 >29.0 pcg LAB HEMETOLOGY METHOD 10/30/2024 5:00 PM EDT [facility] Blood Venous blood specimen / Unknown Venipuncture / Unknown 10/30/2024 2:20 PM EDT 10/30/2024 4:30 PM EDT Heath Whitehead MD LAB BLOOD ORDERABLES Final R esult [facility] [address] [place] [address], [place] [phone] * Haptoglobin (10/30/2024 2:20 PM EDT) Haptoglobin 88 16 - 200 mg/dL LAB CHEMISTRY METHOD 10/30/2024 5:18 PM EDT [facility] Blood Venous blood specimen / Unknown Venipuncture / Unknown 10/30/2024 2:20 PM EDT 10/30/2024 4:30 PM EDT Heath Whitehead MD LAB BLOOD ORDERABLES Final R esult [facility] [address] [place] [address], [place] [phone] * (ABNORMAL) Ferritin (10/30/2024 2:20 PM EDT) Ferritin 7(L) 8 - 252 ng/mL LAB CHEMISTRY METHOD 10/30/2024 5:20 PM EDT [facility] Blood Venous blood specimen / Unknown Venipuncture / Unknown 10/30/2024 2:20 PM EDT 10/30/2024 4:30 PM EDT Heath Whitehead MD LAB BLOOD ORDERABLES Final R esult Performing Organization Address City/[facility]/ZIP Co de Phone Number [facility] [address] [place] [address], [place] [phone] * US Breast Limited Left (10/18/2024 3:27 [...] mammography. Return to annual mammography. Mammo Location: [facility], [address] [place] [address], [address], . -------- FINAL REPORT -------- Dictated By: Moisés Dobson Dictated Date: 10/18/2024 15:23 ET Assigned Physician: Moisés Dobson Reviewed and Electronically Signed By: Moisés Dobson Signed Date: 10/18/2024 15:30 ET Workstation ID: [id number] Transcribed By: Self Edit Transcribed Date: 10/18/2024 [...] mammography. Return to annual mammography. Mammo Location: [facility], [address] [place] [address], [address], . -------- FINAL REPORT -------- Dictated By: Moisés Dobson Dictated Date: 10/18/2024 15:23 ET Assigned Physician: Moisés Dobson Reviewed and Electronically Signed By: Moisés Dobson Signed Date: 10/18/2024 15:30 ET Workstation ID: [id number] Transcribed By: Self Edit Transcribed Date: 10/18/2024 15:28 ET us Jazz Amador CN IMG US PROCEDURES F inal Result * [...] mammography. Return to annual mammography. Mammo Location: [facility], [address] [place] [address], [phone], . -------- FINAL REPORT -------- Dictated By: Moisés Dobson Dictated Date: 10/18/2024 15:23 ET Assigned Physician: Moisés Dobson Reviewed and Electronically Signed By: Moisés Dobson Signed Date: 10/18/2024 15:30 ET Workstation ID: [id number] Transcribed By: Self Edit Transcribed Date: 10/18/2024 [...] mammography. Return to annual mammography. Mammo Location: [facility], [address] [place] [address], [phone], . -------- FINAL REPORT -------- Dictated By: Moisés Dobson Dictated Date: 10/18/2024 15:23 ET Assigned Physician: Moisés Dobson Reviewed and Electronically Signed By: Moisés Dobson Signed Date: 10/18/2024 15:30 ET Workstation ID: [id number] Transcribed By: Self Edit Transcribed Date: 10/18/2024 15:28 ET Jazz Amador CNM IMG BI PROCEDURES F inal Result * Endoscopy, small bowel with ileum (10/04/2024 3:13 PM EDT) Anatomical Region Laterality Modality Endoscopy Historical Provider GI~PROCEDURE ORDERABLES F inal Result * Hepatitis C antibody (06/22/2024 3:46 PM EDT) Hepatitis C Antibody Negative Negative LAB CHEMISTRY METHOD 06/22/2024 5:39 PM EDT [facility] Blood Venous blood specimen / Unknown Venipuncture / Unknown 06/22/2024 3:46 PM EDT 06/22/2024 4:11 PM EDT Mirta Sampson CNM LAB BLOOD ORDERABLES Final Re sult [facility] [address] [place] [address], [place] [phone] * HIV 1,2 antibody, p24 antigen with reflex to differentiation (06/22/2024 3:46 PM EDT) HIV Combo AB/AG Negative Negative LAB CHEMISTRY METHOD 06/22/2024 5:40 PM EDT [facility] Blood Venous blood specimen / Unknown Venipuncture / Unknown 06/22/2024 3:46 PM EDT 06/22/2024 4:11 PM EDT Narrative [facility] - 06/22/2024 5:40 PM EDT This assay is a 4th generation assay allowing for earlier detection of HIV infection by detecting the presence of the HIV-1 p24 antigen as well as the traditional antibodies to HIV type 1 (including group O) and type 2. Use of a 4th generation assay is the current CDC recommendation for HIV screening. [facility] BLOOD ORDERABLES Final Re sult [facility] [address] [place] [address], [place] [phone] * HPV with reflex genotype (06/22/2024 3:01 PM EDT) Pathologist [facility] HPV Negative Negative LAB MICROBIOLOGY METHOD 06/23/2024 1:21 PM EDT [facility] Brushing/Spatula Cervix uteri structure / Unknown 06/22/2024 3:01 PM EDT 06/23/2024 4:55 AM EDT [facility] LAB MOLECULAR DIAGNOSTICS ORD ERABLES Final Result [facility] [address] [place] [address], [place] [phone] from Last 3 Months or Most Recently Relevant to Health Maintenance Insurance [address] [address] [facility] MEDICAID ADVANTAGE Care Teams Air Traffic Control Equipment Repairer Relationship Specialty Start Date End Date Bryan Estrella MD [address] [place] [address] PCP - General Internal Medicine 01/20/24
--- OUTSIDE RECORDS SUMMARY | 2024-12-27 21:58 | XMS_ITS | Encounter Summary ---
Author Organization [facility] Address [address] [place], [place] [id number] Care Team Providers Care Investment Recovery Technician Name Role Phone Bryan Estrella MD Primary Care Provider [phone] Encounter Details Date Type Department Care Team ([facility] Contact Info) Description 05/22/2024 Scanned Document [facility] Rheumatology [address] [address] Clemente Atkinson, [place] [address] Social History Tobacco Use Types Packs/Day Years [...] on filedocumented in this encounter Care Teams Investment Recovery Technician Relationship Specialty Start Date End Date Bryan Estrella MD [address] [place] [phone] PCP - General 03/20/24 documented as of this encounter
--- OUTSIDE RECORDS SUMMARY | 2024-12-27 21:58 | XMS_ITS | Encounter Summary ---
Demographics Address [address] [place] [address] [address] [place] [address] Mobile Phone Email Address Preferred Language Divehi Marital Status Unknown Confucianism Affiliation Unknown Race Unknown Ethnic Group Not or Lati no Author Organization [facility] Address [address] [place] [phone] Care Team Providers Care Residence Counselor Name Role Phone Bryan Estrella MD Primary Care Provider Encounter Details Date Type Department Care Team (Late st Contact Info) Description 08/11/2024 Scanned Document [facility] [address] [facility] [address] [place] [address] Hedy Pastrana MD 200 [facility] [address] [place] [address] Social History Tobacco Use Types Packs/Day Years Used Date Smoking Tobacco: Never Smokeless Tobacco: Never Alcohol Use Standard Drinks/Week Comments Never 0 (1 standard drink = 0.6 oz pur e alcohol) [facility] Utilities Answer Date Recorded In the [...] Description 03/19/2025 3:00 PM EST Follow Up [facility] at [address] [place] [id number] Hedy Pastrana MD [address] [place] [phone] 03/19/2025 3:30 PM EST Social Work [facility] at [address] [place] [phone] documented as of this encounter Visit Diagnoses Not on filedocumented in this encounter Care Teams Residence Counselor Relationship Specialty Start Date End Date Bryan Estrella MD [address] [place] [phone] PCP - General Internal Medicine 01/12/24 documented as of this encounter
== END 2024-12-27 16:07 | disposition home or self-care (01) ==
LOC: HO.MRI 16:06
PROVIDERS: PCP Internal Medicine; Visit Provider Internal Medicine Rheumatology
DX: M79.642 Pain in left hand (principal); M25.642 Stiffness of left hand, not elsewhere classified
CPT/HCPCS: 73220; A9585

== ENCOUNTER 2024-12-29 09:42 | Outpatient (AMB) | payer OTHER, SELFPAY ==
[2024-12-29 09:45] VITALS: BP 130/70; PULSE 77; O2SAT 99
--- NOTE | 2024-12-29 09:45 | A.OFFVIS_ITS ---
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 As directed] carisoprodol 350 mg PO BID-TID PRN cholecalciferol (vitamin D3) 1,250 mcg PO QWEEK 12 weeks cyanocobalamin (vitamin B-12) 1,000 mcg PO DAILY diclofenac sodium 1.5% 30 drps topical TID galcanezumab-gnlm (Emgality Pen) 120 mg subcut ONCE 30 days ibuprofen (IBU) 800 mg PO TID loratadine 10 mg PO DAILY lorazepam 1 mg PO BID magnesium glycinate 500 mg (5 x 100 mg magnesium) PO BEDTIME 90 days meloxicam 15 mg PO DAILY memantine 7 mg PO DAILY 30 days methylphenidate HCl 10 mg PO BID 30 days oxycodone ER (OxyContin) 20 mg PO BID pregabalin 200 mg PO BID riboflavin (vitamin B2) 400 mg PO DAILY 90 days rizatriptan 5 - 10 mg (0.5 - 1 x 10 mg) PO Q2H PRN 21 days sertraline 100 mg PO DAILY ubrogepant (Ubrelvy) 50 - 100 mg (0.5 - 1 x 100 mg) PO ONCE PRN 30 days HPI Comments Details: 44-yr-old female presents for f/u of migraine and hypersomnia. She reports the following interval changes: * She reports she had found benefit from a cervical pain stim trial, so she is considering undergoing a permanent pain stim placement, through Dr Nelson at [facility]. * She has started seeing rheumatology, Dr Turk at [facility], and is undergoing work- up for inflammatory arthritis. * She reports she has another LUE blood clot, which she states was triggered by a recent IV iron infusion tx. She states Dr Whitehead has dx'd her with Protein S def, and has started her on Eliquis tx and to avoid prolonged sitting, driving, or inactivity. * She also reports follow-up bone-density scan showed osteopenia. States her PCP advised her to start Calcium supplement, do weight bearing training, and avoid future corticosteroid injections. She is worried that corticosteroid injections have helped her bilateral knee pain. She is compliant with her vitamin-D supplement, which we prescribed. * She states she had a f/u with the [id number], and at the last appt she was told that she should not expect to ever be the person she was before. This was very unsettling for her, as she was hoping that eventually her post COVID cognitive difficulties would clear and she would be able to return to work. 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 However, they did increase her NAC dose. Dizziness: She still have bouts of intermittent dizziness, which prevents her from being able to drive. Her PCP gave her Meclizine, which helps her sleep and then wakes up feeling better. Migraine: She reports she is having 1-2 migraine attacks per week. She is using rizatriptan and ubrelvy, as needed good effect. Hypersomnia: She notes that her methylphenidate, 10 mg taken at 9am, helps her daytime sleepiness symptoms, but wears off by 5pm. However, she been avoiding 2nd dose as it was causing insomnia- was taking it later in the afternoon. 08/18/24, HPI: Pt reports she continues to struggle. She notes she now realizes that she is fernanda-menopausal. She was started on depo-provera- notes she cannot take estrogen d/t h/o recurrent blood clots. She also notes her lexapro was changed to zoloft, which she is tolerating better- not causing any residual sleepiness as most antidepressants have caused her sleepiness. She also reports she is undergoing a cervical spinal cord stimulator trial placement next week for treatment of ongoing cervicalgia and next stiffness- by Dr Nelson at [facility]. She continues to have chronic lumbar pain as well- however Dr. Nelson wanted to address the cervical symptoms 1st. She is hoping to eventually reduce her chronic opioid pain tx- d/t her concern for her general health and chronic constipation. August 2023 in-lab sleep study did not show any evidence of sleep apnea or PLMS. She continues to have excessive daytime sleepiness- though methylphenidate dose in the morning is helpful. She recently had a [id number] clinic evaluation in [place]. She states they primarily addressed her chronic STM difficulties, forgetfulness, poor recall of the time when she was sick with Covid-19. Pt reports she was advised that the cognitive difficulties would take time to resolve. Advised her to pace her activities, and to increase the NAC 600mg from qd to 1200mg tid. Offered dx- Myalgic Encephalomyelitis/Chronic Fatigue Syndrome. Patient reports, she has completed her course of Eliquis- as the last blood clot was considered superficial thought to be triggered by a blood draw. She is still f/b Dr Whitehead at [facility] heme/onc- and she can f/u w/ him prn for her h/o anemia. Interval lab results showed persistent anemia with 05/16/2024 H&H 8.3/26.6 low, iron 33 low, % saturation the low, ferritin 8 low vitamin B6 29 high, vitamin B12 greater than 2000, vitamin-D 28 low, folate 7 within normal limits, normal rheumatoid factor and NICO screen. She is scheduled for [facility] rheumatology consult in Oct. Pt reports today she is most bothered by her BUE hand and finger dull aching pain and weakness. States this pain is triggered by anytime she falls asleep- which is worse upon waking in the am but can also occur after she falls asleep unintentionally after her am methylphenidate wears off, and then lasts for hours. Her hand grasp feels weak. She does not have wrist splints. She continues to have neck pain and stiffness- states her last cervical nerve block was not helpful. Her PCP previously gave her a course of steroid course 2 weeks ago, which helped but no she is a not continue this for long. She recently saw [facility] rheumatology, where she had normal hand x-rays, and did not offer new treatment options. In the past, she did OT, wrist splints in the past, which did not help. Had a right elbow injection once, years ago, but caused right 1st finger numbness. In regards to her migraines, she reports the Emgality continues to be helpful, but does wear off some at the end of the injection cycle. She notes that the breakthrough migraine attacks are not as severe or debilitating- and is more responsive to her prn Ubrelvy. She is using Rizatriptan when home, as its onset is quicker but makes her sleepy. Baseline headache characteristics: Aura: No preceding aura. During headache may have blurry vision, halos, f lashing lights, weekly lines, floaters, difficulty focusing eyes. Difficulty speaking, stuttering speech, word-finding difficulty. Pain intensity: Severe Location, quality, characteristics: Throbbing in bilateral but more left-sided temples and frontal region, can also be on top of head. Associated symptoms? Severe photophobia, severe phonophobia, osmophobia, nausea and vomiting, severe dizziness, difficulty concentrating, teary eye, fatigue. Activity intolerance. Hand and finger weakness and tingling, occurs with and without headache, often upon waking up. Postdrome: Lingering headache PFSH Medical History Superficial venous thrombosis of right upper extremity Major depressive disorder Reactive airway disease Hematuria Fibromyalgia Fibroadenoma Esophageal dysmotility GODWIN (generalized anxiety disorder) Dry eye syndrome Chronic back pain Anemia Surgical History H/O lumbosacral spine surgery Family History Mother HTN (hypertension) Social History Patient Tobacco Use Status: Never used Tobacco Physical Exam Vital Signs: Last Vital Signs Pulse 77 12/29/24 09:45 BP 130/70 12/29/24 09:45 Pulse Ox 99 10/24/25 09:45 Oxygen Delivery Method Room Air 12/29/24 09:45 Const General: cooperative and no acute distress Orientation/consciousness: patient oriented x3 Resp Effort & Inspection: normal respiratory effort and able to speak in complete sentences Neuro Other: Photophobic General: patient oriented x3 and moves all extremities Cranial nerves: Yes CN's II-XII intact bilaterally Gait exam (Neuro): Normal gait present Psych Appearance: grossly normal Speech and movement: Normal speech and movement present Affect: normal affect Attitude: cooperative Telehealth Telehealth Telehealth Platform: Weiju Location of provider rendering services: practice address Location of patient: address on file Patient Identification confirmed using: Name, : Yes Telehealth method: video Patient verbally consented to treatment: Yes Patient verbally consented to billing insurance company: Yes Patient informed of any privacy concerns related to visit: Yes Minutes spent on Phone/Video with Pt.: 39 Assessment & Plan Assessment & Plan (1) Migraine with aura: Code(s): G43.109 - Migraine with aura, not intractable, without status migrainosus Category: Medical Qualifiers: Intractability: not intractable Status migrainosus presence: without status migrainosus Qualified Code(s): G43.109 - Migraine with aura, not intractable, without status migrainosus (2) 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 * Bilateral carpal tunnel splints at night while sleeping- prescription written, patient may take prescription to a medical supply store of her choosing. * Labs as previously ordered, including nutritional studies, anti godwin Ab. * Follow-up with Dr. Whitehead regarding ongoing anemia. * Follow-up with Rheumatology as scheduled Future consideration additional autoimmune workup. For excessive daytime sleepiness/hypersomnia and cognitive symptoms: * Previous In-lab PSG- no evidence for sleep apnea or PLMS. * Continue methylphenidate 10 mg twice a day, upon awakening and before 1 pm * Continue NAC supplement per post COVID-19 Clinic * OT cognitive eval and treat. Treatment contraindications: modafinil due to concurrent oxycodone use. ? For overall headache management: * Continue to optimize good self-care, including but not limited to maintaining a healthy diet, adequate fluid intake, adequate sleep, and engaging in regular physical activity. ? For acute headache treatment: * Continue Ubrogepant (Ubrelvy) 100mg tab, 1/2 - 1 tab (50-100mg) at onset of headache, may repeat in 2 hours. Max of 2 tabs (200mg) per 24 hours. May adjunct with OTC Tylenol 650mg q 4 hours, Ibuprofen 600mg q 6 hours, or Naproxen 440mg q 12 hrs prn. * May use Ubrogepant daily during last week of Emgality cycle, to minimize wearing off effects. * May continue rizatriptan 10 mg p.r.n., may take with Ubrelvy. Previous acute migraine medication trials: Sumatriptan- ineffective, drowsy. Zolmitriptan- ineffective. Acute migraine medication contraindications: None at this time ? For headache prevention medication: * Continue Riboflavin 400mg qam * Start magnesium glycinate 500 mg daily at bedtime * Start a taper of memantine ER. Patient advised this medication is usually prescribed for age-related cognitive difficulties; however, we are starting this specifically for migraine prevention though it may help her cognitive symptoms as well. * Potential side effects of memantine include, but are not limited to: ?Dizziness, nausea, mood changes, and headaches. * Namenda ER taper instructions: * Month 1: Take 7 mg once daily * Month 2: Take 14 mg once daily * Month 3: Take 21 mg once daily * Month for and onward: Take 28 mg once daily * Continue Emgality 120 mg subcu q.month- as patient has had good clinical effect from use- of greater than 30% reduction in monthly migraine days. Previous migraine prevention medication trials: Amitriptyline and Nortriptyline: not tolerated, Duloxetine- caused hallucinations, Venlafaxine- not tolerated, Indomethacin- unsure Migraine prevention medication contraindications: BBs and ant-HTN tx's d/t low BP and h/o syncope. Caution w/ aimovig or qulipta as pt has constipation. ? Will follow-up upon review of above and patient to follow-up in clinic in 6 months or sooner prn. 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
--- OUTSIDE RECORDS SUMMARY | 2024-12-29 10:48 | XMS_ITS | Clinical Summary ---
Author Organization [facility] [address] [place] [address] [place] [phone] Phone Care Team Providers Care Community Relations Police Lieutenant Name Role Phone Bryan Estrella MD Primary Care Provider [phone] Allergies Active Allergy Reactions Criticality Noted Date [...] dose as needed 12/06/19 14 Active peg 667-tptzciwyybtv-dmo cerin 1-0.2-0.2 % drops Place 1 Drop [...] REPEAT IN 2 HOURS 01/21/20 24 Active d-dtrvcf-mfepkwxn (NAC) 600 mg capsule Take 1 capsule [...] 07/06/2021 Post viral syndrome 05/22/2021 Overview (01/31/2024): [facility] Memory problem 09/12/2020 Chronic cough 08/03/2020 Overview (01/31/2024): Dr Avila Reactive airway disease without complication Attention deficit 06/04/2019 Vitamin D deficiency 01/28/2019 Insomnia 12/28/2017 Myopia with astigmatism, bilateral 08/17/2017 Tear film insufficiency, bilateral 08/17/2017 Anemia 12/05/2015 Overview (06/20/2024): Dr Whitehead. 09/25 normal [place]/EGD. Iron infusions. Periodic CBC to be checked by PCP Weak urinary stream 02/27/2014 Fibromyalgia 03/21/2013 Chronic daily headache 10/26/2010 Overview (01/31/2024): Dr Pierre; Dr Angeles Dermoid 10/09/2010 Overview (01/31/2024): Stable in size from 2009 to 2014 Major depressive disorder 07/23/2010 Overview (01/31/2024): Abilify caused side effects. Psychiatry prescribing, [facility] Migraines 07/23/2010 Anxiety 07/13/2008 Chronic back pain 07/13/2008 Overview (01/31/2024): Surgery- Dr. Barillas 07/25/09; justin Ty PVSS Encounters Date Type Department Care Team Description 12/14/2024 Telephone Obstetrics & Gynecology - [address] [phone] Mirta Sampson CNM 12/13/2024 9:29 AM EDT - 12/13/2024 11:59 PM EDT Hospital Encounter [facility] Ultrasound [address] [place] [phone] Pain in right arm Discharge Disposition: Home or Self Care 12/13/2024 8:30 AM EDT Office Visit [facility] Hematology Oncology [address] [place] [phone] Lyudmila Leal PA Superficial thrombophlebitis of left upper extremity (Primary Dx); Pain of left upper extremity; Pain in right arm 12/13/2024 Telephone [facility] Hematology Oncology [address] [place] [phone] Jazz Godinez NE 12/12/2024 Telephone [facility] Hematology Oncology [address] [place] [phone] Sonal Leslie MA 12/07/2024 1:00 PM EDT - 12/07/2024 11:59 PM EDT Hospital Encounter [facility] Infusion Center [address] [place] [phone] Heath Whitehead MD Anemia, unspecified type (Primary Dx) Discharge Disposition: Home or Self Care 12/01/2024 1:00 PM EDT - 12/01/2024 11:59 PM EDT Hospital Encounter [facility] Infusion Center [address] [place] [phone] Heath Whitehead MD Anemia, unspecified type (Primary Dx) Discharge Disposition: Home or Self Care 11/23/2024 2:00 PM EDT - 11/23/2024 11:59 PM EDT Hospital Encounter [facility] Infusion Center [address] [place] [phone] Heath Whitehead MD Anemia, unspecified type (Primary Dx) Discharge Disposition: Home or Self Care 11/14/2024 2:14 PM EDT - 11/14/2024 11:59 PM EDT Hospital Encounter [address] [phone] Heath Whitehead MD Anemia, unspecified type (Primary Dx) Discharge Disposition: Home or Self Care 11/08/2024 1:00 PM EDT Office Visit Obstetrics & Gynecology - [address] [phone] Kiersten Denton CNM Surveillance of contraceptive injection (Primary Dx) 11/02/2024 11:15 AM EDT Office Visit [facility] Hematology Oncology [address] [place] [phone] Heath Whitehead MD Iron deficiency anemia due to chronic blood loss (Primary Dx); Protein S deficiency (CMS/HCC V24) 11/02/2024 Telephone [facility] Hematology Oncology [address] [place] [phone] Sonal Leslie NE 10/30/2024 1:30 PM EDT Office Visit [facility] Hematology Oncology [address] [place] [phone] Heath Whitehead MD Protein S deficiency (CMS/HCC V24) (Primary Dx); Anemia, unspecified type 10/18/2024 3:02 PM EDT - 10/18/2024 11:59 PM EDT Hospital Encounter Radiology Department - [address] [phone] Other abnormal and inconclusive findings on diagnostic imaging of breast Discharge Disposition: Home or Self Care 10/18/2024 3:00 PM EDT - 10/18/2024 11:59 PM EDT Hospital Encounter Radiology Department - [address] [phone] Encounter for screening mammogram for malignant neoplasm of breast Discharge Disposition: Home or Self Care 10/04/2024 Billing Patient Not Present Gastroenterology - [address] [place] [address] Shaji Benavides MD Iron deficiency [...] Date Site/Laterality Comments FLEXIBLE SIGMOIDOSCOPY 07/23/2008 PROCEDURE: AL SIGMOIDOSCOPY FLX DX W/COLLJ SPEC BR/WA IF PFRMD; COMMENT: Normal to 70 cm ESOPHAGOGASTRODUODENOSCOPY 07/23/2008 PROCEDURE: AL EGD TRANSORAL BIOPSY SINGLE/MULTIPLE; COMMENT: Visually normal, duodenal bx: Normal. BACK SURGERY 07/25/2009 PROCEDURE: HISTORICAL BACK SURGERY; COMMENT: Dr. Braillas COLONOSCOPY 09/05/2020 PROCEDURE: HISTORICAL COLONOSCOPY; COMMENT: negative ESOPHAGOGASTRODUODENOSCOPY 09/05/2020 PROCEDURE: AL EGD TRANSORAL BIOPSY SINGLE/MULTIPLE; COMMENT: negative, biopsy pending OTHER SURGICAL HISTORY 10/15/2022 Left PROCEDURE: AL BX BREAST W/DEVICE 1ST LESION STEREOTACTIC GUID [...] DX:Anemia; COMME NT: Dr Whitehead. 09/25 normal [place]/EGD. Iron infusions. Periodic CBC to be checked by PCP Attention deficit 06/04/2019 DX:Attention d eficit Chronic back pain 07/13/2008 DX:Chronic nura k pain; COMMENT: Surgery- Dr. Barillas 07/25/09; justin Ty [facility] Chronic cough 08/03/2020 DX:Chronic cough ; COMMENT: [...] COMMENT: Abilify caused side effects. Psychiatry prescribing, [facility] Vomiting 07/17/2009 DX:Vomiting; COM MENT: 05/15- [...] Mother Alive Sister Alive 1,healthy, live s [facility] Social History Tobacco Use Types Packs/Day [...] PM EDT Office Visit Obstetrics and Gynecology [address] [phone] Nicolle Davis, [facility] [address] [place] [address] 02/05/2025 1:00 PM EST Clinical Support Obstetrics & Gynecology - [address] [phone] 02/06/2025 3:00 PM EST Office Visit [facility] Hematology Oncology [address] [place] [phone] Heath Whitehead MD [address] [place] [address] Health Maintenance Due Date Last Done Comments [...] thrombosis in either [place] ([id number]) -------- FINAL REPORT -------- Dictated By: Shameka Merlos Dictated Date: 12/13/2024 10:15 ET Assigned Physician: Shameka Merlos Reviewed and Electronically Signed By: Shameka Merlos Signed Date: 12/13/2024 10:20 ET Workstation ID: [id number] Transcribed By: Self Edit Transcribed Date: 12/13/2024 [...] thrombosis in either upper extremity. Tanna ARIZA ([id number]) -------- FINAL REPORT -------- Dictated By: Shameka Merlos Dictated Date: 12/13/2024 10:15 ET Assigned Physician: Shameka Merlos Reviewed and Electronically Signed By: Shameka Merlos Signed Date: 12/13/2024 10:20 ET Workstation ID: [id number] Transcribed By: Self Edit Transcribed Date: 12/13/2024 10:15 ET Lyudmila ARIZA CV VASCULAR PROCEDURES Final Result * (ABNORMAL) Vitamin B12 and folate (10/30/2024 2:20 PM EDT) [facility] Vitamin B-12 1,945(H) 250 - 900 pcg/mL LAB CHEMISTRY METHOD 10/30/2024 5:40 PM EDT [facility] Folate 12.8 2.8 - 17.0 ng/ml LAB CHEMISTRY METHOD 10/30/2024 5:40 PM EDT [facility] Blood Venous blood specimen / Unknown Venipuncture / Unknown 10/30/2024 2:20 PM EDT 10/30/2024 4:30 PM EDT Heath Whitehead MD LAB BLOOD ORDERABLES Final R esult [facility] [address] [place] [address], * (ABNORMAL) CBC auto differential (10/30/2024 2:20 PM EDT) [facility] WBC 5.1 4.8 - 10.8 K/mcL LAB HEMETOLOGY METHOD 10/30/2024 5:00 PM EDT [facility] RBC 3.10(L) 3.80 - 4.80 M/mcL LAB HEMETOLOGY METHOD 10/30/2024 5:00 PM [facility] Hemoglobin 8.5(L) 11.5 - 16.0 g/dL LAB HEMETOLOGY METHOD 10/30/2024 5:00 PM [facility] Hematocrit 28.2(L) 35.0 - 47.0 % LAB HEMETOLOGY METHOD 10/30/2024 5:00 PM [facility] MCV 92.2 79.0 - 98.0 FL LAB HEMETOLOGY METHOD 10/30/2024 5:00 PM [facility] MCH 27.8 27.0 - 32.0 pcg LAB HEMETOLOGY METHOD 10/30/2024 5:00 PM [facility] MCHC 30.1(L) 32.0 - 37.0 g/dL LAB HEMETOLOGY METHOD 10/30/2024 5:00 PM [facility] RDW 14.7 11.0 - 15.0 % LAB HEMETOLOGY METHOD 10/30/2024 5:00 PM [facility] Platelets 188 130 - 400 K/mcL LAB HEMETOLOGY METHOD 10/30/2024 5:00 PM [facility] MPV 12.5(H) 7.0 - 11.0 FL LAB HEMETOLOGY METHOD 10/30/2024 5:00 PM [facility] NRBC 0.0 <1.0 % LAB HEMETOLOGY METHOD 10/30/2024 5:00 PM [facility] NRBC Absolute 0.00 <0.10 K/mcL LAB HEMETOLOGY METHOD 10/30/2024 5:00 PM [facility] Neutrophils Relative 60.9 % LAB HEMETOLOGY METHOD 10/30/2024 5:00 PM [facility] Lymphocytes Relative 29.4 % LAB HEMETOLOGY METHOD 10/30[facility]24 [facility] Monocytes Relative 7.5 % LAB HEMETOLOGY METHOD 10/30/2024 5:00 PM [facility] Eosinophils Relative 1.4 % LAB HEMETOLOGY METHOD 10/30/2024 5:00 [facility] Basophils Relative 0.4 % LAB HEMETOLOGY METHOD 10/30/2024 5:00 PM [facility] Immature Granulocytes Relative 0.4 % LAB HEMETOLOGY METHOD 10/30/2024 5:00 PM [facility] Neutrophils Absolute 3.08 1.50 - 7.00 K/mcL LAB HEMETOLOGY METHOD 10/30/2024 5:00 PM [facility] Lymphocytes Absolute 1.49 1.00 - 5.00 K/mcL LAB HEMETOLOGY METHOD 10/30/2024 5:00 PM [facility] Monocytes Absolute 0.38 0.20 - 1.00 K/mcL LAB HEMETOLOGY METHOD 10/30/2024 5:00 PM [facility] Eosinophils Absolute 0.07 0.00 - 0.50 K/mcL LAB HEMETOLOGY METHOD 10/30/2024 5:00 PM [facility] Basophils Absolute 0.02 0.00 - 0.20 K/mcL LAB HEMETOLOGY METHOD 10/30/2024 5:00 PM [facility] Immature Granulocytes Absolute 0.02 0.00 - 0.03 K/mcL LAB HEMETOLOGY METHOD 10/30/2024 5:00 PM [facility] Blood Venous blood specimen / Unknown Venipuncture / Unknown 10/30/2024 2:20 PM EDT 10/30/2024 4:30 PM EDT us Heath Whitehead MD LAB BLOOD ORDERABLES Final R esult [facility] [address] [place] [address], [place] [phone] * (ABNORMAL) Reticulocyte count (10/30/2024 2:20 PM EDT) Retic Ct Abs 0.050 0.030 - 0.090 M/mcL LAB HEMETOLOGY METHOD 10/30/2024 5:00 PM EDT [facility] Retic Ct Pct 1.6 0.7 - 1.7 % LAB HEMETOLOGY METHOD 10/30/2024 5:00 PM EDT [facility] Immature Retic Fract 16.6(H) 2.3 - 15.9 % LAB HEMETOLOGY METHOD 10/30/2024 5:00 PM EDT [facility] Reticulocyte Hemoglobin 29.2 >29.0 pcg LAB HEMETOLOGY METHOD 10/30/2024 5:00 PM EDT [facility] Blood Venous blood specimen / Unknown Venipuncture / Unknown 10/30/2024 2:20 PM EDT 10/30/2024 4:30 PM EDT Heath Whitehead MD LAB BLOOD ORDERABLES Final R esult [facility] [address] [place] [address], [place] [phone] * Haptoglobin (10/30/2024 2:20 PM EDT) Haptoglobin 88 16 - 200 mg/dL LAB CHEMISTRY METHOD 10/30/2024 5:18 PM EDT [facility] Blood Venous blood specimen / Unknown Venipuncture / Unknown 10/30/2024 2:20 PM EDT 10/30/2024 4:30 PM EDT Heath Whitehead MD LAB BLOOD ORDERABLES Final R esult [facility] [address] [place] [address], [place] [phone] * (ABNORMAL) Ferritin (10/30/2024 2:20 PM EDT) Ferritin 7(L) 8 - 252 ng/mL LAB CHEMISTRY METHOD 10/30/2024 5:20 PM EDT [facility] Blood Venous blood specimen / Unknown Venipuncture / Unknown 10/30/2024 2:20 PM EDT 10/30/2024 4:30 PM EDT Heath Whitehead MD LAB BLOOD ORDERABLES Final R esult Performing Organization Address City/[facility]/ZIP Co de Phone Number [facility] [address] [place] [address], [place] [phone] * [place] Breast Limited Left (10/18/2024 3:27 [...] mammography. Return to annual mammography. Mammo Location: [facility], [address] [place] [address], [address], . -------- FINAL REPORT -------- Dictated By: Moisés Dobson Dictated Date: 10/18/2024 15:23 ET Assigned Physician: Moisés Dobson Reviewed and Electronically Signed By: Moisés Dobson Signed Date: 10/18/2024 15:30 ET Workstation ID: [id number] Transcribed By: Self Edit Transcribed Date: 10/18/2024 [...] mammography. Return to annual mammography. Mammo Location: [facility], [address] [place] [address], [address], . -------- FINAL REPORT -------- Dictated By: Moisés Dobson Dictated Date: 10/18/2024 15:23 ET Assigned Physician: Moisés Dobson Reviewed and Electronically Signed By: Moisés Dobson Signed Date: 10/18/2024 15:30 ET Workstation ID: [id number] Transcribed By: Self Edit Transcribed Date: 10/18/2024 [...] mammography. Return to annual mammography. Mammo Location: [facility], [address] [place] [address], [address], . -------- FINAL REPORT -------- Dictated By: Moisés Dobson Dictated Date: 10/18/2024 15:23 ET Assigned Physician: Moisés Dobson Reviewed and Electronically Signed By: Moisés Dobson Signed Date: 10/18/2024 15:30 ET Workstation ID: [id number] Transcribed By: Self Edit Transcribed Date: 10/18/2024 [...] mammography. Return to annual mammography. Mammo Location: [facility], [address] [place] [address], [address], . -------- FINAL REPORT -------- Dictated By: Moisés Dobson Dictated Date: 10/18/2024 15:23 ET Assigned Physician: Moisés Dobson Reviewed and Electronically Signed By: Moisés Dobson Signed Date: 10/18/2024 15:30 ET Workstation ID: [id number] Transcribed By: Self Edit Transcribed Date: 10/18/2024 15:28 ET Jazz Amador CNM IMG BI PROCEDURES F inal Result * Endoscopy, small bowel with ileum (10/04/2024 3:13 PM EDT) Anatomical Region Laterality Modality Endoscopy Historical Provider GI~PROCEDURE ORDERABLES F inal Result * Hepatitis C antibody (06/22/2024 3:46 PM EDT) Hepatitis C Antibody Negative Negative LAB CHEMISTRY METHOD 06/22/2024 5:39 PM EDT [facility] Blood Venous blood specimen / Unknown Venipuncture / Unknown 06/22/2024 3:46 PM EDT 06/22/2024 4:11 PM EDT Mirta Sampson CNM LAB BLOOD ORDERABLES Final Re sult [facility] [address] [place] [address], [place] [phone] * HIV 1,2 antibody, p24 antigen with reflex to differentiation (06/22/2024 3:46 PM EDT) HIV Combo AB/AG Negative Negative LAB CHEMISTRY METHOD 06/22/2024 5:40 PM EDT [facility] Blood Venous blood specimen / Unknown Venipuncture / Unknown 06/22/2024 3:46 PM EDT 06/22/2024 4:11 PM EDT Narrative [facility] - 06/22/2024 5:40 PM EDT This assay is a 4th generation assay allowing for earlier detection of HIV infection by detecting the presence of the HIV-1 p24 antigen as well as the traditional antibodies to HIV type 1 (including group O) and type 2. Use of a 4th generation assay is the current CDC recommendation for HIV screening. [facility] BLOOD ORDERABLES Final Re sult [facility] [address] [place] [address], [place] [phone] * HPV with reflex genotype (06/22/2024 3:01 PM EDT) Pathologist [facility] HPV Negative Negative LAB MICROBIOLOGY METHOD 06/23/2024 1:21 PM EDT [facility] Brushing/Spatula Cervix uteri structure / Unknown 06/22/2024 3:01 PM EDT 06/23/2024 4:55 AM EDT [facility] MOLECULAR DIAGNOSTICS ORD ERABLES Final Result [facility] [address] [place] [address], [place] [phone] from Last 3 Months or Most Recently Relevant to Health Maintenance [place] [id number] [id number] [facility] MEDICAID ADVANTAGE Care Teams Community Relations Police Lieutenant Relationship Specialty Start Date End Date Bryan Estrella MD [address] [place] [address] PCP - General Internal Medicine 01/20/24
--- OUTSIDE RECORDS SUMMARY | 2024-12-29 10:48 | XMS_ITS | Clinical Summary ---
Author Organization [employer] [facility] Address [address] [place] [address] Care Team Providers Care Ore Crushing Dust Collector Name Role Phone Bryan Estrella MD Primary Care Provider [phone] Social History Tobacco Use Types Packs/Day Years [...] to complete this topic Insurance Care Teams Ore Crushing Dust Collector Relationship Specialty Start Date End Date Bryan Estrella MD [address] [place] [address] PCP - General 03/20/24
--- OUTSIDE RECORDS SUMMARY | 2024-12-29 10:48 | XMS_ITS | Clinical Summary ---
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; COVID-19 long hauler manifesting chronic decreased mobility and endurance; COVID-19 mark mariuler manifesting chronic concentration deficit 11/02/2024 Social Work [facility] at [address] [facility] [address] [place] [address] Angela Ricketts LCSW from Last 3 Months Social History Tobacco Use Types Packs/Day Years Used Date Smoking Tobacco: Never Smokeless Tobacco: Never Tobacco Cessation:Counseling Given: Not Answered Alcohol Use Standard Drinks/Week Comments Never 0 (1 standard drink = 0.6 oz pur e alcohol) [facility] Utilities Answer Date Recorded In the [...] your living situation today? I have a [facility] place to live 08/11/2024 Housing Stability [...] Description 03/19/2025 3:00 PM EST Follow Up [facility] at [address] [place] [address] [address] [place], [place] [address] Hedy Pastrana MD [address] [place] [phone] 03/19/2025 3:30 PM EST Social Work [facility] at [address] [place] [phone] Health Maintenance Due Date Last Done Comments [...] GENERIC COMMERCIAL GENERIC COMMERCIAL GENERIC Care Teams Manager Cash Relationship Specialty Start Date End Date Bryan Estrella MD [address] [place] [address] PCP - General Internal Medicine 01/12/24
--- OUTSIDE RECORDS SUMMARY | 2024-12-29 10:48 | XMS_ITS | Clinical Summary ---
Author Organization [facility] Address [address] [place] [address] Care Team Providers Care Newspaper Editor Managing Name Role Phone Bryan Estrella MD Primary Care Provider [phone] Allergies Active Allergy Reactions Criticality Noted Date [...] age to complete this topic Care Teams Newspaper Editor Managing Relationship Specialty Start Date End Date Bryan Estrella MD [address] [place] [phone] PCP - General Internal Medicine 07/31/20
--- OUTSIDE RECORDS SUMMARY | 2024-12-29 10:48 | XMS_ITS | Encounter Summary ---
Demographics Address [address] [place] [address] [address] [place] [address] Mobile Phone Email Address Preferred Language Italian Marital Status Unknown Jainism Affiliation Unknown Race Unknown Ethnic Group Not or Lati no Author Organization [facility] Address [address] [place] [phone] Care Team Providers Care Weight Loss Consultant Name Role Phone Bryan Estrella MD Primary Care Provider Encounter Details Date Type Department Care Team (Late st Contact Info) Description 08/11/2024 Scanned Document [facility] [address] [facility] [address] [place] [address] Hedy Pastrana MD [address] [facility] [address] [place] [address] Social History Tobacco Use Types Packs/Day Years Used Date Smoking Tobacco: Never Smokeless Tobacco: Never Alcohol Use Standard Drinks/Week Comments Never 0 (1 standard drink = 0.6 oz pur e alcohol) [facility] Utilities Answer Date Recorded In the [...] Description 03/19/2025 3:00 PM EST Follow Up [facility] at [address] [place] [phone] Hedy Pastrana MD [address] [place] [phone] 03/19/2025 3:30 PM EST Social Work [facility] at [address] [place] [phone] documented as of this encounter Visit Diagnoses Not on filedocumented in this encounter Care Teams Weight Loss Consultant Relationship Specialty Start Date End Date Bryan Estrella MD [address] [place] [address] PCP - General Internal Medicine 01/12/24 documented as of this encounter
--- OUTSIDE RECORDS SUMMARY | 2024-12-29 10:48 | XMS_ITS | Encounter Summary ---
Author Organization [facility] Address [address] [place], [place] [id number] Care Team Providers Care Cocoa Butter Filter Operator Name Role Phone Bryan Estrella MD Primary Care Provider Encounter Details Date Type Department Care Team ([facility] Contact Info) Description 03/20/2024 Scanned Document [facility] Rheumatology [address] [address] Clemente Atkinson, DO [address] [address] Social History Tobacco Use Types Packs/Day Years [...] on filedocumented in this encounter Care Teams Cocoa Butter Filter Operator Relationship Specialty Start Date End Date Bryan Estrella MD [address] [place] [phone] PCP - General 03/20/24 documented as of this encounter
--- OUTSIDE RECORDS SUMMARY | 2024-12-29 10:48 | XMS_ITS | Encounter Summary ---
Author Organization [facility] Address [address] [place], [place] [id number] Care Team Providers Care Vehicle Glass Technician Name Role Phone Bryan Estrella MD Primary Care Provider Encounter Details Date Type Department Care Team ([facility] Contact Info) Description 05/22/2024 Scanned Document [facility] Rheumatology [address] [address] Clemente Atkinson, [place] [address] Social History Tobacco Use Types Packs/Day Years [...] on filedocumented in this encounter Care Teams Vehicle Glass Technician Relationship Specialty Start Date End Date Bryan Estrella MD [address] [place] [address] [place] [phone] PCP - General 03/20/24 documented as of this encounter
== END 2024-12-29 10:54 | disposition home or self-care (01) ==
LOC: HO.HSMS 09:42
PROVIDERS: Visit Provider Nurse Practitioner Family
DX: G43.109 Migraine with aura, not intractable, without status migrainosus (principal); F06.70 Mild neurocognitive disorder due to known physiological condition without behavioral disturbance; G47.10 Hypersomnia, unspecified; E55.9 Vitamin D deficiency, unspecified
CPT/HCPCS: 99214

== ENCOUNTER → 2024-12-29 09:42 | Outpatient (BNVA) | payer OTHER, SELFPAY | PROVIDERS: Visit Provider Nurse Practitioner Family | DX: G43.109 Migraine with aura, not intractable, without status migrainosus (principal); F06.70 Mild neurocognitive disorder due to known physiological condition without behavioral disturbance; G47.10 Hypersomnia, unspecified; E55.9 Vitamin D deficiency, unspecified; M79.641 Pain in right hand; M79.642 Pain in left hand; M25.60 Stiffness of unspecified joint, not elsewhere classified | CPT/HCPCS: 99212 ==